=== PATIENT | female | born 1995 | race Caucasian/White ===

== ENCOUNTER 2023-05-15 12:06 | Inpatient (IN) ==
[2023-05-15] MEDS ORDERED: LIDOCAINE 1% LOCAL 20 ML VIAL INFIL PRN (12:52)
[2023-05-15] MEDS ORDERED: OXYTOCIN 30 UNITS/NSS 30 UNITS/500 ML BAG IV PRN ×2 (12:52→20:30)
[2023-05-15 13:26] LABS: Hematocrit (blood only) 40.2 % (37.0-47.0); Hemoglobin 12.9 g/dl (12.0-16.0); Mean Corpuscular Hemoglobin 27.1 pg (25.0-34.0); Mean Corpuscular Hgb Conc 32.1 g/dL (32.0-36.0); Mean Corpuscular Volume 84.5 fL (80.0-100.0); Mean Platelet Volume 11.2 fL (9.4-12.4); Platelet Count 213 K/uL (130-400); RDW Coefficient of Variation 14.6 % (11.5-14.5); RDW Standard Deviation 45.1 fL (36.4-46.3); Red Blood Count 4.76 M/uL (4.20-5.40); White Blood Count 9.55 K/ul (4.8-10.8)
[2023-05-15 13:38] LABS: Alanine Aminotransferase 17 U/L (7-52); Albumin Globulin Ratio 1.3 (0.9-2); Albumin Level 3.7 gm/dl (3.4-5.0); Alkaline Phosphatase 237 U/L (34-104); Anion Gap 7 (3-11); Aspartate Aminotransferase 24 U/L (13-39); BUN Creatinine Ratio 15.8 (10-20); Bilirubin,Total 0.4 mg/dl (0.2-1.0); Blood Urea Nitrogen 9 mg/dl (6-23); Calcium 9.5 mg/dl (8.6-10.3); Carbon Dioxide 26 mmol/L (21-32); Chloride 105 mmol/L (98-107); Est GFR (African American) 147.2 ml/min; Globulin 2.8 gm/dl (2.5-4.0); Glucose 95 mg/dl (70-99(Fasting)); Potassium 4.4 mmol/L (3.5-5.1); Sodium 138 mmol/L (136-145); Total Protein 6.5 gm/dl (6.0-8.3)
[2023-05-15 13:56] LABS: Creatinine Urine Random 64.9 mg/dl; Protein Creatinine Ratio Urine 0.2 (0-0.2); Total Protein Urine Random 11.9 mg/dl (0-11.9)
--- NOTE | 2023-05-15 14:18 | History & Physical Report ---
Date of Service May 15, 2023 Assessment & Plan (1) Post-dates : Plan: Cytotec for ripening followed by Oxytocin Admission and Anticipated Discharge Date Admission Date: May 15, 2023 History of Present Illness Chief Complaint: ruptured membranes at term Primary Care Provider: IFRAH PCP 27 F P0000 at 40.2 with complaint of leakage of clear fluid since yesterday at 0830. Seen in office and was Nitrazine positive with ROM positive. GBS is negative. 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 History neg Review of Systems All systems reviewed & are unremarkable except as noted in HPI & below Physical Exam Constitutional: WD/WN, vitals as above Eyes: PERRL, conjunctivae normal, anicteric sclerae Respiratory: normal respiratory effort, lungs clear to auscultation Cardiovascular: RRR, no murmur, no edema Gastrointestinal (Abdomen): Inspection/Auscultation: abdomen normal to inspection Musculoskeletal: Extremities: extremities normal to inspection Skin: no rashes, warm and dry Neurologic: patellar DTR's 2+ bilat, sensation intact Psychiatric: A+Ox3, euthymic affect Genitourinary: no vaginal lesions, no adnexal mass Manual OB Exam: + cervical dilation 1 cm, + cervical effacement 60% and + station high OB Exam Monitor Tracing: + external FHT monitor used, + external uterine monitor used, + category I and + normal FHT variability EFW 8-9 lbs. Results & Data Vital Signs (Past 12 Hours) Vital Signs Pulse Resp BP 05/15/23 13:40 106 H 05/15/23 13:40 144/97 H 05/15/23 13:11 18 05/15/23 12:43 106 H 150/84 H 05/15/23 12:27 104 H 158/92 H Laboratory Results Laboratory Results - last 24 hr 05/15/23 05/15/23 13:00 13:07 WBC 9.55 RBC 4.76 Hgb 12.9 Hct 40.2 MCV 84.5 MCH 27.1 MCHC 32.1 RDW Std Deviation 45.1 RDW Coeff of Linda 14.6 H Plt Count 213 MPV 11.2 Sodium 138 Potassium 4.4 Chloride 105 Carbon Dioxide 26 Anion Gap 7 BUN 9 Creatinine 0.57 L Est Cr Clr Drug Dosing Not Reportable Est GFR ( Amer) 147.2 Est GFR (Non-Af Amer) 127.0 BUN/Creatinine Ratio 15.8 Glucose 95 Calcium 9.5 Total Bilirubin 0.4 AST 24 ALT 17 Alkaline Phosphatase 237 H Total Protein 6.5 Albumin 3.7 Globulin 2.8 Albumin/Globulin Ratio 1.3 Ur Random Creatinine 64.9 U Random Total Protein 11.9 Protein/Creatinin Ratio 0.2 Monitoring External Monitor Cat 1 no contractions noted (1) Post-dates Post-term type: 40-42 weeks gestation Qualified Code(s): O48.0 - Post-term
[2023-05-15] MEDS: miSOPROStoL 50 MCG TAB PO SCH (14:35)
[2023-05-15] MEDS: LACTATED RINGER'S 1,000 ML IV PRN (20:58)
--- OUTSIDE RECORDS SUMMARY | 2023-05-15 21:11 | External Medical Summary | Summary of Care ---
Author Name Unknown Organization [facility] Address [address] [place] [facility] [place] [address] Phone [phone] Care Team Providers Care Tight Barrel Inspector Name Role Phone Unavailable Primary Care Provider Unavailabl e Reason for Visit * Reason Comments Return Visit Encounter Details Date Type Department Care Team (Late st Contact Info) Description 05/01/2023 3:30 PM EST Office Visit Gynecology/Obstetric s [facility] [address] [place] [address] Trisha Garcia PA-C [address] [place] [address] Encounter for supervision of normal first in third trimester*; Maternal varicella, non-immune; Antepartum anemia complicating Allergies No known active allergiesdocumented as of this encounter (statuses as of 05/01/2023) Medications Medication Sig Dispensed Refills Start Date End Date Status 19 29-1 MG Oral Tablet Chewable Take by mouth. 0 Active Iron-Vitamin C 65-125 MG Oral Tablet (Vitron C)Indications:Antepar karly anemia complicating Take 1 Tablet by mouth 2 times a day. 60 Tablet 3 02/27/2023 Active Breast Pump Dispense double electric breast pump. Dx Z39.1 1 Each 0 04/12/2023 Active documented as of this encounter (statuses as of 05/01/2023) Active Problems Problem Noted Date Diagnosed Date Antepartum anemia complicating 023 Overview: Declines iron infusions. Agreeable to oral iron Maternal varicella, non-immune 10/12/2022 Supervision of normal first 10/11/2022 Estimated Date of Delivery Comme nts Yes 05/13/2023 Based on last me nstrual period of 08/06/2022 (Exact Date) documented as of this encounter (statuses as of 05/01/2023) Immunizations Name Administration Dates Next Due SEASONAL INFLUENZA, PF, 6 M & Above, IM , (FLULAVAL or FLUZONE) 04/04/2023 TDAP (age 10 and older)(Boostrix) 03/07/2023 documented as of this encounter Social History Tobacco Use Types Packs/Day Years Used Date Smoking Tobacco: Never Smokeless Tobacco: Never Alcohol Use Standard Drinks/Week Comments Not Currently 0 (1 standard drink = 0.6 oz pur e alcohol) PHQ-2 Answer Date Recorded PHQ Adult Total Score 0 05/01/2023 Hunger Vital Sign Answer Date Recorded Within the past 12 months, y ou worried that your food would run out before you got the money to buy more. Never true 01/05/20 23 Within the past 12 months, t he food you bought just didn't last and you didn't have money to get more. Never true 01/04/2023 [place] Depression Scale Answer Date Recorded [place] Depression Scale Total 6 04/04/2023 The thought of harming myself has occurred to me . Never 04/04/2023 Estimated Date of Delivery Comme nts Yes 05/13/2023 Based on last me nstrual period of 08/06/2022 (Exact Date) Sex and Gender Information Value Date Recorded Sex Assigned at Female 09/20/2022 8:44 PM EDT Gender Identity Female 09/20/2022 8:44 PM EDT Sexual Orientation Straight 09/20/2022 8: 44 PM EDT Job Start Date Occupation Industry Not on file Not on file Not on file documented as of this encounter Last Filed Vital Signs Vital Sign Reading Time Taken Comments Blood Pressure 108/68 05/01/2023 2:56 PM EST Pulse - - Temperature - - Respiratory Rate - - Oxygen Saturation - - Inhaled Oxygen Concentration - - Weight 91.2 kg (201 lb) 05/01/2023 2:56 PM EST Height 172.7 cm (5' 8") 05/01/2023 2:56 PM EST Body Mass Index 30.56 05/01/2023 2:56 PM EST documented in this encounter Progress Notes * Trisha Garcia PA-C - 05/01/2023 3:13 PM EST 38w2d First time seeing patient. Vertex by ultrasound today. + FHT 152 bpm. Denies bleeding, leaking, contractions. Baby is moving well. Does not wish to discuss IOL today. Labor precautions. RTC in 1 week Trisha Garcia PA-C * Zena Galindo LPN - 05/01/2023 2:58 PM EST 38w2d Pt denies any concerns. documented in this encounter Plan of Treatment Upcoming Encounters Date Type Department Care Team (Late st Contact Info) Description 05/10/2023 11:30 AM EST [facility] [address] [place] [address] BackerPayton CRNP [address] [place] [address] Health Maintenance Due Date Last Done Comments Hepatitis B (1 of 3 - 3-dose series) 1995 COVID-19 Vaccine (#1) 06/15/1996 Depression Screening 2007 Pap Smear 05/07/2024 05/07/2021 DTaP,Tdap,and Td Vaccines (2 - Td or Tdap) 03/07/2033 03/07/2023 Influenza Vaccine (FLU shot) Completed 04/04/2023 GARDASIL-HPV IMMUNIZATION SERIES Aged Out No longer eligible based on patient's age to complete this topic MENINGOCOCCAL (MENACTRA/MENVEO) Aged Out No longer eligible based on patient's age to complete this topic Pneumococcal Vaccine: Pediat rics (0 to 5 Years) and At-Risk Patients (6 to 64 Years) Aged Out No longer eligi ble based on patient's age to complete this topic documented as of this encounter Medical Devices Not on filedocumented as of this encounter Visit Diagnoses Diagnosis Encounter for supervision of normal first in third trimester- Primary Supervision of normal first Maternal varicella, non-immune Supervision of other high-risk Antepartum anemia complicating Anemia, antepartum documented in this encounter
--- OUTSIDE RECORDS SUMMARY | 2023-05-15 21:11 | External Medical Summary | Summary of Care ---
Author Name Unknown Organization [facility] Address [address] [place] [address] Phone [phone] Care Team Providers Care Professor Of Architecture Name Role Phone Unavailable Primary Care Provider Unavailabl e Reason for Visit * Reason Comments Return Visit Encounter Details Date Type Department Care Team (Late st Contact Info) Description 04/20/2023 2:15 PM EST Office Visit Gynecology/Obstetric s [facility] [address] [place] [address] Pham Mixon CRNP [address] [place] [address] Encounter for supervision of normal first in third trimester*; Maternal varicella, non-immune; Antepartum anemia complicating Allergies No known active allergiesdocumented as of this encounter (statuses as of 04/20/2023) Medications Medication Sig Dispensed Refills Start Date [...] as of this encounter (statuses as of 04/20/2023) Active Problems Problem Noted Date Diagnosed Date Antepartum anemia complicating 023 Overview: Declines iron infusions. Agreeable to oral iron Maternal varicella, non-immune 10/12/2022 Supervision of normal first 10/11/2022 Estimated Date of Delivery Comme nts Yes 05/13/2023 Based on last me nstrual period of 08/06/2022 (Exact Date) documented as of this encounter (statuses as of 04/20/2023) Immunizations Name Administration Dates Next Due SEASONAL INFLUENZA, PF, 6 M & Above, IM , (FLULAVAL or FLUZONE) 04/04/2023 TDAP (age 10 and older)(Boostrix) 03/07/2023 documented as of this encounter Social History Tobacco Use Types Packs/Day Years Used Date Smoking Tobacco: Never Smokeless Tobacco: Never Alcohol Use Standard Drinks/Week Comments Not Currently 0 (1 standard drink = 0.6 oz pur e alcohol) Hunger Vital Sign Answer Date Recorded Within the past 12 months, y ou worried that your food would run out before you got the money to buy more. Never true 01/05/20 Within the past 12 months, t he food you bought just didn't last and you didn't have money to get more. Never true 01/04/2023 [place] Depression Scale Answer Date Recorded [place] Depression Scale Total 6 04/04/2023 The thought [...] Sign Reading Time Taken Comments Blood Pressure 102/62 04/20/2023 2:06 PM EST Pulse - - Temperature - - Respiratory Rate - - Oxygen Saturation - - Inhaled Oxygen Concentration - - Weight 89.5 kg (197 lb 6.4 oz) 04/20/2023 2:06 P M EST Height 172.7 cm (5' 8") 04/20/2023 2:06 PM EST Body Mass Index 30.01 04/20/2023 2:06 PM EST documented in this encounter Progress Notes * Pham Mixon CRNP - 04/20/2023 2:31 PM EST 36w5d Complaints: none Feeling well overall. Good FM. No contractions, bleeding, or LOF. Uncertain of position, u/s with next visit. GBS today. Pile Header Documentation Provider requested credit coordinator. Name of credit coordinator: NANCY Steward * Zena Galindo LPN - 04/20/2023 2:15 PM EST 36w5d Pt denies any concerns, GBS today documented in this encounter Plan of Treatment Upcoming Encounters Date Type Department Care Team (Late st Contact Info) Description 05/01/2023 2:15 PM EST Imaging Radiology [facility] [address] [place] [address] 05/01/2023 3:30 PM EST Office Visit Gynecology/Obstetrics [facility] [address] [place] [address] Trisha Garcia PA-C [address] [place] [address] Pending Results Name Type Priority Associated Diagnoses Date /Time GROUP B STREP CULTURE/PCR Lab Routine Encounter for supervision of normal first in third trimester 04/20/2023 2:35 PM EST Scheduled Orders Name Type Priority Associated Diagnoses Orde r Schedule US PREG LIMITED 1 OR MORE FETUSES Medical Imaging Routine Encounter for supervision of normal first in third trimester Expected: 04/27/2023 (Approximate), Expires: 05/20/2024 Health Maintenance Due Date Last Done Comments [...]
--- OUTSIDE RECORDS SUMMARY | 2023-05-15 21:11 | External Medical Summary ---
Author Name Unknown Address Unknown Organization [facility] [address] [place] [address] Laboratory Report Ordering Provider Test Date Status MUSA HANSEN 05/15/2023 11:24:01 Final Observation Date Value Abnormality Reference (Units ) Status Premature Rupture Membrane risk 05/15/2023 11:24:01 Positive Abnormal Negative Final Performing [facility] [place] [address]
--- OUTSIDE RECORDS SUMMARY | 2023-05-15 21:11 | External Medical Summary | Summary of Care ---
Author Name Unknown Organization [facility] Address [address] [facility] [address] Phone [phone] Care Team Providers Care Public Transit Trolley Driver Name Role Phone Unavailable Primary Care Provider Unavailabl e Encounter Details Date Type Department Care Team (Late st Contact Info) Description 04/20/2023 Telephone Gynecology/Obstetrics [facility] [address] [place] [address] Pham Mixon CRNP [address] [place] [address] Allergies No known active allergiesdocumented as of [...] money to get more. Never true 01/04/2023 [place] Depression Scale Answer Date Recorded [place] Depression Scale Total 6 04/04/2023 The thought [...] on file documented as of this encounter Miscellaneous Notes * Telephone Encounter - Zena Galindo LPN - 04/20/2023 3:33 PM EST [facility] pre-admit forms and plan faxed, placed in scan bin. documented in this encounter Plan of Treatment Upcoming Encounters Date Type Department Care Team (Late st Contact Info) Description 05/01/2023 2:15 PM EST Imaging Radiology [facility] [address] [facility] [place] [address] 05/01/2023 3:30 PM EST Office Visit Gynecology/Obstetrics [facility] [address] [place] [address] Trisha Garcia PA-C [address] [place] [address] Health Maintenance Due Date Last Done Comments [...]
--- OUTSIDE RECORDS SUMMARY | 2023-05-15 21:11 | External Medical Summary | Summary of Care ---
Author Name Unknown Organization [facility] Address [address] [facility] [place] [address] Phone [phone] Care Team Providers Care Photolith Operator Name Role Phone Unavailable Primary Care Provider Unavailabl e Reason for Visit * Reason Comments Return Visit Encounter Details Date Type Department Care Team (Late st Contact Info) Description 05/10/2023 11:30 AM EST Office Visit Gynecology/Obstetric s [facility] [address] [place] [address] BackPayton cage CRNP [address] [place] [address] Encounter for supervision of normal first in third trimester*; Maternal varicella, non-immune; Antepartum anemia complicating Allergies No known active allergiesdocumented as of this encounter (statuses as of 05/10/2023) Medications Medication Sig Dispensed Refills Start Date [...] as of this encounter (statuses as of 05/10/2023) Active Problems Problem Noted Date Diagnosed Date Antepartum anemia complicating 023 Overview: Declines iron infusions. Agreeable to oral iron Maternal varicella, non-immune 10/12/2022 Supervision of normal first 10/11/2022 Estimated Date of Delivery Comme nts Yes 05/13/2023 Based on last me nstrual period of 08/06/2022 (Exact Date) documented as of this encounter (statuses as of 05/10/2023) Immunizations Name Administration Dates Next Due SEASONAL [...] money to get more. Never true 01/04/2023 [place] Depression Scale Answer Date Recorded [place] Depression Scale Total 6 04/04/2023 The thought [...] Sign Reading Time Taken Comments Blood Pressure 110/66 05/10/2023 11:23 AM EST Pulse - - Temperature - - Respiratory Rate - - Oxygen Saturation - - Inhaled Oxygen Concentration - - Weight 91.6 kg (202 lb) 05/10/2023 11:23 AM EST Height - - Body Mass Index 30.71 05/01/2023 2:56 PM EST documented in this encounter Progress Notes * Payton Enriquez CRNP - 05/10/2023 11:27 AM EST 39w4d Good movement. No signs of labor. Wants to wait until next visit to plan post dates IOL. Discussed peds. Plans to use NFP , aware of limitations with . 1 week return NANCY Segovia * Radha Moise LPN - 05/10/2023 11:23 AM EST 39w4d Denies vaginal bleeding/rom + movement No new concerns documented in this encounter Plan of Treatment Upcoming Encounters Date Type Department Care Team (Late st Contact Info) Description 05/17/2023 11:45 AM EST Office Visit Gynecology/Obstetrics [facility] [address] [place] [address] Trisha Garcia PA-C [address] [place] [address] Health Maintenance Due Date Last Done Comments Hepatitis B (1 of 3 - 3-dose series) 1995 COVID-19 Vaccine (#1) 06/15/1996 Depression Screening 05/01/2024 05/01/2023 Pap Smear 05/07/2024 05/07/2021 DTaP,Tdap,and Td Vaccines [...]
--- OUTSIDE RECORDS SUMMARY | 2023-05-15 21:12 | External Medical Summary | Summary of Care ---
Author Name Unknown Organization [facility] Address [address] [facility] [place] [address] Phone [phone] Care Team Providers Care Medical Chief Technician Name Role Phone Unavailable Primary Care Provider Unavailabl e Encounter Details Date Type Department Care Team Description 02/23/2023 Telephone [facility] [address] [place] [address] Pham Mixon CRNP [address] [place] [address] Allergies No known active allergiesdocumented as of this encounter (statuses as of 02/27/2023) Medications Medication Sig Dispensed Refills Start Date End Date Status 19 29-1 MG Oral Tablet Chewable Take by mouth. 0 Activ e documented as of this encounter (statuses as of 02/27/2023) Active Problems Problem Noted Date Antepartum anemia complicating 02/23/2023 Overview: Blood management Maternal varicella, non-immune 3 Supervision of normal first Estimated Date of Delivery Comme nts Yes 05/13/2023 Based on last me nstrual period of 08/06/2022 (Exact Date) documented as of this encounter (statuses as of 02/27/2023) Social History Tobacco Use Types Packs/Day Years Used Date Smoking Tobacco: Never Smokeless Tobacco: Never Alcohol Use Standard Drinks/Week Comments Not Currently 0 (1 standard drink = 0.6 oz pur e alcohol) Food Insecurity Answer Date Recorded Within the past 12 months, y ou worried that your food would run out before you got money to buy more. Never true 01/05/2023 Within the past 12 months, t he food you bought just didn't last and you didn't have money to get more. Never true 01/05/2023 Estimated Date of Delivery Comme nts Yes 05/13/2023 Based on last me nstrual period of 08/06/2022 (Exact Date) Sex Assigned at Date Recorded Female 09/20/2022 8:44 PM E DT Job Start Date Occupation Industry Not on file Not on file Not on file documented as of this encounter Miscellaneous Notes * Telephone Encounter - Alexia Lynhc RN - 02/27/2023 11:41 AM EDT Attempted to call patient. No answer, LVM to return call. * Telephone Encounter - NANCY Robles - 02/27/2023 10:06 AM EDT Please try again to call pt to notify of original message. * Telephone Encounter - Kavita King LPN - 02/23/2023 1:21 PM EDT left message for patient to call office * Telephone Encounter - NANCY Robles - 02/23/2023 12:49 PM EDT Please make pt aware she passed her glucola but she is anemic. Recommend referral to blood management for iron infusions. If agreeable route back and I'll place order. In addition her TSH is mildly elevated. Would recommend she reach out to PCP to see if/when additional testing would be indicated. It was done reflexively because of the anemia. documented in this encounter Plan of Treatment Upcoming Encounters Date Type Specialty Care Team Description 03/07/2023 Office Visit Gynecology Obstetrics Pham Mixon CRNP [address] [place] [address] Health Maintenance Due Date Last Done Comments Hepatitis B (1 of 3 - 3-dose series) 1995 COVID-19 Vaccine (#1) 06/15/1996 Depression Screening 2007 DTaP,Tdap,and Td Vaccines (1 - Tdap) 12/13/2014 Influenza Vaccine (FLU shot) (#1) 2023 Pap Smear 05/07/2024 05/07/2021 Hepatitis C Screening Completed 10/11/2022 , 10/11/2022, 10/11/2022 GARDASIL-HPV IMMUNIZATION SERIES Aged Out No longer eligible b ased on patient's age to complete this topic MENINGOCOCCAL (MENACTRA/MENVEO) Aged Out No longer eligible b ased on patient's age to complete this topic Pneumococcal Vaccine: Pediatrics (0 to 5 Years) and At-Risk Patients (6 to 64 Years) Aged Out No longer eligible b ased on patient's age to complete this topic documented as of this encounter Medical Devices Not on filedocumented as of this encounter
--- OUTSIDE RECORDS SUMMARY | 2023-05-15 21:12 | External Medical Summary | Summary of Care ---
Author Name Unknown Organization [facility] Address [address] [facility] [place] [address] Phone [phone] Care Team Providers Care Red Hat Linux Administrator Name Role Phone Unavailable Primary Care Provider Unavailabl e Reason for Visit * Reason Comments Return Visit Encounter Details Date Type Department Care Team Description 03/21/2023 Office Visit Gynecology/Obstetrics [facility] [address] [place] [address] Pham Mixon CRNP [address] [place] [address] Encounter for supervision of normal first in third trimester*; Maternal varicella, non-immune; Antepartum anemia complicating Allergies No known active allergiesdocumented as of this encounter (statuses as of 03/21/2023) Medications Medication Sig Dispensed Refills Start Date End Date Status 19 29-1 MG Oral Tablet Chewable Take by mouth. 0 Active Iron-Vitamin C 65-125 MG Oral Tablet (Vitron C)Indications:Antepart um anemia complicating Take 1 Tablet by mouth 2 times a day. 60 Tablet 3 02/27/2023 Active documented as of this encounter (statuses as of 03/21/2023) Active Problems Problem Noted Date Antepartum anemia complicating 02/23/2023 Overview: Declines iron infusions. Agreeable to oral iron Maternal varicella, non-immune Supervision of normal first Estimated Date of Delivery Comme nts Yes 05/13/2023 Based on last me nstrual period of 08/06/2022 (Exact Date) documented as of this encounter (statuses as of 03/21/2023) Immunizations Name Administration Dates Next Due TDAP (age 10 and older)(Boostrix) 03/07/2023 documented [...] Sign Reading Time Taken Comments Blood Pressure 118/76 03/21/2023 8:16 AM EDT Pulse - - Temperature - - Respiratory Rate - - Oxygen Saturation - - Inhaled Oxygen Concentration - - Weight 85.7 kg (189 lb) 03/21/2023 8:16 AM EDT Height 172.7 cm (5' 8") 03/21/2023 8:16 AM EDT Body Mass Index 28.74 03/21/2023 8:16 AM EDT documented in this encounter Progress Notes * NANCY Robles - 03/21/2023 8:33 AM EDT 32w3d No concerns. Baby moving well. No contractions, bleeding, or LOF. Taking iron as directed. Repeat CBC today. NANCY Robles documented in this encounter Nursing Notes * Edith Culp LPN - 03/21/2023 8:16 AM EDT 32w3d Will stop at lab for CBC after todays appt Denies concerns. Leaking breast milk at night. documented in this encounter Plan of Treatment Upcoming Encounters Date Type Specialty Care Team Description 04/04/2023 Office Visit Gynecology Obstetrics Pham Mixon CRNP [address] [place] [address] Health Maintenance Due Date Last Done Comments Hepatitis B (1 of 3 - 3-dose series) 1995 COVID-19 Vaccine (#1) 06/15/1996 Depression Screening 2007 Influenza Vaccine (FLU shot) (#1) 2023 Pap Smear 05/07/2024 05/07/2021 DTaP,Tdap,and Td Vaccines (2 - Td or Tdap) 03/07/2033 03/07/2023 GARDASIL-HPV IMMUNIZATION SERIES Aged Out No longer [...]
--- OUTSIDE RECORDS SUMMARY | 2023-05-15 21:12 | External Medical Summary | Summary of Care ---
Author Name Unknown Organization [facility] Address [address] [facility] [place] [address] Phone [phone] Care Team Providers Care Culinary Arts Teacher Name Role Phone Unavailable Primary Care Provider Unavailabl e Reason for Visit * Reason Comments Return Visit Encounter Details Date Type Department Care Team Description 02/07/2023 Office Visit Gynecology/Obstetrics [facility] [address] [place] [address] Pham Mixon CRNP [address] [place] [address] Encounter for supervision of normal first in second trimester*; Maternal varicella, non-immune Allergies No known active allergiesdocumented as of this encounter (statuses as of 02/07/2023) Medications Medication Sig Dispensed Refills Start Date End Date Status 19 29-1 MG Oral Tablet Chewable Take by mouth. 0 Activ e documented as of this encounter (statuses as of 02/07/2023) Active Problems Problem Noted Date Maternal varicella, non-immune 3 Supervision of normal first Estimated Date of Delivery Comme nts Yes 05/13/2023 Based on last me nstrual period of 08/06/2022 (Exact Date) documented as of this encounter (statuses as of 02/07/2023) Social History Tobacco Use Types Packs/Day Years [...] Sign Reading Time Taken Comments Blood Pressure 112/62 02/07/2023 8:05 AM EDT Pulse - - Temperature - - Respiratory Rate - - Oxygen Saturation - - Inhaled Oxygen Concentration - - Weight 78 kg (172 lb) 02/07/2023 8:05 AM EDT Height 172.7 cm (5' 8") 02/07/2023 8:05 AM EDT Body Mass Index 26.15 02/07/2023 8:05 AM EDT documented in this encounter Progress Notes * NANCY Robles - 02/07/2023 8:19 AM EDT 26w3d Complaints: none Feeling well overall. Good FM. No contractions, bleeding, or LOF. Glucola with next visit. NANCY Robles documented in this encounter Nursing Notes * Dionne Landon LPN - 02/07/2023 8:06 AM EDT 26w3d Denies any issues documented in this encounter Plan of Treatment Upcoming Encounters Date Type Specialty Care Team Description 02/22/2023 Laboratory Laboratory Kwesi Valle [address] [facility] [place] [address] Scheduled Orders Name Type Priority Associated Diagnoses Orde r Schedule 50-G GESTATIONAL GLUCOSE, 1 HOUR Lab Routine Encounter for supervision of normal first in second trimester Expected: 02/14/2023 (Approximate), Expires: 02/08/2024 CBC WITH WBC DIFFERENTIAL AND ANEMIA REFLEX WORKUP Lab Routine Encounter for supervision of normal first in second trimester Expected: 02/14/2023 (Approximate), Expires: 02/08/2024 SYPHILIS ANTIBODY SCREEN WITH REFLEX TO RPR Lab Routine Encounter for supervision of normal first in second trimester Expected: 02/14/2023 (Approximate), Expires: 02/08/2024 Health Maintenance Due Date Last Done Comments Hepatitis B (1 of 3 - 3-dose series) 1995 COVID-19 Vaccine (#1) 06/15/1996 Depression Screening, Annual for Pts 12 and Over 2007 DTaP,Tdap,and Td Vaccines (1 - Tdap) [...] Encounter for supervision of normal first in second trimester- Primary Supervision of normal first Maternal varicella, non-immune Supervision of other high-risk documented in this encounter
--- OUTSIDE RECORDS SUMMARY | 2023-05-15 21:12 | External Medical Summary | Summary of Care ---
Author Name Unknown Organization [facility] Address [address] [place] [address] Phone [phone] Care Team Providers Care Enrollment Counselor Name Role Phone Unavailable Primary Care Provider Unavailabl e Reason for Visit * Reason Comments Outpatient Testing Encounter Details Date Type Department Care Team Description 02/22/2023 Laboratory [facility] [address] [facility] 132 [place] [address] Encounter for supervision of normal first in second trimester Allergies No known active allergiesdocumented as of this encounter (statuses as of 02/22/2023) Medications Medication Sig Dispensed Refills Start Date End Date Status 19 29-1 MG Oral Tablet Chewable Take by mouth. 0 Activ e documented as of this encounter (statuses as of 02/22/2023) Active Problems Problem Noted Date Maternal varicella, non-immune 3 Supervision of normal first Estimated Date of Delivery Comme nts Yes 05/13/2023 Based on last me nstrual period of 08/06/2022 (Exact Date) documented as of this encounter (statuses as of 02/22/2023) Social History Tobacco Use Types Packs/Day Years [...] on file documented as of this encounter Plan of Treatment Upcoming Encounters Date Type Specialty Care Team Description 03/07/2023 Office Visit Gynecology Obstetrics Ap[place], NANCY Villafuerte [address] [place] [address] Pending Results Name Type Priority Associated Diagnoses Date /Time 50-G GESTATIONAL GLUCOSE, 1 HOUR Lab Routine Encounter for supervision of normal first in second trimester 02/22/2023 10:22 AM EDT CBC WITH WBC DIFFERENTIAL AND ANEMIA REFLEX WORKUP Lab Routine Encounter for supervision of normal first in second trimester 02/22/2023 10:22 AM EDT SYPHILIS ANTIBODY SCREEN WITH REFLEX TO RPR Lab Routine Encounter for supervision of normal first in second trimester 02/22/2023 10:22 AM EDT ANEMIA CBC Lab Routine Encounter for supervision of normal first in second trimester 02/22/2023 10:22 AM EDT DIFFERENTIAL, AUTOMATED Lab Routine Encounter for supervision of normal first in second trimester 02/22/2023 10:22 AM EDT ANEMIA REFLEX CHEMISTRY HOLD Lab Routine Encounter for supervision of normal first in second trimester 02/22/2023 10:22 AM EDT SYPHILIS ANTIBODY SCREEN Lab Routine Encounter for supervision of normal first in second trimester 02/22/2023 10:22 AM EDT Health Maintenance Due Date Last Done Comments [...] supervision of normal first in second trimester Supervision of normal first documented in this encounter
--- OUTSIDE RECORDS SUMMARY | 2023-05-15 21:12 | External Medical Summary | Summary of Care ---
Author Name Unknown Organization [facility] Address [address] [facility] [address] Phone [phone] Care Team Providers Care Supervisor Fruit Grading Name Role Phone Unavailable Primary Care Provider Unavailabl e Reason for Visit * Reason Comments Return Visit Encounter Details Date Type Department Care Team (Late st Contact Info) Description 04/20/2023 2:15 PM EST Office Visit Gynecology/Obstetric s Francesca Valle [address] [place] [address] Pham Mixon CRNP [address] [place] [address] Encounter for supervision of normal first in [...] money to get more. Never true 01/04/2023 [place] Depression Scale Answer Date Recorded [place] Depression Scale Total 6 04/04/2023 The thought [...] position, u/s with next visit. GBS today. Faucets Assembler Documentation Provider requested principal automation engineer. Name of principal automation engineer: NANCY Steward * Zena Galindo LPN - 04/20/2023 2:15 PM EST 36w5d Pt denies any concerns, GBS today documented in this encounter Plan of Treatment Upcoming Encounters Date Type Department Care Team (Late st Contact Info) Description 05/01/2023 2:15 PM EST [facility] [place] [address] 05/01/2023 3:30 PM EST Office Visit Gynecology/Obstetrics [facility] [address] [place] [address] Trisha Garcia PA-C [address] [place] [address] Pending Results Name Type Priority Associated Diagnoses [...]
--- OUTSIDE RECORDS SUMMARY | 2023-05-15 21:12 | External Medical Summary | Summary of Care ---
Author Name Unknown Organization [facility] [address] [facility] [address] Phone [phone] Care Team Providers Care Diving Fisher Name Role Phone Unavailable Primary Care Provider Unavailabl e Encounter Details Date Type Department Care Team (Late st Contact Info) Description 04/04/2023 10:40 AM EDT Immunization Ancillary [facility] [address] [facility] [place] [address] [facility] Shot Clinic [facility] [address] Arrived Allergies No known active allergiesdocumented as of this encounter (statuses as of 04/04/2023) Medications Medication Sig Dispensed Refills Start Date End Date Status 19 29-1 MG Oral Tablet Chewable Take by mouth. 0 Active Iron-Vitamin C 65-125 MG Oral Tablet (Vitron C)Indications:Antepart um anemia complicating Take 1 Tablet by mouth 2 times a day. 60 Tablet 3 02/27/2023 Active documented as of this encounter (statuses as of 04/04/2023) Active Problems Problem Noted Date Diagnosed Date Antepartum anemia complicating 023 Overview: Declines iron infusions. Agreeable to oral iron Maternal varicella, non-immune 10/12/2022 Supervision of normal first 10/11/2022 Estimated Date of Delivery Comme nts Yes 05/13/2023 Based on last me nstrual period of 08/06/2022 (Exact Date) documented as of this encounter (statuses as of 04/04/2023) Immunizations Name Administration Dates Next Due SEASONAL [...] money to get more. Never true 01/04/2023 [place] Depression Scale Answer Date Recorded [place] Depression Scale Total 6 04/04/2023 The thought [...] Care Team (Late st Contact Info) Description 04/18/2023 8:45 AM EST Office Visit Gynecology/Obstetrics [facility] [address] [place] [address] Payton Enriquez CRNP [address] [place] [address] Health Maintenance Due Date Last Done Comments [...]
--- OUTSIDE RECORDS SUMMARY | 2023-05-15 21:12 | External Medical Summary | Summary of Care ---
Author Name Unknown Organization [facility] Address [address] [facility] [place] [address] Phone [phone] Care Team Providers Care Sales Supervisor Name Role Phone Unavailable Primary Care Provider Unavailabl e Encounter Details Date Type Department Care Team Description 02/23/2023 Tele[facility] [address] [place] [address] David Mixon CRNP [address] [place] [address] [...] Agreeable to oral iron Maternal varicella, non-immune 3 Supervision of normal [...] as of this encounter Miscellaneous Notes * Addendum Note - NANCY Robles - 02/27/2023 1:10 PM EDTAddended by: DAVID MIXON on: 02/27/2023 01:10 PM Modules accepted: Orders * Telephone Encounter - NANCY Robles - 02/27/2023 1:09 PM EDT Sent to pharmacy. * Telephone Encounter - Alexia Lynch RN - 02/27/2023 12:40 PM EDT Patient called back. Made aware. Patient states she is not comfortable with iron infusions at this time. Would prefer to do an oral supplement. Patient reports that her does not have iron init and she is not currently taking a supplement. Patient uses [facility] pharmacy [facility]. * Telephone Encounter - Alexia Lynch RN - 02/27/2023 11:41 AM EDT Attempted [...] Team Description 03/07/2023 Office Visit Gynecology Obstetrics David Mixon CRNP [address] [facility] [place] [address] Health Maintenance Due Date Last Done Comments [...] as of this encounter Visit Diagnoses Diagnosis Antepartum anemia complicating - Primary Anemia, antepartum documented in this encounter
--- OUTSIDE RECORDS SUMMARY | 2023-05-15 21:12 | External Medical Summary ---
Author Name Unknown Address Unknown Organization [id number]:[facility] [address] [place] [address] Laboratory Report Ordering Provider Test Date Status ARLIN HERNANDEZ 02/22/2023 10:22:53 Final Observation Date Value Abnormality Reference (Units ) Status Creatinine 02/22/2023 10:22:53 0.5 0.5-1.0 (mg/dL) Final Glomerular filtration rate/1.73 sq M.predicted [Volume Rate/Area] in Serum, Plasma or Blood by Creatinine-based formula (CKD-EPI) 02/22/2023 10:22:53 >90 >=60 (mL/min) Final eGFR is calculated based on the CKD-EPI 2020 equation Performing Location [facility] [address] [place] [address]
--- OUTSIDE RECORDS SUMMARY | 2023-05-15 21:12 | External Medical Summary | Summary of Care ---
Author Name Unknown Organization [facility] Address [address] [facility] [place] [address] Phone [phone] Care Team Providers Care Yarn Skeins Examiner Name Role Phone Unavailable Primary Care Provider Unavailabl e Reason for Visit * Reason Comments Return Visit Encounter Details Date Type Department Care Team (Late st Contact Info) Description 04/04/2023 10:15 AM EDT Office Visit Gynecology/Obstetric s ChaneyTundemonie Valle [address] [place] [address] Pham Mixon CRNP [address] [place] [address] Encounter for supervision of normal first in [...] money to get more. Never true 01/04/2023 [place] Depression Scale Answer Date Recorded [place] Depression Scale Total 6 04/04/2023 The thought [...] Sign Reading Time Taken Comments Blood Pressure 118/74 04/04/2023 10:16 AM EDT Pulse - - Temperature - - Respiratory Rate - - Oxygen Saturation - - Inhaled Oxygen Concentration - - Weight 87.9 kg (193 lb 12.8 oz) 023 10:16 AM EDT Height 172.7 cm (5' 8") 04/04/2023 10:1 6 AM EDT Body Mass Index 29.47 04/04/2023 10:16 AM EDT documented in this encounter Progress Notes * Pham Mixon CRNP - 04/04/2023 10:27 AM EDT 34w3d Complaints: none Feeling well overall. Good FM. No contractions, bleeding, or LOF. NANCY Robles documented in this encounter Nursing Notes * Edith Munguia LPN - 04/04/2023 10:20 AM EDT 34w3d Denies concerns. Given labor instructions. documented in this encounter Plan of Treatment Upcoming Encounters Date Type Department Care Team (Late st Contact Info) Description 04/18/2023 8:45 AM EST Office Visit Gynecology/Obstetrics Chaneycelina Valle [address] [place] [address] Payton Enriquez CRNP [address] [place] [address] Health Maintenance Due Date Last Done Comments Hepatitis B (1 of 3 - 3-dose series) 1995 COVID-19 Vaccine (#1) 06/15/1996 Depression Screening 2007 Influenza Vaccine (FLU shot) (#1) 2023 023 Pap Smear 05/07/2024 05/07/2021 DTaP,Tdap,and Td Vaccines [...]
--- OUTSIDE RECORDS SUMMARY | 2023-05-15 21:12 | External Medical Summary ---
Author Name Unknown Address Unknown Organization [id number]:[facility] - [address] [place] [address] Laboratory Report Ordering Provider Test Date Status ARLIN HERNANDEZ 02/22/2023 10:22:53 Final Observation Date Value Abnormality Reference (Units ) Status Ferritin 02/22/2023 10:22:53 8 Below low normal 13- 150 (ng/mL) Final Performing Location [facility] - [address] [place] [address]
--- OUTSIDE RECORDS SUMMARY | 2023-05-15 21:12 | External Medical Summary ---
Author Name Unknown Address Unknown Organization [id number]:[facility] [place] - [address] [facility] [place] [address] Laboratory Report Ordering Provider Test Date Status ARLIN HERNANDEZ 02/22/2023 10:22:53 Final Observation Date Value Abnormality Reference (Units ) Status Treponema pallidum Ab [Presence] in Serum by Immunoassay 02/22/2023 10:22:53 Nonreactive Nonreactive Final No serologic evidence of syp hilis. No additional testing clinicially indicated at this time. Consider repeat testing in 2-4 weeks if acute or primary syphilis is suspected. Performing Location [facility] [place] - [address] [place] [address]
--- OUTSIDE RECORDS SUMMARY | 2023-05-15 21:12 | External Medical Summary | Summary of Care ---
Author Name Unknown Organization [facility] Address [address] [facility] [address] Phone [phone] Care Team Providers Care Highway Painter Helper Name Role Phone Unavailable Primary Care Provider Unavailabl e Reason for Visit * Reason Comments Return Visit Encounter Details Date Type Department Care Team Description 03/07/2023 [facility] [address] [place] [address] Pham Mixon CRNP [address] [place] [address] Encounter for supervision of normal first in third trimester*; Maternal varicella, non-immune; Antepartum anemia complicating ; Need for prophylactic vaccination with combined yzjzemjkkb-wbsxtlk-lvp tussis (DTP) vaccine Allergies No known active allergiesdocumented as of this encounter (statuses as of 03/07/2023) Medications Medication Sig Dispensed Refills Start Date End Date Status 19 29-1 MG Oral Tablet Chewable Take by mouth. 0 Active Iron-Vitamin C 65-125 MG Oral Tablet (Vitron C)Indications:Antepart um anemia complicating Take 1 Tablet by mouth 2 times a day. 60 Tablet 3 02/27/2023 Active documented as of this encounter (statuses as of 03/07/2023) Active Problems Problem Noted Date Antepartum anemia complicating 02/23/2023 Overview: Declines iron infusions. Agreeable to oral iron Maternal varicella, non-immune Supervision of normal first 05 /02/2023 Estimated Date of Delivery Comme nts Yes 05/13/2023 Based on last me nstrual period of 08/06/2022 (Exact Date) documented as of this encounter (statuses as of 03/07/2023) Immunizations Name Administration Dates Next Due TDAP [...] Sign Reading Time Taken Comments Blood Pressure 118/66 03/07/2023 10:12 AM EDT Pulse - - Temperature - - Respiratory Rate - - Oxygen Saturation - - Inhaled Oxygen Concentration - - Weight 82.1 kg (181 lb) 03/07/2023 10:12 AM EDT Height 172.7 cm (5' 8") 03/07/2023 10:12 AM EDT Body Mass Index 27.52 03/07/2023 10:12 AM EDT documented in this encounter Progress Notes * NANCY Robles - 03/07/2023 10:25 AM EDT 30w3d Complaints: none Feeling well. Good FM. No contractions, bleeding, or LOF. TDAP today. NANCY Robles documented in this encounter Nursing Notes * Edith Culp LPN - 03/07/2023 10:24 AM EDT Patient here for tdap injection. Patient doing well no complaints. Injection given IM as ordered. Patient tolerated well. Patient to follow up as directed. Patient instructed to call if any complications. Patient verbalized understanding of instructions given and her follow up appt for STEPHANIE. Injection site: Left Deltoid Medication Source: Dispensed stock medication * Edith Culp LPN - 03/07/2023 10:14 AM EDT 30w3d Denies concerns Recheck CBC at next visit. documented in this encounter Plan of Treatment Upcoming Encounters Date Type Specialty Care Team Description 03/21/2023 Office Visit Gynecology Obstetrics Pham Mixon CRNP [address] [place] [address] Scheduled Orders Name Type Priority Associated Diagnoses Orde r Schedule CBC WITH WBC DIFFERENTIAL AND ANEMIA REFLEX WORKUP Lab Routine Encounter for supervision of normal first in third trimester Expected: 03/21/2023 (Approximate), Expires: 03/07/2024 Health Maintenance Due Date Last Done Comments [...] other high-risk Antepartum anemia complicating Anemia, antepartum Need for prophylactic vaccination with combined vmuxdixgnu-yhlanau-jesbmcolz (DTP) vaccine documented in this encounter
--- OUTSIDE RECORDS SUMMARY | 2023-05-15 21:12 | External Medical Summary | Summary of Care ---
Author Name Unknown Organization [facility] Address [address] [facility] [address] Phone [phone] Care Team Providers Care Engineering Clerk Name Role Phone Unavailable Primary Care Provider Unavailabl e Reason for Visit * Reason Onset Date Comments Fax 04/19/2023 Encounter Details Date Type Department Care Team (Late st Contact Info) Description 04/19/2023 Telephone [facility] [address] [place] [address] Pham Mixon CRNP [address] [place] [address] Fax Allergies No known active allergiesdocumented as of this encounter (statuses as of 04/19/2023) Medications Medication Sig Dispensed Refills Start Date [...] as of this encounter (statuses as of 04/19/2023) Active Problems Problem Noted Date Diagnosed Date Antepartum anemia complicating 023 Overview: Declines iron infusions. Agreeable to oral iron Maternal varicella, non-immune 10/12/2022 Supervision of normal first 10/11/2022 Estimated Date of Delivery Comme nts Yes 05/13/2023 Based on last me nstrual period of 08/06/2022 (Exact Date) documented as of this encounter (statuses as of 04/19/2023) Immunizations Name Administration Dates Next Due SEASONAL [...] money to get more. Never true 01/04/2023 [place] Depression Scale Answer Date Recorded [place] Depression Scale Total 6 04/04/2023 The thought [...] Telephone Encounter - Zena Galindo LPN - 04/19/2023 3:41 PM EST Breast pump order signed by provider, faxed, placed in scan bin. documented in this encounter Plan of Treatment Upcoming Encounters Date Type Department Care Team (Late st Contact Info) Description 04/20/2023 2:15 PM EST Office Visit Gynecology/Obstetrics [address] [place] [address] Pham Mixon CRNP [address] [place] [address] Health Maintenance Due Date Last Done Comments [...]
--- OUTSIDE RECORDS SUMMARY | 2023-05-15 21:12 | External Medical Summary ---
Author Name Unknown Address Unknown Organization K01[facility] [place] [address] [facility] [address] Laboratory Report Ordering Provider Test Date Status ARLIN HERNANDEZ 03/21/2023 08:39:44 Final Observation Date Value Abnormality Reference (Units ) Status SYNC LEUKOCYTES IN BLOOD BY AUTOMATED COUNT 03/21/2023 08:39:44 12.37 Above high normal 4.00-10.80 (K/uL) Final Segs 03/21/2023 08:39:44 69.9 40.0-75.0 (%) Final Lymphs % 03/21/2023 08:39:44 16.4 Below low normal 18.0-42.0 (%) Final Monos 03/21/2023 08:39:44 7.8 1.0-11.0 (%) Final Eosinophils 03/21/2023 08:39:44 1.0 0.0-6.0 (%) Final Basos 03/21/2023 08:39:44 0.4 0.0-2.0 (%) Final Immature Granulocyte, Percent 03/21/2023 08:39:44 4.5 Above high normal 0.0-2.0 (%) Final Absolute Segs 03/21/2023 08:39:44 8.65 Above high normal 1.80-7.70 (K/uL) Final Lymphs, absolute 03/21/2023 08:39:44 2.03 1.00-4.80 (K/ul) Final Monos, Abs 03/21/2023 08:39:44 0.96 0.00-1.10 (K/uL) Final Eos, Abs 03/21/2023 08:39:44 0.12 0.00-0.70 (K/uL) Final Basos, Abs 03/21/2023 08:39:44 0.05 0.00-0.20 (K/uL) Final Immature Granulocytes, Number 03/21/2023 08:39:44 0.56 Above high normal 0.00-0.20 (K/uL) Final Performing Location [facility] [place] [address] [place] [address]
--- OUTSIDE RECORDS SUMMARY | 2023-05-15 21:12 | External Medical Summary | Summary of Care ---
Author Name Unknown Organization [facility] Address [address] [facility] [place] [address] Phone [phone] Care Team Providers Care Odd Ticket Clerk Name Role Phone Unavailable Primary Care Provider Unavailabl e Reason for Visit * Reason Comments Return Visit Encounter Details Date Type Department Care Team Description 02/22/2023 Office Visit Gynecology/Obstetrics [facility] [address] [place] [address] Pham Mixon CRNP [address] [place] [address] Encounter for supervision of normal first in third trimester*; Maternal varicella, non-immune Allergies No known [...] Sign Reading Time Taken Comments Blood Pressure 100/60 02/22/2023 9:13 AM EDT Pulse - - Temperature - - Respiratory Rate - - Oxygen Saturation - - Inhaled Oxygen Concentration - - Weight 81 kg (178 lb 9.6 oz) 02/22/2023 9:13 AM EDT Height 172.7 cm (5' 8") 02/22/2023 9:13 AM EDT Body Mass Index 27.16 02/22/2023 9:13 AM EDT documented in this encounter Progress Notes * NANCY Robles - 02/22/2023 9:41 AM EDT 28w4d Complaints: none Feeling fine. Good FM. No contractions, bleeding, or LOF. Glucola today. May want TDAP next visit. NANCY Robles * Zena Galindo LPN - 02/22/2023 9:29 AM EDT 28w4d Pt completing 28wk labs, going to consider getting tdap at next visit. documented in this encounter Plan of Treatment Upcoming Encounters Date Type Specialty Care Team Description 03/07/2023 Office Visit Gynecology Obstetrics Pham Mixon CRNP [address] [place] [address] Health Maintenance Due Date Last Done Comments [...]
--- OUTSIDE RECORDS SUMMARY | 2023-05-15 21:12 | External Medical Summary ---
Author Name Unknown Address Unknown Organization K01:LABORATORY [facility] [place] - [address] [facility] [address] Laboratory Report Ordering Provider Test Date Status ARLIN HERNANDEZ 02/22/2023 10:22:53 Final Observation Date Value Abnormality Reference (Units ) Status SYNC LEUKOCYTES IN BLOOD BY AUTOMATED COUNT 02/22/2023 10:22:53 12.71 Above high normal 4.00-10.80 (K/uL) Final Segs 02/22/2023 10:22:53 78.0 Above high normal 40.0-75.0 (%) Final Lymphs % 02/22/2023 10:22:53 12.6 Below low normal 18.0-42.0 (%) Final Monos 02/22/2023 10:22:53 6.8 1.0-11.0 (%) Final Eosinophils 02/22/2023 10:22:53 0.6 0.0-6.0 (%) Final Basos 02/22/2023 10:22:53 0.3 0.0-2.0 (%) Final Immature Granulocyte, Percent 02/22/2023 10:22:53 1.7 0.0-2.0 (%) Final Absolute Segs 02/22/2023 10:22:53 9.91 Above high normal 1.80-7.70 (K/uL) Final Lymphs, absolute 02/22/2023 10:22:53 1.60 1.00-4.80 (K/ul) Final Monos, Abs 02/22/2023 10:22:53 0.86 0.00-1.10 (K/uL) Final Eos, Abs 02/22/2023 10:22:53 0.08 0.00-0.70 (K/uL) Final Basos, Abs 02/22/2023 10:22:53 0.04 0.00-0.20 (K/uL) Final Immature Granulocytes, Number 02/22/2023 10:22:53 0.22 Above high normal 0.00-0.20 (K/uL) Final Performing Location LABORATORY [facility] - [facility] [place] [address]
--- OUTSIDE RECORDS SUMMARY | 2023-05-15 21:12 | External Medical Summary | Summary of Care ---
Author Name Unknown Organization [facility] Address [address] [facility] [place] [address] Phone [phone] Care Team Providers Care Field Tech Name Role Phone Unavailable Primary Care Provider Unavailabl e Encounter Details Date Type Department Care Team Description 02/23/2023 Telephone [facility] [address] [place] [address] Pham Mixon CRNP [address] [place] [...] Miscellaneous Notes * Telephone Encounter - Alexia Lynch RN [...] Mixon CRNP [address] [place] [address] Health Maintenance Due Date Last Done Comments [...]
--- OUTSIDE RECORDS SUMMARY | 2023-05-15 21:12 | External Medical Summary | Summary of Care ---
Author Name Unknown Organization [facility] Address [address] [facility] [address] Phone [phone] Care Team Providers Care Resident Physician Name Role Phone Unavailable Primary Care Provider Unavailabl e Reason for Visit * Reason Comments Return Visit Encounter Details Date Type Department Care Team (Late st Contact Info) Description 04/20/2023 2:15 PM EST Office Visit Gynecology/Obstetric s Frances[facility] Valle [address] [place] [address] Pham Mixon CRNP [address] [place] [address] Encounter for supervision of normal first in [...] money to get more. Never true 01/04/2023 [place] Depression Scale Answer Date Recorded [place] Depression Scale Total 6 04/04/2023 The thought [...] position, u/s with next visit. GBS today. Bottle Washer Documentation Provider requested diesel dragline operator. Name of diesel dragline operator: NANCY Steward * Zena Galindo LPN - 04/20/2023 2:15 PM EST 36w5d Pt denies any concerns, GBS today documented in this encounter Plan of Treatment Upcoming Encounters Date Type Department Care Team (Late st Contact Info) Description 05/01/2023 2:15 PM EST Imaging Radiology [facility] [place] [address] 05/01/2023 3:30 PM EST Office Visit Gynecology/Obstetrics [facility] [address] [place] [address] Trisha Garcia PA-C [address] [place] [address] Pending Results Name Type Priority Associated Diagnoses [...]
--- OUTSIDE RECORDS SUMMARY | 2023-05-15 21:12 | External Medical Summary | Summary of Care ---
Author Name Unknown Organization [facility] Address [address] [facility] [place] [address] Phone [phone] Care Team Providers Care Assistant Professor Sculpture Name Role Phone Unavailable Primary Care Provider Unavailabl e Encounter Details Date Type Department Care Team Description 02/23/2023 Telephone [facility] [address] [place] [address] Pham Mixon CRNP [address] [place] [...] not currently taking a supplement. Patient uses [facility]. * Telephone Encounter - Alexia Lynch [...] Mixon CRNP [address] [place] [address] Health Maintenance Due Date Last Done Comments [...]
--- OUTSIDE RECORDS SUMMARY | 2023-05-15 21:12 | External Medical Summary | Summary of Care ---
Author Name Unknown Organization [facility] Address [address] [facility] [place] [address] Phone [phone] Care Team Providers Care Digital Data Analyst Name Role Phone Unavailable Primary Care Provider Unavailabl e Encounter Details Date Type Department Care Team Description 02/23/2023 Telephone [facility] [address] [place] [address] David Mixon CRNP [address] [place] [address] Allergies No known active [...] not currently taking a supplement. Patient uses [facility] pharmacy [facility]. * Telephone Encounter - Alexia Lynch RN [...] Visit Gynecology Obstetrics David Mixon CRNP 132 [facility] [place] [address] Health Maintenance Due Date Last Done Comments [...]
--- OUTSIDE RECORDS SUMMARY | 2023-05-15 21:12 | External Medical Summary | Summary of Care ---
Author Name Unknown Organization [facility] Address [address] [place] [place] [address] Phone [phone] Care Team Providers Care Crook Operator Name Role Phone Unavailable Primary Care Provider Unavailabl e Reason for Visit * Reason Comments Outpatient Testing Encounter Details Date Type Department Care Team Description 03/21/2023 Laboratory Laboratory, [facility] 132 [facility] [place] [address] [facility] [address] Encounter for supervision of normal first in third trimester Allergies No known active allergiesdocumented as [...] Pham Mixon CRNP [address] [place] [address] Pending Results Name Type Priority Associated Diagnoses Date /Time CBC WITH WBC DIFFERENTIAL AND ANEMIA REFLEX WORKUP Lab Routine Encounter for supervision of normal first in third trimester 03/21/2023 8:39 AM EDT ANEMIA CBC Lab Routine Encounter for supervision of normal first in third trimester 03/21/2023 8:39 AM EDT DIFFERENTIAL, AUTOMATED Lab Routine Encounter for supervision of normal first in third trimester 03/21/2023 8:39 AM EDT ANEMIA REFLEX CHEMISTRY HOLD Lab Routine Encounter for supervision of normal first in third trimester 03/21/2023 8:39 AM EDT Health Maintenance Due Date Last [...] supervision of normal first in third trimester Supervision of normal first documented in this encounter
--- OUTSIDE RECORDS SUMMARY | 2023-05-15 21:12 | External Medical Summary ---
Author Name Unknown Address Unknown Organization K01:[place] [place] [address] [place] [address] [place] [place] [address] Laboratory Report Ordering Provider Test Date Status ARLIN HERNANDEZ 02/22/2023 10:22:53 Final Observation Date Value Abnormality Reference (Units ) Status TSH 02/22/2023 10:22:53 4.67 Above high normal 0. 27-4.20 (uIU/mL) Final Performing Location LABORATORY [facility] - [address] [place] [address]
--- OUTSIDE RECORDS SUMMARY | 2023-05-15 21:12 | External Medical Summary | Summary of Care ---
Author Name Unknown Organization [facility] Address [address] [facility] [address] Phone [phone] Care Team Providers Care Glass Technician/Installer Name Role Phone Unavailable Primary Care Provider Unavailabl e Reason for Visit * Reason Comments Return Visit Encounter Details Date Type Department Care Team Description 12/13/2022 Office Visit Gynecology/Obstetrics [facility] [address] [place] [address] Pham Mixon CRNP [address] [place] [address] Encounter for supervision of normal first in second trimester*; Maternal varicella, non-immune; related conditions, unspecified, second trimester Allergies No known active allergiesdocumented as of this encounter (statuses as of 12/13/2022) Medications Medication Sig Dispensed Refills Start Date End Date Status 19 29-1 MG Oral Tablet Chewable Take by mouth. 0 Activ e documented as of this encounter (statuses as of 12/13/2022) Active Problems Problem Noted Date Maternal varicella, non-immune 3 Supervision of normal first Estimated Date of Delivery Comme nts Yes 05/13/2023 Based on last me nstrual period of 08/06/2022 (Exact Date) documented as of this encounter (statuses as of 12/13/2022) Social History Tobacco Use Types Packs/Day Years Used Date Smoking Tobacco: Never Smokeless Tobacco: Never Tobacco Cessation:Counseling Given: Not Answered Alcohol Use Standard Drinks/Week Comments Not Currently 0 (1 standard drink = 0.6 oz pur e alcohol) Food Insecurity Answer Date Recorded Within the past 12 months, y ou worried that your food would run out before you got money to buy more. Never true 09/21/2022 Within the past 12 months, t he food you bought just didn't last and you didn't have money to get more. Never true 09/21/2022 Estimated Date of Delivery Comme nts Yes 05/13/2023 Based on last me nstrual period of 08/06/2022 (Exact Date) Sex Assigned at Date Recorded Female 09/20/2022 8:44 PM E DT Job Start Date Occupation Industry Not on file Not on file Not on file documented as of this encounter Last Filed Vital Signs Vital Sign Reading Time Taken Comments Blood Pressure 122/64 12/13/2022 8:10 AM EDT Pulse - - Temperature - - Respiratory Rate - - Oxygen Saturation - - Inhaled Oxygen Concentration - - Weight 72.7 kg (160 lb 3.2 oz) 12/13/2022 8:10 A M EDT Height 172.7 cm (5' 8") 12/13/2022 8:10 AM EDT Body Mass Index 24.36 12/13/2022 8:10 AM EDT documented in this encounter Progress Notes * NANCY Robles - 12/13/2022 8:24 AM EDT 18w3d Questioning if she can fly to [place] around 34 weeks of . Advised she check with airline regarding how late she can travel internationally, but 34w may not be recommended. No other concerns. Hasn't felt baby move yet. No bleeding, no n/v. Anatomy u/s in 2-4 weeks. NANCY Robles documented in this encounter Nursing Notes * Alexia Lynch RN - 12/13/2022 8:12 AM EDT Patient here for STEPHANIE visit 18w3d No concerns No bleeding/leaking Pended anatomy US documented in this encounter Plan of Treatment Upcoming Encounters Date Type Specialty Care Team Description 01/11/2023 Imaging Radiology 01/11/2023 Office Visit Gynecology Obstetrics Pham Mixon CRNP [address] [place] [address] Scheduled Orders Name Type Priority Associated Diagnoses Orde r Schedule US PREG SINGLE/1ST GEST, 14 WEEKS OR LATER Medical Imaging Routine Encounter for supervision of normal first in second trimester related conditions, unspecified, second trimester Expected: 12/27/2022, Expires: 01/14/2024 Health Maintenance Due Date Last Done Comments [...] Maternal varicella, non-immune Supervision of other high-risk related conditions, unspecified, second trimester documented in this encounter
--- OUTSIDE RECORDS SUMMARY | 2023-05-15 21:12 | External Medical Summary ---
Author Name Unknown Address Unknown Organization K01:[facility]ORY [facility] [place] - [facility] [address] [facility] [address] Laboratory Report Ordering Provider Test Date Status DAVIDARLIN 02/22/2023 10:22:53 Final Observation Date Value Abnormality Reference (Units ) Status Retic, % (auto) 02/22/2023 10:22:53 1.98 Above high normal 0.80-1.90 (%) Final Reticulocytes, Absolute 02/22/2023 10:22:53 72.9 31.3-100.1 (K/uL) Final Reticulocyte fraction, immature 02/22/2023 10:22:53 24.6 Above high normal 2.5-20.6 (%) Final Reticulocyte HGB 02/22/2023 10:22:53 29.7 29.7-37.4 (pg) Final Performing Location LABORATORY [facility] - [facility] [place] [address]
--- OUTSIDE RECORDS SUMMARY | 2023-05-15 21:12 | External Medical Summary ---
Author Name Unknown Address Unknown Organization K01:[place] [facility] [place] [address] [place] [address] Laboratory Report Ordering Provider Test Date Status ARLIN HERNANDEZ 02/22/2023 10:22:53 Final Observation Date Value Abnormality Reference (Units ) Status WBC, Total 02/22/2023 10:22:53 12.71 Above high normal 4 .00-10.80 (K/uL) Final RBC 02/22/2023 10:22:53 3.70 3.85-5.15 (M/uL) Final Hemoglobin 02/22/2023 10:22:53 10.4 Below low normal 12 .0-15.3 (g/dL) Final Anemia reflex testing trigge rs on a HGB < 12.0 for Females and HGB < 13.0 for Males in accordance with the WHO Anemia Guidelines
Anemia reflex testing triggers on a HGB < 12.0 for Females and HGB < 13.0 for Males in accordance with the WHO Anemia Guidelines HCT 02/22/2023 10:22:53 33.8 Below low normal 36. 0-45.2 (%) Final MCV 02/22/2023 10:22:53 91.4 81.5-97.5 (fL) Final MCH 02/22/2023 10:22:53 28.1 27.0-34.0 (pg) Final MCHC 02/22/2023 10:22:53 30.8 32.0-36.0 (g/dL) Final RDW 02/22/2023 10:22:53 13.5 11.5-15.5 (%) Final Platelets 02/22/2023 10:22:53 253 140-400 (K /uL) Final MPV 02/22/2023 10:22:53 11.0 6.6-11.1 ( fL) Final Nucleated erythrocytes/100 leukocytes [Ratio] in Blood by Automated count 02/22/2023 10:22:53 0 <=0 (/100 WBCs) Final Performing Location [place] [place] [address] [facility] [address]
--- OUTSIDE RECORDS SUMMARY | 2023-05-15 21:12 | External Medical Summary ---
Author Name Unknown Address Unknown Organization K01:LABORATORY [facility] [place] - [address] [place] [address] Laboratory Report Ordering Provider Test Date Status ARLIN HERNANDEZ 02/22/2023 10:22:53 Final Observation Date Value Abnormality Reference (Units ) Status Vitamin B12 02/22/2023 10:22:53 760 485-4345 (pg/mL) Final Performing Location LABORATORY [facility] - [address] [place] [address]
--- OUTSIDE RECORDS SUMMARY | 2023-05-15 21:12 | External Medical Summary ---
Author Name Unknown Address Unknown Organization K01:LABORATORY [facility] [place] - [address] [place] [address] Laboratory Report Ordering Provider Test Date Status CELINA HERNANDEZSOSA 02/22/2023 10:22:53 Final Observation Date Value Abnormality Reference (Units ) Status Iron 02/22/2023 10:22:53 62 33-151 (ug/dL) Final Iron-binding capacity 02/22/2023 10:22:53 508 Above high normal 250-425 (ug/dL) Final Transferrin Sat % 02/22/2023 10:22:53 12 Below low normal 15-55 (%) Final Performing Location LABORATORY [facility] - [address] [place] [address]
--- OUTSIDE RECORDS SUMMARY | 2023-05-15 21:12 | External Medical Summary ---
Author Name Unknown Address Unknown Organization K01:LABORATORY [facility] [place] - [address] [place] [id number] Laboratory Report Ordering Provider Test Date Status ARLIN HERNANDEZ 03/21/2023 08:39:44 Final Observation Date Value Abnormality Reference (Units ) Status WBC, Total 03/21/2023 08:39:44 12.37 Above high normal 4 .00-10.80 (K/uL) Final RBC 03/21/2023 08:39:44 3.97 3.85-5.15 (M/uL) Final Hemoglobin 03/21/2023 08:39:44 11.4 Below low normal 12 .0-15.3 (g/dL) Final Anemia reflex testing trigge rs on a HGB < 12.0 for Females and HGB < 13.0 for Males in accordance with the WHO Anemia Guidelines
Anemia reflex testing triggers on a HGB < 12.0 for Females and HGB < 13.0 for Males in accordance with the WHO Anemia Guidelines HCT 03/21/2023 08:39:44 35.7 Below low normal 36. 0-45.2 (%) Final MCV 03/21/2023 08:39:44 89.9 81.5-97.5 (fL) Final MCH 03/21/2023 08:39:44 28.7 27.0-34.0 (pg) Final MCHC 03/21/2023 08:39:44 31.9 32.0-36.0 (g/dL) Final RDW 03/21/2023 08:39:44 14.9 11.5-15.5 (%) Final Platelets 03/21/2023 08:39:44 259 140-400 (K /uL) Final MPV 03/21/2023 08:39:44 11.1 6.6-11.1 ( fL) Final Nucleated erythrocytes/100 leukocytes [Ratio] in Blood by Automated count 03/21/2023 08:39:44 0 <=0 (/100 WBCs) Final Performing Location LABORATORY [facility] [place] - [address] [facility] [address]
--- OUTSIDE RECORDS SUMMARY | 2023-05-15 21:12 | External Medical Summary ---
Author Name Unknown Address Unknown Organization K01:LABORATORY [facility] [place] - [address] [facility] [address] [facility] [address] Laboratory Report Ordering Provider Test Date Status ARLIN HERNANDEZ 04/20/2023 14:35:11 Final Observation Date Value Abnormality Reference (Units ) Status Streptococcus agalactiae DNA [Presence] in Specimen by WILL with probe detection 04/20/2023 14:35:11 Negative Negative Final No Group B Streptococcus det ected by culture-enhanced PCR (amplified probe).
The collection of vaginal/rectal swab specimen combinations (FDA approved specimen type) is optimal for the detection of Group B Streptococcus. Single source collection (vaginal only or rectal only) or alternate specimen sources may lead to false negative results. Performing Location LABORATORY [facility] [place] - [address] [facility] [place] [address]
--- OUTSIDE RECORDS SUMMARY | 2023-05-15 21:12 | External Medical Summary | Summary of Care ---
Author Name Unknown Organization [facility] Address [address] [facility] [address] Phone [phone] Care Team Providers Care Associate Merchandiser Name Role Phone Unavailable Primary Care Provider Unavailabl e Reason for Visit * Reason Onset Date Comments Forms Request 03/07/2023 Encounter Details Date Type Department Care Team Description 03/07/2023 Telephone Gynecology/Obstetrics [facility] [address] [place] [address] Pham Mixon CRNP [address] [place] [phone] Forms Request Allergies No known active allergiesdocumented as of this encounter (statuses as of 03/08/2023) Medications Medication Sig Dispensed Refills Start Date End Date Status 19 29-1 MG Oral Tablet Chewable Take by mouth. 0 Active Iron-Vitamin C 65-125 MG Oral Tablet (Vitron C)Indications:Antepart um anemia complicating Take 1 Tablet by mouth 2 times a day. 60 Tablet 3 02/27/2023 Active documented as of this encounter (statuses as of 03/08/2023) Active Problems Problem Noted Date Antepartum anemia complicating 02/23/2023 Overview: Declines iron infusions. Agreeable to oral iron Maternal varicella, non-immune Supervision of normal first Estimated Date of Delivery Comme nts Yes 05/13/2023 Based on last me nstrual period of 08/06/2022 (Exact Date) documented as of this encounter (statuses as of 03/08/2023) Immunizations Name Administration Dates Next Due TDAP [...] encounter Miscellaneous Notes * Telephone Encounter - SOY Gann - 03/08/2023 9:09 AM EDT Forms signed, faxed and scanned to pt's chart. In triage for picker tender. * Telephone Encounter - SOY Gann - 03/07/2023 12:52 PM EDT FMLA forms given to nurse at office. Forms completed and placed on Pham's desk for signature. documented in this encounter Plan of Treatment Upcoming Encounters Date Type Specialty Care Team Description 03/21/2023 Office Visit Gynecology Obstetrics Pham Mixon CRNP [address] [place] [address] Health Maintenance Due Date Last Done Comments [...]
--- OUTSIDE RECORDS SUMMARY | 2023-05-15 21:12 | External Medical Summary | Summary of Care ---
Author Name Unknown Organization [facility] Address [address] [facility] [place] [address] Phone [phone] Care Team Providers Care Security Software Engineer Name Role Phone Unavailable Primary Care Provider Unavailabl e Reason for Visit * Reason Comments Return Visit Encounter Details Date Type Department Care Team Description 01/11/2023 Office Visit Gynecology/Obstetrics [facility] [address] [place] [address] Pham Mixon CRNP [address] [place] [address] Encounter for supervision of normal first in second trimester*; Maternal varicella, non-immune Allergies No known active allergiesdocumented as of this encounter (statuses as of 01/11/2023) Medications Medication Sig Dispensed Refills Start Date End Date Status 19 29-1 MG Oral Tablet Chewable Take by mouth. 0 Activ e documented as of this encounter (statuses as of 01/11/2023) Active Problems Problem Noted Date Maternal varicella, non-immune 3 Supervision of normal first Estimated Date of Delivery Comme nts Yes 05/13/2023 Based on last me nstrual period of 08/06/2022 (Exact Date) documented as of this encounter (statuses as of 01/11/2023) Social History Tobacco Use Types Packs/Day Years [...] Sign Reading Time Taken Comments Blood Pressure 108/62 01/11/2023 10:17 AM EDT Pulse - - Temperature - - Respiratory Rate - - Oxygen Saturation - - Inhaled Oxygen Concentration - - Weight 75.5 kg (166 lb 6.4 oz) 01/11/2023 10:17 AM EDT Height 172.7 cm (5' 8") 01/11/2023 10:17 AM EDT Body Mass Index 25.3 01/11/2023 10:17 AM EDT documented in this encounter Progress Notes * NANCY Robles - 01/11/2023 10:36 AM EDT 22w4d No concerns. Feeling some FM. No bleeding or contractions. Anatomy u/s today, all WNL. Has anterior placenta. Asked for info on consultants, [employer] brochure given. NANCY Robles documented in this encounter Nursing Notes * CHARITY Brown - 01/11/2023 10:22 AM EDT 22w4d Pt denies any concerns. documented in this encounter Plan of Treatment Upcoming Encounters Date Type Specialty Care Team Description 02/07/2023 Office Visit Gynecology Obstetrics Pham Mixon CRNP [address] [facility] [place] [address] Health Maintenance Due Date Last Done Comments [...]
[2023-05-16] MEDS: LACTATED RINGER'S 1,000 ML IV PRN ×4 (04:59→20:56)
--- NOTE | 2023-05-16 07:32 | Labor Progress Brief Note ---
Date of Service May 16, 2023 Assessment & Plan Admission and Anticipated Discharge Date Admission Date: May 15, 2023 Physical Exam Genitourinary: Manual OB Exam: + cervical dilation 3 cm and 4 cm, + cervical effacement 80%, + station -2 and + amniotic fluid clear OB Exam Monitor Tracing: + external FHT monitor used, + external uterine monitor used and + category I ruptured forebag with Amni-hook Results & Data Vital Signs (Past 12 Hours) Vital Signs Temp Pulse Resp BP 05/16/23 07:01 78 128/74 05/16/23 06:02 83 156/78 H 05/16/23 05:30 36.6 C 05/16/23 05:00 89 124/80 05/16/23 04:01 85 128/79 05/16/23 03:01 82 124/73 05/16/23 03:00 18 05/16/23 03:00 36.8 C 18 05/16/23 02:01 71 127/75 05/16/23 01:00 36.8 C 77 145/87 H 05/16/23 00:01 85 139/81 05/15/23 23:01 90 05/15/23 23:01 146/83 H 05/15/23 23:00 16 05/15/23 23:00 37.0 C 16 05/15/23 22:09 103 H 05/15/23 22:09 140/93 05/15/23 21:01 88 05/15/23 21:01 127/78 05/15/23 21:00 37.1 C
[2023-05-16] MEDS ORDERED: fentaNYL citrate PF 100 MCG/2 ML VIAL ONE ×2 (09:08→21:51)
[2023-05-16] MEDS ORDERED: ePHEDrine sulfate 50 MG/ML AMP ONE (09:08)
[2023-05-16] MEDS ORDERED: fentANYL 2 MCG/ML BUPIVacaine 0.125%-NSS 100ML BAG ONE (09:09)
[2023-05-16] MEDS ORDERED: SODIUM CHLORIDE 0.9% PF INJ 10 ML VIAL ONE (09:09)
[2023-05-16] MEDS ORDERED: BUPIVACAINE 0.25% PF 30 ML VIAL ONE (09:09)
[2023-05-16] MEDS ORDERED: LIDOCAINE 2%/EPINEPHRINE 1:200,000 20 ML PF ONE (09:09)
--- NOTE | 2023-05-16 09:20 | Obstetrical Progress Note ---
Date of Service May 16, 2023 Assessment & Plan Admission and Anticipated Discharge Date Admission Date: May 15, 2023 Subjective I have reviewed patient's records and blood plan. Patient is seen, she was sitting on the bed fall and moaning in pain. Oxytocin is at 13 international unit/min, heart rate category 1. Patient desires epidural for pain, declines vaginal exam. Continue to monitor closely. Results & Data Vital Signs (Past 12 Hours) Vital Signs Temp Pulse Resp BP 05/16/23 08:57 83 124/66 05/16/23 08:00 81 126/71 05/16/23 07:16 36.7 C 18 05/16/23 07:01 78 128/74 05/16/23 06:02 83 156/78 H 05/16/23 05:30 36.6 C 05/16/23 05:00 89 124/80 05/16/23 04:01 85 128/79 05/16/23 03:01 82 124/73 05/16/23 03:00 18 05/16/23 03:00 36.8 C 18 05/16/23 02:01 71 127/75 05/16/23 01:00 36.8 C 77 145/87 H 05/16/23 00:01 85 139/81 05/15/23 23:01 90 05/15/23 23:01 146/83 H 05/15/23 23:00 16 05/15/23 23:00 37.0 C 16 05/15/23 22:09 103 H 05/15/23 22:09 140/93
[2023-05-16] MEDS: ceFAZolin 2000MG 2,000 MG/15 ML SYR IV SCH ×2 (09:37→17:14)
[2023-05-16] MEDS ORDERED: fentANYL 2 MCG/ML BUPIVacaine 0.125%-NSS 100ML BAG EPI PRN (10:00)
[2023-05-16] MEDS ORDERED: NALBUPHINE HCL 5 MG in SYRINGE 0 ML IV PRN ×2 (10:00→22:21)
[2023-05-16] MEDS ORDERED: LIDOCAINE 2%/EPINEPHRINE 1:200,000 20 ML PF EPI STA (10:00)
[2023-05-16] MEDS ORDERED: ePHEDrine sulfate 50 MG/ML AMP IV PRN ×2 (10:00→22:21)
[2023-05-16] MEDS ORDERED: LIDOCAINE 2% MPF LOCAL 5 ML VIAL EPI PRN (10:00)
[2023-05-16] MEDS ORDERED: diphenhydrAMINE 50 MG/ML VIAL IV PRN ×2 (10:00→22:21)
[2023-05-16] MEDS ORDERED: NALOXONE HCL 0.4 MG/1 ML VIAL/CARP IV PRN ×2 (10:00→22:21)
[2023-05-16] MEDS ORDERED: SODIUM CHLORIDE 0.9% PF INJ 10 ML VIAL EPI STA (10:00)
[2023-05-16] MEDS ORDERED: SODIUM CHLORIDE 0.9% PF INJ 10 ML VIAL EPI PRN (10:00)
[2023-05-16] MEDS ORDERED: BUPIVACAINE 0.25% PF 30 ML VIAL EPI PRN (10:00)
[2023-05-16] MEDS ORDERED: fentaNYL citrate PF 100 MCG/2 ML VIAL EPI STA (10:00)
[2023-05-16] MEDS ORDERED: fentaNYL citrate PF 100 MCG/2 ML VIAL EPI PRN (10:00)
[2023-05-16] MEDS ORDERED: BUPIVACAINE 0.25% PF 30 ML VIAL EPI STA (10:00)
[2023-05-16] MEDS ORDERED: ROPIVACAINE 0.5% PF 5 MG/ML 20 ML VIAL EPI PRN (10:00)
[2023-05-16] MEDS ORDERED: ONDANSETRON INJ 2 MG/ML 2 ML VIAL IV PRN ×2 (10:00→22:21)
[2023-05-16] MEDS ORDERED: NALOXONE HCL 1 MG in SODIUM CHLORIDE 0.9% 1,000 ML IV PRN ×2 (10:00→22:21)
--- NOTE | 2023-05-16 10:00 | Anesthesiology Consultation ---
Date of Service May 16, 2023 Assessment & Plan Chart Review Chart Review: Patient NOT seen in Pre Admission Testing and Acceptable Risk for Labor Epidural Consults Requested none ASA ASA2 Proposed Anesthesia Anesthesia Type: Labor Epidural Risk / Benefits Reviewed With: PT / POA / Parent / Guardian, Accepts Plan and Informed Consent Obtained History Height/Weight Height: 5 ft 8 in Weight: 90.265 kg Allergies Allergy/AdvReac Type Severity Reaction Status Date / Time No Known Allergies Allergy Verified 05/15/23 15:31 Medications Home Medications Medication Instructions Recorded Confirmed Last Taken iron,carbonyl 65 mg-vitamin C 125 1 tab PO BID 05/15/23 05/15/23 05/14/23 mg tablet,delayed release (Vitron-C) vits no.124-ferrous fum 1 tab PO DAILY 05/15/23 05/15/23 05/14/23 27 mg iron-folic acid 800 mcg tablet ( Vitamin) Active Medications Generic Name Dose Route Start Last Admin Trade Name Freq PRN Reason Stop Dose Admin Lactated Ringer's 1,000 mls @ 125 mls/hr 05/15/23 12:52 05/16/23 09:33 Lr IV 05/17/23 12:51 999 mls/hr .Q8H PRN Administration L&D Protocol Protocol Oxytocin 30 units in 500 mls @ 13 mls/hr 05/15/23 20:30 05/16/23 07:04 Pitocin 30 Units/Nss IV 05/17/23 20:29 0.78 units/hr .Q24H PRN 13 mls/hr Labor Induction/Augmentation Titration Protocol 0.78 UNITS/HR Cefazolin Sodium 2,000 mg in 15 mls @ 3.75 mls/min 05/16/23 09:00 05/16/23 09:37 Ancef 2000mg IV 05/26/23 08:59 3.75 mls/min Q8H AKIRA Administration Misoprostol 50 mcg 05/15/23 14:30 05/15/23 14:35 Misoprostol 50 Mcg Tab PO 06/14/23 14:29 50 mcg Q4H AKIRA Administration Past Medical History Medical History (Updated 05/15/23 @ 15:47 by Tracey Thompson RN) No known health problems Exercise / Class Metabolic Activity II 4-5 Yardwork/Stairs/Walk up hill Past Family History Family History (Updated 05/15/23 @ 15:34 by Tracey Thompson RN) Mother Hypertension Asthma Father Hypertension Uncle Diabetes Past Surgical History Surgical History (Updated 05/15/23 @ 15:47 by Tracey Thompson RN) No history of previous surgery Past Anesthesia History No Hx of Anesthesia Complications and No Family Hx of Anesthesia Complications History of PONV No Hx of PONV and No Hx of Motion Sickness Social History Smoking Status: Never smoker Hx Alcohol Use: No Hx Substance Use: No Physical Exam Vital Signs Last Vital Signs Temp 36.7 C 05/16/23 07:16 Pulse 95 H 05/16/23 09:57 Resp 18 05/16/23 07:16 BP 110/68 05/16/23 09:55 Pulse Ox 99 05/16/23 09:57 ENMT Mouth: no dentition abnormality Thyromental Distance: > or= 3.5 Finger Breadths Mallampati Class: II Neck normal visual inspection Respiratory normal respiratory effort Auscultation: lungs clear to auscultation bilaterally Cardiovascular Rate/Rhythm: regular rate and regular rhythm Psychiatric Orientation: alert Testing Laboratory Results 05/15/23 13:07 05/15/23 13:07
[2023-05-16] MEDS: miSOPROStoL 50 MCG TAB PO SCH (12:28)
--- NOTE | 2023-05-16 14:49 | Obstetrical Progress Note ---
Date of Service May 16, 2023 Assessment & Plan Admission and Anticipated Discharge Date Admission Date: May 15, 2023 Subjective Patient is revaluated. She had epidural and comfortable. She slept and rested Non pain nor pressure VE; 8-9/ 90%/0 to +1 with contraction FHR categ I [place] ctxs q 2-3 min, Oxytocin is at 15 miu/min on IV AB for prolonged ROM Continue to monitor closely Results & Data Vital Signs (Past 12 Hours) Vital Signs Temp Pulse Resp BP Pulse Ox 05/16/23 14:42 108 H 100 05/16/23 14:37 82 100 05/16/23 14:34 88 138/75 05/16/23 14:32 82 100 05/16/23 14:27 83 100 05/16/23 14:22 85 100 05/16/23 14:19 88 127/73 05/16/23 14:17 87 100 05/16/23 14:12 83 100 05/16/23 14:07 82 100 05/16/23 14:05 18 05/16/23 14:05 37.4 C 18 05/16/23 14:04 86 130/76 05/16/23 14:02 94 H 99 05/16/23 13:57 96 H 99 05/16/23 13:52 74 100 05/16/23 13:49 74 125/67 05/16/23 13:47 92 H 100 05/16/23 13:45 16 05/16/23 13:45 16 05/16/23 13:42 69 99 05/16/23 13:37 70 98 05/16/23 13:33 80 133/59 L 05/16/23 13:32 68 96 05/16/23 13:27 67 97 05/16/23 13:22 67 99 05/16/23 13:19 76 141/60 H 05/16/23 13:17 73 95 05/16/23 13:12 70 97 05/16/23 13:07 67 98 05/16/23 13:03 72 130/61 05/16/23 13:02 68 97 05/16/23 12:57 66 99 05/16/23 12:52 64 99 05/16/23 12:50 85 123/58 L 05/16/23 12:47 67 99 05/16/23 12:42 75 100 05/16/23 12:37 71 100 05/16/23 12:34 70 125/69 05/16/23 12:32 87 100 05/16/23 12:31 18 05/16/23 12:31 37.2 C 18 05/16/23 12:30 16 05/16/23 12:30 16 05/16/23 12:27 90 100 05/16/23 12:22 73 100 05/16/23 12:19 72 109/58 L 05/16/23 12:17 71 100 05/16/23 12:12 71 100 05/16/23 12:07 82 100 05/16/23 12:04 74 108/60 05/16/23 12:02 75 100 05/16/23 12:00 16 05/16/23 12:00 16 05/16/23 11:57 75 100 05/16/23 11:52 73 100 05/16/23 11:49 75 110/56 L 05/16/23 11:47 73 100 05/16/23 11:42 72 100 05/16/23 11:37 73 100 05/16/23 11:33 111/67 05/16/23 11:32 79 100 05/16/23 11:27 78 100 05/16/23 11:22 72 100 05/16/23 11:19 74 107/54 L 05/16/23 11:17 73 100 05/16/23 11:12 76 100 05/16/23 11:07 81 100 05/16/23 11:04 73 107/52 L 05/16/23 11:02 82 100 05/16/23 11:00 18 05/16/23 11:00 18 05/16/23 10:57 78 100 05/16/23 10:52 77 100 05/16/23 10:49 72 101/52 L 05/16/23 10:47 75 100 05/16/23 10:42 76 100 05/16/23 10:37 79 100 05/16/23 10:32 75 100 05/16/23 10:27 77 100 05/16/23 10:22 75 100 05/16/23 10:17 77 100 05/16/23 10:12 78 100 05/16/23 10:07 80 100 05/16/23 10:03 89 128/80 05/16/23 10:02 88 100 05/16/23 10:01 84 131/71 05/16/23 10:00 86 130/63 05/16/23 09:57 95 H 99 05/16/23 09:55 98 H 110/68 05/16/23 09:52 90 100 05/16/23 09:46 95 H 100 05/16/23 09:42 88 132/72 05/16/23 09:41 109 H 100 05/16/23 09:36 84 100 05/16/23 09:31 83 100 05/16/23 09:30 18 05/16/23 09:30 18 05/16/23 09:26 86 100 05/16/23 09:21 92 H 100 05/16/23 08:57 83 124/66 05/16/23 08:00 81 126/71 05/16/23 07:16 36.7 C 18 05/16/23 07:01 78 128/74 05/16/23 06:02 83 156/78 H 05/16/23 05:30 36.6 C 05/16/23 05:00 89 124/80 05/16/23 04:01 85 128/79 05/16/23 03:01 82 124/73 05/16/23 03:00 18 05/16/23 03:00 36.8 C 18
--- NOTE | 2023-05-16 16:14 | Obstetrical Progress Note ---
Date of Service May 16, 2023 Assessment & Plan Admission and Anticipated Discharge Date Admission Date: May 15, 2023 Subjective Patient feels pressure VE; rim of ant lip, head is at +2 FHR CATEG I Continue to monitor Results & Data Vital Signs (Past 12 Hours) Vital Signs Temp Pulse Resp BP Pulse Ox 05/16/23 16:07 88 100 05/16/23 16:02 110 H 100 05/16/23 15:57 89 100 05/16/23 15:52 94 H 100 05/16/23 15:49 85 126/59 L 05/16/23 15:47 98 H 100 05/16/23 15:42 89 100 05/16/23 15:37 86 100 05/16/23 15:33 94 H 114/54 L 05/16/23 15:32 108 H 100 05/16/23 15:30 18 05/16/23 15:30 18 05/16/23 15:27 95 H 100 05/16/23 15:22 95 H 100 05/16/23 15:20 93 H 116/50 L 05/16/23 15:17 101 H 100 05/16/23 15:12 99 H 100 05/16/23 15:07 90 100 05/16/23 15:04 90 119/59 L 05/16/23 15:02 96 H 100 05/16/23 15:00 18 05/16/23 15:00 18 05/16/23 14:57 85 100 05/16/23 14:52 93 H 100 05/16/23 14:49 88 128/57 L 05/16/23 14:47 97 H 100 05/16/23 14:42 108 H 100 05/16/23 14:37 82 100 05/16/23 14:34 88 138/75 05/16/23 14:32 82 100 05/16/23 14:30 18 05/16/23 14:30 18 05/16/23 14:27 83 100 05/16/23 14:22 85 100 05/16/23 14:19 88 127/73 05/16/23 14:17 87 100 05/16/23 14:12 83 100 05/16/23 14:07 82 100 05/16/23 14:05 18 05/16/23 14:05 37.4 C 18 05/16/23 14:04 86 130/76 05/16/23 14:02 94 H 99 05/16/23 13:57 96 H 99 05/16/23 13:52 74 100 05/16/23 13:49 74 125/67 05/16/23 13:47 92 H 100 05/16/23 13:45 16 05/16/23 13:45 16 05/16/23 13:42 69 99 05/16/23 13:37 70 98 05/16/23 13:33 80 133/59 L 05/16/23 13:32 68 96 05/16/23 13:27 67 97 05/16/23 13:22 67 99 05/16/23 13:19 76 141/60 H 05/16/23 13:17 73 95 05/16/23 13:12 70 97 05/16/23 13:07 67 98 05/16/23 13:03 72 130/61 05/16/23 13:02 68 97 05/16/23 12:57 66 99 05/16/23 12:52 64 99 05/16/23 12:50 85 123/58 L 05/16/23 12:47 67 99 05/16/23 12:42 75 100 05/16/23 12:37 71 100 05/16/23 12:34 70 125/69 05/16/23 12:32 87 100 05/16/23 12:31 18 05/16/23 12:31 37.2 C 18 05/16/23 12:30 16 05/16/23 12:30 16 05/16/23 12:27 90 100 05/16/23 12:22 73 100 05/16/23 12:19 72 109/58 L 05/16/23 12:17 71 100 05/16/23 12:12 71 100 05/16/23 12:07 82 100 05/16/23 12:04 74 108/60 05/16/23 12:02 75 100 05/16/23 12:00 16 05/16/23 12:00 16 05/16/23 11:57 75 100 05/16/23 11:52 73 100 05/16/23 11:49 75 110/56 L 05/16/23 11:47 73 100 05/16/23 11:42 72 100 05/16/23 11:37 73 100 05/16/23 11:33 111/67 05/16/23 11:32 79 100 05/16/23 11:27 78 100 05/16/23 11:22 72 100 05/16/23 11:19 74 107/54 L 05/16/23 11:17 73 100 05/16/23 11:12 76 100 05/16/23 11:07 81 100 05/16/23 11:04 73 107/52 L 05/16/23 11:02 82 100 05/16/23 11:00 18 05/16/23 11:00 18 05/16/23 10:57 78 100 05/16/23 10:52 77 100 05/16/23 10:49 72 101/52 L 05/16/23 10:47 75 100 05/16/23 10:42 76 100 05/16/23 10:37 79 100 05/16/23 10:32 75 100 05/16/23 10:27 77 100 05/16/23 10:22 75 100 05/16/23 10:17 77 100 05/16/23 10:12 78 100 05/16/23 10:07 80 100 05/16/23 10:03 89 128/80 05/16/23 10:02 88 100 05/16/23 10:01 84 131/71 05/16/23 10:00 86 130/63 05/16/23 09:57 95 H 99 05/16/23 09:55 98 H 110/68 05/16/23 09:52 90 100 05/16/23 09:46 95 H 100 05/16/23 09:42 88 132/72 05/16/23 09:41 109 H 100 05/16/23 09:36 84 100 05/16/23 09:31 83 100 05/16/23 09:30 18 05/16/23 09:30 18 05/16/23 09:26 86 100 05/16/23 09:21 92 H 100 05/16/23 08:57 83 124/66 05/16/23 08:00 81 126/71 05/16/23 07:16 36.7 C 18 05/16/23 07:01 78 128/74 05/16/23 06:02 83 156/78 H 05/16/23 05:30 36.6 C 05/16/23 05:00 89 124/80
--- NOTE | 2023-05-16 17:26 | Obstetrical Progress Note ---
Date of Service May 16, 2023 Assessment & Plan Admission and Anticipated Discharge Date Admission Date: May 15, 2023 Subjective Patient was found to be fully dilated and feeling pressure, she has been pushing for about 15 minutes Head is at +2 FHR categ I Ctxs q2-3 min Continue to monitor closely Results & Data Vital Signs (Past 12 Hours) Vital Signs Temp Pulse Resp BP Pulse Ox 05/16/23 17:22 122 H 100 05/16/23 17:17 104 H 100 05/16/23 17:12 117 H 100 05/16/23 17:07 85 100 05/16/23 17:02 101 H 100 05/16/23 16:57 109 H 100 05/16/23 16:52 85 100 05/16/23 16:49 77 128/65 05/16/23 16:47 80 100 05/16/23 16:42 82 100 05/16/23 16:37 93 H 100 05/16/23 16:32 82 100 05/16/23 16:27 89 100 05/16/23 16:22 83 100 05/16/23 16:17 77 100 05/16/23 16:12 89 100 05/16/23 16:07 88 100 05/16/23 16:04 18 05/16/23 16:04 37.0 C 18 05/16/23 16:02 110 H 100 05/16/23 15:57 89 100 05/16/23 15:52 94 H 100 05/16/23 15:49 85 126/59 L 05/16/23 15:47 98 H 100 05/16/23 15:42 89 100 05/16/23 15:37 86 100 05/16/23 15:33 94 H 114/54 L 05/16/23 15:32 108 H 100 05/16/23 15:30 18 05/16/23 15:30 18 05/16/23 15:27 95 H 100 05/16/23 15:22 95 H 100 05/16/23 15:20 93 H 116/50 L 05/16/23 15:17 101 H 100 05/16/23 15:12 99 H 100 05/16/23 15:07 90 100 05/16/23 15:04 90 119/59 L 05/16/23 15:02 96 H 100 05/16/23 15:00 18 05/16/23 15:00 18 05/16/23 14:57 85 100 05/16/23 14:52 93 H 100 05/16/23 14:49 88 128/57 L 05/16/23 14:47 97 H 100 05/16/23 14:42 108 H 100 05/16/23 14:37 82 100 05/16/23 14:34 88 138/75 05/16/23 14:32 82 100 05/16/23 14:30 18 05/16/23 14:30 18 05/16/23 14:27 83 100 05/16/23 14:22 85 100 05/16/23 14:19 88 127/73 05/16/23 14:17 87 100 05/16/23 14:12 83 100 05/16/23 14:07 82 100 05/16/23 14:05 18 05/16/23 14:05 37.4 C 18 05/16/23 14:04 86 130/76 05/16/23 14:02 94 H 99 05/16/23 13:57 96 H 99 05/16/23 13:52 74 100 05/16/23 13:49 74 125/67 05/16/23 13:47 92 H 100 05/16/23 13:45 16 05/16/23 13:45 16 05/16/23 13:42 69 99 05/16/23 13:37 70 98 05/16/23 13:33 80 133/59 L 05/16/23 13:32 68 96 05/16/23 13:27 67 97 05/16/23 13:22 67 99 05/16/23 13:19 76 141/60 H 05/16/23 13:17 73 95 05/16/23 13:12 70 97 05/16/23 13:07 67 98 05/16/23 13:03 72 130/61 05/16/23 13:02 68 97 05/16/23 12:57 66 99 05/16/23 12:52 64 99 05/16/23 12:50 85 123/58 L 05/16/23 12:47 67 99 05/16/23 12:42 75 100 05/16/23 12:37 71 100 05/16/23 12:34 70 125/69 05/16/23 12:32 87 100 05/16/23 12:31 18 12/12/23 12:31 37.2 C 18 05/16/23 12:30 16 05/16/23 12:30 16 05/16/23 12:27 90 100 05/16/23 12:22 73 100 05/16/23 12:19 72 109/58 L 05/16/23 12:17 71 100 05/16/23 12:12 71 100 05/16/23 12:07 82 100 05/16/23 12:04 74 108/60 05/16/23 12:02 75 100 05/16/23 12:00 16 05/16/23 12:00 16 05/16/23 11:57 75 100 05/16/23 11:52 73 100 05/16/23 11:49 75 110/56 L 05/16/23 11:47 73 100 05/16/23 11:42 72 100 05/16/23 11:37 73 100 05/16/23 11:33 111/67 05/16/23 11:32 79 100 05/16/23 11:27 78 100 05/16/23 11:22 72 100 05/16/23 11:19 74 107/54 L 05/16/23 11:17 73 100 05/16/23 11:12 76 100 05/16/23 11:07 81 100 05/16/23 11:04 73 107/52 L 05/16/23 11:02 82 100 05/16/23 11:00 18 05/16/23 11:00 18 05/16/23 10:57 78 100 05/16/23 10:52 77 100 05/16/23 10:49 72 101/52 L 05/16/23 10:47 75 100 05/16/23 10:42 76 100 05/16/23 10:37 79 100 05/16/23 10:32 75 100 05/16/23 10:27 77 100 05/16/23 10:22 75 100 05/16/23 10:17 77 100 05/16/23 10:12 78 100 05/16/23 10:07 80 100 05/16/23 10:03 89 128/80 05/16/23 10:02 88 100 05/16/23 10:01 84 131/71 05/16/23 10:00 86 130/63 05/16/23 09:57 95 H 99 05/16/23 09:55 98 H 110/68 05/16/23 09:52 90 100 05/16/23 09:46 95 H 100 05/16/23 09:42 88 132/72 05/16/23 09:41 109 H 100 05/16/23 09:36 84 100 05/16/23 09:31 83 100 05/16/23 09:30 18 05/16/23 09:30 18 05/16/23 09:26 86 100 05/16/23 09:21 92 H 100 05/16/23 08:57 83 124/66 05/16/23 08:00 81 126/71 05/16/23 07:16 36.7 C 18 05/16/23 07:01 78 128/74 05/16/23 06:02 83 156/78 H 05/16/23 05:30 36.6 C
--- NOTE | 2023-05-16 18:50 | Obstetrical Progress Note ---
Date of Service May 16, 2023 Assessment & Plan Admission and Anticipated Discharge Date Admission Date: May 15, 2023 Subjective Patient was rested for about 50 minutes and started to push again FHR baseline increased to 170's, still has good variability and no decels Maternal temp 38.1 Had been on Cefazolin and Clindamycin is ordered. Patient is pushing again with episodes of nausea. Continue to monitor closely. Results & Data Vital Signs (Past 12 Hours) Vital Signs Temp Pulse Resp BP Pulse Ox 05/16/23 18:42 93 H 100 05/16/23 18:37 106 H 100 05/16/23 18:35 105 H 175/71 H 05/16/23 18:32 115 H 100 05/16/23 18:27 102 H 100 05/16/23 18:25 18 05/16/23 18:25 38.2 C H 18 05/16/23 18:22 112 H 100 05/16/23 18:19 111 H 149/65 H 92 05/16/23 18:17 106 H 99 05/16/23 18:12 112 H 100 05/16/23 18:07 116 H 100 05/16/23 18:05 122 H 142/77 H 05/16/23 18:02 119 H 98 05/16/23 17:57 130 H 99 05/16/23 17:52 102 H 100 05/16/23 17:49 98 H 163/83 H 05/16/23 17:47 107 H 96 05/16/23 17:42 107 H 100 05/16/23 17:37 91 H 100 05/16/23 17:32 91 H 100 05/16/23 17:27 105 H 100 05/16/23 17:22 122 H 100 05/16/23 17:20 38 C H 20 05/16/23 17:17 104 H 100 05/16/23 17:12 117 H 100 05/16/23 17:07 85 100 05/16/23 17:02 101 H 100 05/16/23 16:57 109 H 100 05/16/23 16:52 85 100 05/16/23 16:49 77 128/65 05/16/23 16:47 80 100 05/16/23 16:42 82 100 05/16/23 16:37 93 H 100 05/16/23 16:32 82 100 05/16/23 16:27 89 100 05/16/23 16:22 83 100 05/16/23 16:17 77 100 05/16/23 16:12 89 100 05/16/23 16:07 88 100 05/16/23 16:04 18 05/16/23 16:04 37.0 C 18 05/16/23 16:02 110 H 100 05/16/23 15:57 89 100 05/16/23 15:52 94 H 100 05/16/23 15:49 85 126/59 L 05/16/23 15:47 98 H 100 05/16/23 15:42 89 100 05/16/23 15:37 86 100 05/16/23 15:33 94 H 114/54 L 05/16/23 15:32 108 H 100 05/16/23 15:30 18 05/16/23 15:30 18 05/16/23 15:27 95 H 100 05/16/23 15:22 95 H 100 05/16/23 15:20 93 H 116/50 L 05/16/23 15:17 101 H 100 05/16/23 15:12 99 H 100 05/16/23 15:07 90 100 05/16/23 15:04 90 119/59 L 05/16/23 15:02 96 H 100 05/16/23 15:00 18 05/16/23 15:00 18 05/16/23 14:57 85 100 05/16/23 14:52 93 H 100 05/16/23 14:49 88 128/57 L 05/16/23 14:47 97 H 100 05/16/23 14:42 108 H 100 05/16/23 14:37 82 100 05/16/23 14:34 88 138/75 05/16/23 14:32 82 100 05/16/23 14:30 18 05/16/23 14:30 18 05/16/23 14:27 83 100 05/16/23 14:22 85 100 05/16/23 14:19 88 127/73 05/16/23 14:17 87 100 05/16/23 14:12 83 100 05/16/23 14:07 82 100 05/16/23 14:05 18 05/16/23 14:05 37.4 C 18 05/16/23 14:04 86 130/76 05/16/23 14:02 94 H 99 05/16/23 13:57 96 H 99 05/16/23 13:52 74 100 05/16/23 13:49 74 125/67 05/16/23 13:47 92 H 100 05/16/23 13:45 16 05/16/23 13:45 16 05/16/23 13:42 69 99 05/16/23 13:37 70 98 05/16/23 13:33 80 133/59 L 05/16/23 13:32 68 96 05/16/23 13:27 67 97 05/16/23 13:22 67 99 05/16/23 13:19 76 141/60 H 05/16/23 13:17 73 95 05/16/23 13:12 70 97 05/16/23 13:07 67 98 05/16/23 13:03 72 130/61 05/16/23 13:02 68 97 05/16/23 12:57 66 99 05/16/23 12:52 64 99 05/16/23 12:50 85 123/58 L 05/16/23 12:47 67 99 05/16/23 12:42 75 100 05/16/23 12:37 71 100 05/16/23 12:34 70 125/69 05/16/23 12:32 87 100 05/16/23 12:31 18 05/16/23 12:31 37.2 C 18 05/16/23 12:30 16 05/16/23 12:30 16 05/16/23 12:27 90 100 05/16/23 12:22 73 100 05/16/23 12:19 72 109/58 L 05/16/23 12:17 71 100 05/16/23 12:12 71 100 05/16/23 12:07 82 100 05/16/23 12:04 74 108/60 05/16/23 12:02 75 100 05/16/23 12:00 16 05/16/23 12:00 16 05/16/23 11:57 75 100 05/16/23 11:52 73 100 05/16/23 11:49 75 110/56 L 05/16/23 11:47 73 100 05/16/23 11:42 72 100 05/16/23 11:37 73 100 05/16/23 11:33 111/67 05/16/23 11:32 79 100 05/16/23 11:27 78 100 05/16/23 11:22 72 100 05/16/23 11:19 74 107/54 L 05/16/23 11:17 73 100 05/16/23 11:12 76 100 05/16/23 11:07 81 100 05/16/23 11:04 73 107/52 L 05/16/23 11:02 82 100 05/16/23 11:00 18 05/16/23 11:00 18 05/16/23 10:57 78 100 05/16/23 10:52 77 100 05/16/23 10:49 72 101/52 L 05/16/23 10:47 75 100 05/16/23 10:42 76 100 05/16/23 10:37 79 100 05/16/23 10:32 75 100 05/16/23 10:27 77 100 05/16/23 10:22 75 100 05/16/23 10:17 77 100 05/16/23 10:12 78 100 05/16/23 10:07 80 100 05/16/23 10:03 89 128/80 05/16/23 10:02 88 100 05/16/23 10:01 84 131/71 05/16/23 10:00 86 130/63 05/16/23 09:57 95 H 99 05/16/23 09:55 98 H 110/68 05/16/23 09:52 90 100 05/16/23 09:46 95 H 100 05/16/23 09:42 88 132/72 05/16/23 09:41 109 H 100 05/16/23 09:36 84 100 05/16/23 09:31 83 100 05/16/23 09:30 18 05/16/23 09:30 18 05/16/23 09:26 86 100 05/16/23 09:21 92 H 100 05/16/23 08:57 83 124/66 05/16/23 08:00 81 126/71 05/16/23 07:16 36.7 C 18 05/16/23 07:01 78 128/74
[2023-05-16] MEDS: CLINDAMYCIN/D5W 900 MG/50 ML BAG IV SCH (18:58)
[2023-05-16] MEDS ORDERED: Nursing to Pharmacy Communication SCH (19:19)
--- NOTE | 2023-05-16 20:20 | Obstetrical Progress Note ---
Date of Service May 16, 2023 Assessment & Plan Admission and Anticipated Discharge Date Admission Date: May 15, 2023 Subjective Now patient is pushing on her knees Caput succedaneum +, unable to tell station due to her position FHR categ I, Baseline came back to 150-160 Continue to monitor closely Results & Data Vital Signs (Past 12 Hours) Vital Signs Temp Pulse Resp BP Pulse Ox 05/16/23 20:12 123 H 97 05/16/23 20:07 128 H 98 05/16/23 20:02 121 H 99 05/16/23 19:57 106 H 98 05/16/23 19:52 100 H 100 05/16/23 19:48 85 125/72 05/16/23 19:47 97 H 99 05/16/23 19:45 18 05/16/23 19:45 18 05/16/23 19:42 97 H 99 05/16/23 19:37 100 H 99 05/16/23 19:34 90 143/77 H 05/16/23 19:32 118 H 100 05/16/23 19:27 91 H 97 05/16/23 19:22 104 H 100 05/16/23 19:19 90 138/66 05/16/23 19:17 86 98 05/16/23 19:12 97 H 98 05/16/23 19:07 100 H 98 05/16/23 19:06 115 H 158/72 H 05/16/23 19:02 97 H 99 05/16/23 19:00 18 05/16/23 19:00 37.3 C 18 05/16/23 18:57 93 H 100 05/16/23 18:52 96 H 98 05/16/23 18:49 108 H 139/63 05/16/23 18:47 128 H 100 05/16/23 18:45 22 05/16/23 18:45 22 05/16/23 18:42 93 H 100 05/16/23 18:37 106 H 100 05/16/23 18:35 105 H 175/71 H 05/16/23 18:32 115 H 100 05/16/23 18:27 102 H 100 05/16/23 18:25 18 05/16/23 18:25 38.2 C H 18 05/16/23 18:22 112 H 100 05/16/23 18:19 111 H 149/65 H 92 12/12/23 18:17 106 H 99 05/16/23 18:12 112 H 100 05/16/23 18:07 116 H 100 05/16/23 18:05 122 H 142/77 H 05/16/23 18:02 119 H 98 05/16/23 17:57 130 H 99 05/16/23 17:52 102 H 100 05/16/23 17:49 98 H 163/83 H 05/16/23 17:47 107 H 96 05/16/23 17:42 107 H 100 05/16/23 17:37 91 H 100 05/16/23 17:32 91 H 100 05/16/23 17:27 105 H 100 05/16/23 17:22 122 H 100 05/16/23 17:20 38 C H 20 05/16/23 17:17 104 H 100 05/16/23 17:12 117 H 100 05/16/23 17:07 85 100 05/16/23 17:02 101 H 100 05/16/23 16:57 109 H 100 05/16/23 16:52 85 100 05/16/23 16:49 77 128/65 05/16/23 16:47 80 100 05/16/23 16:42 82 100 05/16/23 16:37 93 H 100 05/16/23 16:32 82 100 05/16/23 16:27 89 100 05/16/23 16:22 83 100 05/16/23 16:17 77 100 05/16/23 16:12 89 100 05/16/23 16:07 88 100 05/16/23 16:04 18 05/16/23 16:04 37.0 C 18 05/16/23 16:02 110 H 100 05/16/23 15:57 89 100 05/16/23 15:52 94 H 100 05/16/23 15:49 85 126/59 L 05/16/23 15:47 98 H 100 05/16/23 15:42 89 100 05/16/23 15:37 86 100 05/16/23 15:33 94 H 114/54 L 05/16/23 15:32 108 H 100 05/16/23 15:30 18 05/16/23 15:30 18 05/16/23 15:27 95 H 100 05/16/23 15:22 95 H 100 05/16/23 15:20 93 H 116/50 L 05/16/23 15:17 101 H 100 05/16/23 15:12 99 H 100 05/16/23 15:07 90 100 05/16/23 15:04 90 119/59 L 05/16/23 15:02 96 H 100 05/16/23 15:00 18 05/16/23 15:00 18 05/16/23 14:57 85 100 05/16/23 14:52 93 H 100 05/16/23 14:49 88 128/57 L 05/16/23 14:47 97 H 100 05/16/23 14:42 108 H 100 05/16/23 14:37 82 100 05/16/23 14:34 88 138/75 05/16/23 14:32 82 100 05/16/23 14:30 18 05/16/23 14:30 18 05/16/23 14:27 83 100 05/16/23 14:22 85 100 05/16/23 14:19 88 127/73 05/16/23 14:17 87 100 05/16/23 14:12 83 100 05/16/23 14:07 82 100 05/16/23 14:05 18 05/16/23 14:05 37.4 C 18 05/16/23 14:04 86 130/76 05/16/23 14:02 94 H 99 05/16/23 13:57 96 H 99 05/16/23 13:52 74 100 05/16/23 13:49 74 125/67 05/16/23 13:47 92 H 100 05/16/23 13:45 16 05/16/23 13:45 16 05/16/23 13:42 69 99 05/16/23 13:37 70 98 05/16/23 13:33 80 133/59 L 05/16/23 13:32 68 96 05/16/23 13:27 67 97 05/16/23 13:22 67 99 05/16/23 13:19 76 141/60 H 05/16/23 13:17 73 95 05/16/23 13:12 70 97 05/16/23 13:07 67 98 05/16/23 13:03 72 130/61 05/16/23 13:02 68 97 05/16/23 12:57 66 99 05/16/23 12:52 64 99 05/16/23 12:50 85 123/58 L 05/16/23 12:47 67 99 05/16/23 12:42 75 100 05/16/23 12:37 71 100 05/16/23 12:34 70 125/69 05/16/23 12:32 87 100 05/16/23 12:31 18 05/16/23 12:31 37.2 C 18 05/16/23 12:30 16 05/16/23 12:30 16 05/16/23 12:27 90 100 05/16/23 12:22 73 100 05/16/23 12:19 72 109/58 L 05/16/23 12:17 71 100 05/16/23 12:12 71 100 05/16/23 12:07 82 100 05/16/23 12:04 74 108/60 05/16/23 12:02 75 100 05/16/23 12:00 16 05/16/23 12:00 16 05/16/23 11:57 75 100 05/16/23 11:52 73 100 05/16/23 11:49 75 110/56 L 05/16/23 11:47 73 100 05/16/23 11:42 72 100 05/16/23 11:37 73 100 05/16/23 11:33 111/67 05/16/23 11:32 79 100 05/16/23 11:27 78 100 05/16/23 11:22 72 100 05/16/23 11:19 74 107/54 L 05/16/23 11:17 73 100 05/16/23 11:12 76 100 05/16/23 11:07 81 100 05/16/23 11:04 73 107/52 L 05/16/23 11:02 82 100 05/16/23 11:00 18 05/16/23 11:00 18 05/16/23 10:57 78 100 05/16/23 10:52 77 100 05/16/23 10:49 72 101/52 L 05/16/23 10:47 75 100 05/16/23 10:42 76 100 05/16/23 10:37 79 100 05/16/23 10:32 75 100 05/16/23 10:27 77 100 05/16/23 10:22 75 100 05/16/23 10:17 77 100 05/16/23 10:12 78 100 05/16/23 10:07 80 100 05/16/23 10:03 89 128/80 05/16/23 10:02 88 100 05/16/23 10:01 84 131/71 05/16/23 10:00 86 130/63 05/16/23 09:57 95 H 99 05/16/23 09:55 98 H 110/68 05/16/23 09:52 90 100 05/16/23 09:46 95 H 100 05/16/23 09:42 88 132/72 05/16/23 09:41 109 H 100 05/16/23 09:36 84 100 05/16/23 09:31 83 100 05/16/23 09:30 18 05/16/23 09:30 18 05/16/23 09:26 86 100 05/16/23 09:21 92 H 100 05/16/23 08:57 83 124/66
--- NOTE | 2023-05-16 20:52 | Obstetrical Progress Note ---
Date of Service May 16, 2023 Assessment & Plan Admission and Anticipated Discharge Date Admission Date: May 15, 2023 Subjective Patient had been pushing for about 3 hours, exhausted and crying VE; caput succedaneum, +2, unable to tell OP or not FHR categ I Discussed options of continue with pushing vs Primary Ceserean delivery Patient desires C section Patient understands C section is a major surgery, with risks including but not limited to bleeding , infection, injury to surrounding organs like bowels, bladder, ureters, adhesions, scarring, wound infection, blood cloths in legs/ lungs, longer recovery. All questions were answered. She signed an informed consent. Results & Data Vital Signs (Past 12 Hours) Vital Signs Temp Pulse Resp BP Pulse Ox 05/16/23 20:45 109 H 100 05/16/23 20:40 108 H 100 05/16/23 20:35 120 H 155/76 H 100 05/16/23 20:30 121 H 100 05/16/23 20:22 129 H 99 05/16/23 20:19 110 H 145/72 H 05/16/23 20:17 133 H 99 05/16/23 20:15 16 05/16/23 20:15 16 05/16/23 20:12 123 H 97 05/16/23 20:07 128 H 98 05/16/23 20:02 121 H 99 05/16/23 19:57 106 H 98 05/16/23 19:52 100 H 100 05/16/23 19:48 85 125/72 05/16/23 19:47 97 H 99 05/16/23 19:45 18 05/16/23 19:45 18 05/16/23 19:42 97 H 99 05/16/23 19:37 100 H 99 05/16/23 19:34 90 143/77 H 05/16/23 19:32 118 H 100 05/16/23 19:27 91 H 97 05/16/23 19:22 104 H 100 05/16/23 19:19 90 138/66 05/16/23 19:17 86 98 05/16/23 19:12 97 H 98 05/16/23 19:07 100 H 98 05/16/23 19:06 115 H 158/72 H 05/16/23 19:02 97 H 99 12/12/23 19:00 18 05/16/23 19:00 37.3 C 18 05/16/23 18:57 93 H 100 05/16/23 18:52 96 H 98 05/16/23 18:49 108 H 139/63 05/16/23 18:47 128 H 100 05/16/23 18:45 22 05/16/23 18:45 22 05/16/23 18:42 93 H 100 05/16/23 18:37 106 H 100 05/16/23 18:35 105 H 175/71 H 05/16/23 18:32 115 H 100 05/16/23 18:27 102 H 100 05/16/23 18:25 18 05/16/23 18:25 38.2 C H 18 05/16/23 18:22 112 H 100 05/16/23 18:19 111 H 149/65 H 92 05/16/23 18:17 106 H 99 05/16/23 18:12 112 H 100 05/16/23 18:07 116 H 100 05/16/23 18:05 122 H 142/77 H 05/16/23 18:02 119 H 98 05/16/23 17:57 130 H 99 05/16/23 17:52 102 H 100 05/16/23 17:49 98 H 163/83 H 05/16/23 17:47 107 H 96 05/16/23 17:42 107 H 100 05/16/23 17:37 91 H 100 05/16/23 17:32 91 H 100 05/16/23 17:27 105 H 100 05/16/23 17:22 122 H 100 05/16/23 17:20 38 C H 20 05/16/23 17:17 104 H 100 05/16/23 17:12 117 H 100 05/16/23 17:07 85 100 05/16/23 17:02 101 H 100 05/16/23 16:57 109 H 100 05/16/23 16:52 85 100 05/16/23 16:49 77 128/65 05/16/23 16:47 80 100 05/16/23 16:42 82 100 05/16/23 16:37 93 H 100 05/16/23 16:32 82 100 05/16/23 16:27 89 100 05/16/23 16:22 83 100 05/16/23 16:17 77 100 05/16/23 16:12 89 100 05/16/23 16:07 88 100 05/16/23 16:04 18 05/16/23 16:04 37.0 C 18 05/16/23 16:02 110 H 100 05/16/23 15:57 89 100 05/16/23 15:52 94 H 100 05/16/23 15:49 85 126/59 L 05/16/23 15:47 98 H 100 05/16/23 15:42 89 100 05/16/23 15:37 86 100 05/16/23 15:33 94 H 114/54 L 05/16/23 15:32 108 H 100 05/16/23 15:30 18 05/16/23 15:30 18 05/16/23 15:27 95 H 100 05/16/23 15:22 95 H 100 05/16/23 15:20 93 H 116/50 L 05/16/23 15:17 101 H 100 05/16/23 15:12 99 H 100 05/16/23 15:07 90 100 05/16/23 15:04 90 119/59 L 05/16/23 15:02 96 H 100 05/16/23 15:00 18 05/16/23 15:00 18 05/16/23 14:57 85 100 05/16/23 14:52 93 H 100 05/16/23 14:49 88 128/57 L 05/16/23 14:47 97 H 100 05/16/23 14:42 108 H 100 05/16/23 14:37 82 100 05/16/23 14:34 88 138/75 05/16/23 14:32 82 100 05/16/23 14:30 18 05/16/23 14:30 18 05/16/23 14:27 83 100 05/16/23 14:22 85 100 05/16/23 14:19 88 127/73 05/16/23 14:17 87 100 05/16/23 14:12 83 100 05/16/23 14:07 82 100 05/16/23 14:05 18 05/16/23 14:05 37.4 C 18 05/16/23 14:04 86 130/76 05/16/23 14:02 94 H 99 05/16/23 13:57 96 H 99 05/16/23 13:52 74 100 05/16/23 13:49 74 125/67 05/16/23 13:47 92 H 100 05/16/23 13:45 16 05/16/23 13:45 16 05/16/23 13:42 69 99 05/16/23 13:37 70 98 05/16/23 13:33 80 133/59 L 05/16/23 13:32 68 96 05/16/23 13:27 67 97 05/16/23 13:22 67 99 05/16/23 13:19 76 141/60 H 05/16/23 13:17 73 95 05/16/23 13:12 70 97 05/16/23 13:07 67 98 05/16/23 13:03 72 130/61 05/16/23 13:02 68 97 05/16/23 12:57 66 99 05/16/23 12:52 64 99 05/16/23 12:50 85 123/58 L 05/16/23 12:47 67 99 05/16/23 12:42 75 100 05/16/23 12:37 71 100 05/16/23 12:34 70 125/69 05/16/23 12:32 87 100 05/16/23 12:31 18 05/16/23 12:31 37.2 C 18 05/16/23 12:30 16 05/16/23 12:30 16 05/16/23 12:27 90 100 05/16/23 12:22 73 100 05/16/23 12:19 72 109/58 L 05/16/23 12:17 71 100 05/16/23 12:12 71 100 05/16/23 12:07 82 100 05/16/23 12:04 74 108/60 05/16/23 12:02 75 100 05/16/23 12:00 16 05/16/23 12:00 16 05/16/23 11:57 75 100 05/16/23 11:52 73 100 05/16/23 11:49 75 110/56 L 05/16/23 11:47 73 100 05/16/23 11:42 72 100 05/16/23 11:37 73 100 05/16/23 11:33 111/67 05/16/23 11:32 79 100 05/16/23 11:27 78 100 05/16/23 11:22 72 100 05/16/23 11:19 74 107/54 L 05/16/23 11:17 73 100 05/16/23 11:12 76 100 05/16/23 11:07 81 100 05/16/23 11:04 73 107/52 L 05/16/23 11:02 82 100 05/16/23 11:00 18 05/16/23 11:00 18 05/16/23 10:57 78 100 05/16/23 10:52 77 100 05/16/23 10:49 72 101/52 L 05/16/23 10:47 75 100 05/16/23 10:42 76 100 05/16/23 10:37 79 100 05/16/23 10:32 75 100 05/16/23 10:27 77 100 05/16/23 10:22 75 100 05/16/23 10:17 77 100 05/16/23 10:12 78 100 05/16/23 10:07 80 100 05/16/23 10:03 89 128/80 05/16/23 10:02 88 100 05/16/23 10:01 84 131/71 05/16/23 10:00 86 130/63 05/16/23 09:57 95 H 99 05/16/23 09:55 98 H 110/68 05/16/23 09:52 90 100 05/16/23 09:46 95 H 100 05/16/23 09:42 88 132/72 05/16/23 09:41 109 H 100 05/16/23 09:36 84 100 05/16/23 09:31 83 100 05/16/23 09:30 18 05/16/23 09:30 18 05/16/23 09:26 86 100 05/16/23 09:21 92 H 100 05/16/23 08:57 83 124/66
[2023-05-16] MEDS ORDERED: LACTATED RINGER'S 1,000 ML IV SCH ×2 (21:00→22:00)
[2023-05-16] MEDS ORDERED: CITRIC ACID/SODIUM CITRATE 15 ML UDC PO STA (21:07)
[2023-05-16] MEDS ORDERED: AZITHROMYCIN 500 MG in DEXTROSE 5% 250 ML IV SCH (21:15)
[2023-05-16] MEDS ORDERED: ceFAZolin 2000MG 2,000 MG/15 ML SYR IV SCH (21:15)
--- NOTE | 2023-05-16 21:23 | Communication Note ---
Date of Service: May 16, 2023 patient failed to deliver after 3 hours of pushing. epidural working well. will dose epidural for c section
[2023-05-16] MEDS ORDERED: MoRPHine SULFATE PF 1 MG/ML 10 ML AMP/VIAL ONE (21:37)
[2023-05-16] MEDS ORDERED: KETOROLAC 30 MG/ML VIAL ONE (21:52)
[2023-05-16] MEDS ORDERED: ONDANSETRON INJ 2 MG/ML 2 ML VIAL ONE (21:52)
[2023-05-16] MEDS ORDERED: OXYTOCIN 10 UNITS/ML VIAL ONE (21:52)
[2023-05-16] MEDS ORDERED: MoRPHine SULFATE PF 1 MG/ML 10 ML AMP/VIAL EPI ONE (22:21)
[2023-05-16] MEDS ORDERED: NALOXONE HCL 0.08 MG in SYRINGE 1.8 ML IV PRN (22:21)
[2023-05-16] MEDS ORDERED: MEPERIDINE HCL 25 MG/ML CARP/VIAL IV PRN (22:21)
[2023-05-16] MEDS ORDERED: PROMETHAZINE HCL 6.25 MG in SODIUM CHLORIDE 0.9% 50 ML IV PRN (22:21)
[2023-05-16] MEDS ORDERED: LACTATED RINGER'S 500 ML IV PRN (22:21)
[2023-05-16] MEDS ORDERED: HYDROmorphone INJ 0.5 MG/0.5 ML SYR IV PRN (22:21)
[2023-05-16] MEDS ORDERED: MoRPHine SULFATE 2 MG/ML CARP IV PRN (22:21)
[2023-05-16] MEDS ORDERED: DC INTRASPINAL MORPHINE SCH (22:30)
[2023-05-16] MEDS ORDERED: NO NARCOTICS OR SEDATIVES SCH (22:30)
[2023-05-16] MEDS ORDERED: SODIUM CHLORIDE 0.9% 1,000 ML IV SCH (22:30)
[2023-05-16] MEDS ORDERED: HYDROCORTISONE ACETATE 25 MG SUPP PR PRN (22:38)
[2023-05-16] MEDS ORDERED: MEASLES, MUMPS & RUBELLA VIRUS VACCINE (MMR) VIAL SQ ONE (22:38)
[2023-05-16] MEDS ORDERED: BENZOCAINE 20% SPRY 85 APPLN/85 GM CAN EXT PRN (22:38)
[2023-05-16] MEDS ORDERED: MAGNESIUM HYDROXIDE SUSP 30 ML UDC PO PRN (22:38)
[2023-05-16] MEDS ORDERED: SENNA 8.6 MG TAB PO PRN (22:38)
[2023-05-16] MEDS ORDERED: DIPHTHERIA/TETANUS/PERTUSSIS Vaccine (Tdap, Age 7+yrs) 0.5mL SYR/VL IM ONE (22:38)
[2023-05-16] MEDS ORDERED: OXYTOCIN 10 UNITS/ML 10ML VIAL IM ONE (22:44)
--- NOTE | 2023-05-16 22:45 | Operative Report ---
Post Operative Report Pre & Post Diagnosis Operation Date: 05/16/23 20:50 Pre-Op Diagnosis: 1: Arrested decent 2: Suspected macrosomia Post-Op Diagnosis: Same I identified the patient and participated in the time-out.: Yes Procedure Operation Date: 05/16/23 20:50 Actual Procedures p Section in LD with the of a live male child at 2148.(Bilateral) - Reinier Rodriguez MD Surgeon Reinier Rodriguez MD Wage Conciliator Dr Anderson Estimated Blood Loss 600 Findings Consistent with Post-Op Diagnosis Baby was a viable male delivered in cephalic position, Apgars 8/9 and weight is 4140 g. Maternal findings: normal uterus fallopian tubes and ovaries. Specimens Placenta Drains Khalil catheter drained 100 amount of clear urine Anesthesia Type Labor Epidural Complications none Indications 27-year-old G1, P0 at 40 weeks and 2 days of gestation presenting with prolonged rupture of membranes, arrest of descent in second stage of labor, suspected macrosomia, intraamniotic infection. Description of Procedure Patient was taken to operating room where labor epidural anesthesia was checked to be adequate. She was placed in dorsal supine position with a leftward tilt. She was prepared and draped in usual sterile fashion. A financial skin incision was made and carried through to the underlying layer of fascia with the Bovie. Fascia was incised in the midline and incision was extended laterally with the help of Mckeon scissors. Then the upper aspect of the fascial incision was grasped with 2 Mazin clamps elevated the underlying rectus muscles were dissected off sharply with Mckeon scissors. Same thing was done on the lower incision. Then the muscles were in the midline, peritoneum was identified grasped with 2 pickups and entered sharply with Metzenbaum scissors. Peritoneal incision was extended superior and inferiorly with good visualization of the bladder. The bladder blade was inserted. Vesicouterine peritoneum was identified, grasped with pickups and entered sharply with Metzenbaum scissors, bladder flap was created digitally and bladder blade was reinserted. Uterus was incised in transverse fashion, incision was extended laterally with our appendage scissors, membranes were ruptured and clear fluid was obtained. Baby's head was low in pelvis, it was held up and alessia to the incision, and delivered withhout difficulty. Then the shoulders were delivered. Mouth and nose were suctioned there was dried on the field he was vigorously crying and moving. The cord was clamped times and cut at 1 minute delay and then the infant was handed off to the pediatric team. Then the placenta was delivered manually as intact and complete. Uterus was externalized and cleared of all clots and debris's. Uterine incision was repaired with 0 Vicryl in a running locked fashion, second umbricating layer was placed with the same suture in running locked fashion. Excellent hemostasis achieved. Cul-de-sac and the pelvis was irrigated with warm normal saline and suctioned. Incision was checked of anesthetic again. Uterus was returned to the abdomen, parietal peritoneum was reapproximated with 3-0 Vicryl in a running fashion and the muscles were reapproximated in the same suture in a running fashion. All of the fascia and rectus muscles were hemostatic. Rectus fascia was reapproximated with 3-0 Vicryl starting from both columns meeting in the midline. Subcuticular fat tissue was brought together with 2-0 Vicryl in a running fashion, skin was closed with 4-0 Monocryl in a subcuticular cuticular fashion. The mom and baby tolerated procedure well. Sponge needle instrument count was correct x3. No complications happened, I was present during whole procedure. My communication assistant was needed for retraction, hemostasis and aid during delivery of . I attest to the content of the Intraoperative Record and any orders documented therein. Any exceptions are noted below.
[2023-05-16] MEDS ORDERED: OXYTOCIN 20 UNITS in D5W AND LACTATED RINGERS 1,000 ML IV SCH (23:15)
[2023-05-17] MEDS: ceFAZolin 2000MG 2,000 MG/15 ML SYR IV SCH ×3 (01:09→17:12)
[2023-05-17] MEDS: CLINDAMYCIN/D5W 900 MG/50 ML BAG IV SCH ×3 (03:22→18:42)
[2023-05-17] MEDS: KETOROLAC 30 MG/ML VIAL IV PRN ×2 (04:05→10:21)
[2023-05-17] MEDS ORDERED: LACTATED RINGER'S 1,000 ML IV SCH (07:15)
[2023-05-17] MEDS ORDERED: OXYTOCIN 20 UNITS/LR 1,002 ML IV SCH (07:15)
[2023-05-17 08:50] LABS: Basophils # (auto) 0.04 K/uL (0.00-0.20); Basophils % (auto) 0.2 %; Hemoglobin 9.6 g/dl (12.0-16.0); Immature Granulocytes # (auto) 0.14 K/uL (0.01-0.20); Immature Granulocytes % (auto) 0.7 %; Lymphocytes # (auto) 1.46 K/uL (1.20-3.40); Lymphocytes % (auto) 7.7 %; Mean Corpuscular Hemoglobin 27.7 pg (25.0-34.0); Mean Corpuscular Hgb Conc 33.1 g/dL (32.0-36.0); Mean Corpuscular Volume 83.6 fL (80.0-100.0); Mean Platelet Volume 12.1 fL (9.4-12.4); Monocytes # (auto) 1.54 K/uL (0.11-0.59); Monocytes % (auto) 8.1 %; Neutrophils # (auto) 15.79 K/uL (1.40-6.50); Neutrophils % (auto) 83.3 %; Platelet Count 168 K/uL (130-400); RDW Coefficient of Variation 15.1 % (11.5-14.5); RDW Standard Deviation 45.8 fL (36.4-46.3); Red Blood Count 3.47 M/uL (4.20-5.40); White Blood Count 18.97 K/ul (4.8-10.8)
[2023-05-17] MEDS: DOCUSATE SODIUM 100 MG CAP PO SCH ×2 (08:51→20:11)
[2023-05-17] MEDS: FERROUS SULFATE 325 MG TAB PO SCH (08:52)
[2023-05-17] MEDS: SIMETHICONE 80 MG CHEW PO SCH ×4 (08:52→20:11)
[2023-05-17] MEDS: PRENATAL VITAMIN 1 TAB PO SCH (08:52)
--- NOTE | 2023-05-17 10:25 | Obstetrical Progress Note ---
Date of Service May 17, 2023 Subjective Ambulation: ambulating normally Voiding: no voiding problems Passing Gas:: Yes Diet Tolerance:: regular diet Lochia:: Small Feeding Type:: breast feeding Current Pain Level(1-10): 0 doing well Physical Exam Constitutional WD/WN, vitals as above Gastrointestinal (Abdomen) Inspection/Auscultation: abdomen normal to inspection Musculoskeletal Extremities: extremities normal to inspection Skin no rashes, warm and dry Neurologic patellar DTR's 2+ bilat, sensation intact Psychiatric A+Ox3, euthymic affect Results & Data Vital Signs (Past 12 Hours) Vital Signs Temp Pulse Pulse Resp BP BP Pulse Ox 05/17/23 08:10 18 98 05/17/23 08:10 36.8 C 83 18 118/73 98 05/17/23 07:40 16 95 05/17/23 06:00 20 97 05/17/23 05:00 18 95 05/17/23 04:00 18 94 05/17/23 03:30 18 97 05/17/23 03:30 36.8 C 82 18 124/69 97 05/17/23 02:00 18 95 05/17/23 01:04 18 96 05/17/23 01:04 36.8 C 78 18 128/69 96 05/17/23 00:45 84 96 05/17/23 00:41 88 94 05/17/23 00:40 37.2 C 18 05/17/23 00:40 85 94 05/17/23 00:39 70 121/60 05/17/23 00:35 85 98 05/17/23 00:32 79 94 05/17/23 00:30 78 98 05/17/23 00:27 72 94 05/17/23 00:25 72 98 05/17/23 00:20 76 98 05/17/23 00:15 78 96 05/17/23 00:10 16 05/17/23 00:10 77 98 05/17/23 00:09 75 113/56 L 05/17/23 00:05 79 98 05/17/23 00:00 77 97 05/16/23 23:55 80 97 05/16/23 23:51 74 111/52 L 05/16/23 23:50 88 97 05/16/23 23:45 86 99 05/16/23 23:41 87 113/56 L 05/16/23 23:40 18 05/16/23 23:40 88 97 05/16/23 23:35 79 97 05/16/23 23:31 78 101/52 L 05/16/23 23:30 16 05/16/23 23:30 81 97 05/16/23 23:25 79 96 05/16/23 23:21 94 H 120/56 L 05/16/23 23:20 18 05/16/23 23:20 94 H 98 05/16/23 23:15 80 97 05/16/23 23:10 18 05/16/23 23:10 78 109/50 L 97 05/16/23 23:05 89 98 05/16/23 23:01 89 78/50 L 05/16/23 23:00 16 05/16/23 23:00 85 98 05/16/23 22:55 83 97 05/16/23 22:51 85 101/51 L 05/16/23 22:50 18 05/16/23 22:50 83 96 05/16/23 22:43 96 H 109/49 L 05/16/23 22:40 37.1 C 18 O2 Del Method 05/17/23 08:10 05/17/23 08:10 Room Air 05/17/23 07:40 05/17/23 06:00 05/17/23 05:00 05/17/23 04:00 05/17/23 03:30 05/17/23 03:30 Room Air 05/17/23 02:00 05/17/23 01:04 05/17/23 01:04 Room Air 05/17/23 00:45 05/17/23 00:41 05/17/23 00:40 05/17/23 00:40 05/17/23 00:39 05/17/23 00:35 05/17/23 00:32 05/17/23 00:30 05/17/23 00:27 05/17/23 00:25 05/17/23 00:20 05/17/23 00:15 05/17/23 00:10 05/17/23 00:10 05/17/23 00:09 05/17/23 00:05 05/17/23 00:00 05/16/23 23:55 05/16/23 23:51 05/16/23 23:50 05/16/23 23:45 05/16/23 23:41 05/16/23 23:40 05/16/23 23:40 05/16/23 23:35 05/16/23 23:31 05/16/23 23:30 05/16/23 23:30 05/16/23 23:25 05/16/23 23:21 05/16/23 23:20 05/16/23 23:20 05/16/23 23:15 05/16/23 23:10 05/16/23 23:10 05/16/23 23:05 05/16/23 23:01 05/16/23 23:00 05/16/23 23:00 05/16/23 22:55 05/16/23 22:51 05/16/23 22:50 05/16/23 22:50 05/16/23 22:43 05/16/23 22:40 Laboratory Results 05/15/23 05/15/23 05/16/23 13:00 13:07 13:07 WBC 9.55 RBC 4.76 Hgb 12.9 Hct 40.2 MCV 84.5 MCH 27.1 MCHC 32.1 RDW Std Deviation 45.1 RDW Coeff of Linda 14.6 H Plt Count 213 MPV 11.2 Immature Gran % (Auto) Neut % (Auto) Lymph % (Auto) [place] % (Auto) Eos % (Auto) Baso % (Auto) Neut # (Auto) Lymph # (Auto) [place] # (Auto) Eos # (Auto) Baso # (Auto) Immature Gran # (Auto) Sodium 138 Potassium 4.4 Chloride 105 Carbon Dioxide 26 Anion Gap 7 BUN 9 Creatinine 0.57 L Est Cr Clr Drug Dosing Not Reportable Est GFR ( Amer) 147.2 Est GFR (Non-Af Amer) 127.0 BUN/Creatinine Ratio 15.8 Glucose 95 Calcium 9.5 Total Bilirubin 0.4 AST 24 ALT 17 Alkaline Phosphatase 237 H Total Protein 6.5 Albumin 3.7 Globulin 2.8 Albumin/Globulin Ratio 1.3 Ur Random Creatinine 64.9 U Random Total Protein 11.9 Protein/Creatinin Ratio 0.2 Blood Type O Positive Cancelled Antibody Screen NEGATIVE Cancelled 05/17/23 06:01 WBC 18.97 H RBC 3.47 L Hgb 9.6 L D Hct 29.0 L MCV 83.6 MCH 27.7 MCHC 33.1 RDW Std Deviation 45.8 RDW Coeff of Ilnda 15.1 H Plt Count 168 MPV 12.1 Immature Gran % (Auto) 0.7 Neut % (Auto) 83.3 Lymph % (Auto) 7.7 [place] % (Auto) 8.1 Eos % (Auto) 0.0 Baso % (Auto) 0.2 Neut # (Auto) 15.79 H Lymph # (Auto) 1.46 [place] # (Auto) 1.54 H Eos # (Auto) 0.00 Baso # (Auto) 0.04 Immature Gran # (Auto) 0.14 Sodium Potassium Chloride Carbon Dioxide Anion Gap BUN Creatinine Est Cr Clr Drug Dosing Est GFR ( Amer) Est GFR (Non-Af Amer) BUN/Creatinine Ratio Glucose Calcium Total Bilirubin AST ALT Alkaline Phosphatase Total Protein Albumin Globulin Albumin/Globulin Ratio Ur Random Creatinine U Random Total Protein Protein/Creatinin Ratio Blood Type Antibody Screen
[2023-05-17] MEDS ORDERED: PROMETHAZINE HCL 25 MG in SODIUM CHLORIDE 0.9% 50 ML IV PRN (16:21)
[2023-05-17] MEDS ORDERED: ONDANSETRON INJ 2 MG/ML 2 ML VIAL IV PRN (16:21)
[2023-05-17] MEDS ORDERED: diphenhydrAMINE Capsule 25 MG CAP PO PRN (16:21)
[2023-05-17] MEDS ORDERED: KETOROLAC 30 MG/ML VIAL IV PRN (16:21)
[2023-05-17] MEDS ORDERED: MEPERIDINE HCL 50 MG/ML CARP IV PRN (16:21)
[2023-05-17] MEDS ORDERED: diphenhydrAMINE 50 MG/ML VIAL IV PRN (16:21)
[2023-05-17] MEDS: oxyCODONE/ACETAMINOPHEN 5mg/325mg TAB PO PRN ×2 (17:16→21:33)
[2023-05-17] MEDS: IBUPROFEN 600 MG TAB PO PRN ×2 (17:17→21:33)
[2023-05-17] MEDS ORDERED: bisacodyL 5 MG TABEC PO SCH (20:00)
[2023-05-18] MEDS: ceFAZolin 2000MG 2,000 MG/15 ML SYR IV SCH (01:12)
[2023-05-18] MEDS: oxyCODONE/ACETAMINOPHEN 5mg/325mg TAB PO PRN ×5 (06:14→23:04)
[2023-05-18] MEDS: IBUPROFEN 600 MG TAB PO PRN ×5 (06:15→23:04)
[2023-05-18 06:49] LABS: Basophils # (auto) 0.03 K/uL (0.00-0.20); Basophils % (auto) 0.2 %; Eosinophils # (auto) 0.14 K/uL (0.00-0.50); Eosinophils % (auto) 1.1 %; Hematocrit (blood only) 26.8 % (37.0-47.0); Hemoglobin 8.9 g/dl (12.0-16.0); Immature Granulocytes # (auto) 0.14 K/uL (0.01-0.20); Immature Granulocytes % (auto) 1.1 %; Lymphocytes # (auto) 1.86 K/uL (1.20-3.40); Lymphocytes % (auto) 14.8 %; Mean Corpuscular Hemoglobin 27.7 pg (25.0-34.0); Mean Corpuscular Hgb Conc 33.2 g/dL (32.0-36.0); Mean Corpuscular Volume 83.5 fL (80.0-100.0); Mean Platelet Volume 11.4 fL (9.4-12.4); Monocytes # (auto) 1.14 K/uL (0.11-0.59); Monocytes % (auto) 9.1 %; Neutrophils # (auto) 9.22 K/uL (1.40-6.50); Neutrophils % (auto) 73.7 %; Platelet Count 156 K/uL (130-400); RDW Coefficient of Variation 15.1 % (11.5-14.5); RDW Standard Deviation 46.3 fL (36.4-46.3); Red Blood Count 3.21 M/uL (4.20-5.40); White Blood Count 12.53 K/ul (4.8-10.8)
[2023-05-18] MEDS: PRENATAL VITAMIN 1 TAB PO SCH (07:49)
[2023-05-18] MEDS: SIMETHICONE 80 MG CHEW PO SCH ×4 (07:49→20:03)
[2023-05-18] MEDS: FERROUS SULFATE 325 MG TAB PO SCH (07:49)
[2023-05-18] MEDS: DOCUSATE SODIUM 100 MG CAP PO SCH ×2 (07:49→20:03)
--- NOTE | 2023-05-18 08:52 | Obstetrical Progress Note ---
Date of Service May 18, 2023 Assessment & Plan Admission and Anticipated Discharge Date Admission Date: May 15, 2023 Subjective Patient is seen and examined. She feels well, no complaints. Pain is under control with oral meds. Ambulating without dizziness Voiding without difficulty Tolerating regular diet with out N&V Flatus + BM neg Bleeding is minimal No fever/ chills/ CP/ SOB/ N&V/ Leg pain Breast feeding without problems Vital Signs Temp Pulse Pulse Resp BP Pulse Ox O2 Del Method 05/18/23 07:40 36.6 C 87 18 122/78 Room Air 05/18/23 01:15 36.6 C 74 20 121/81 99 Room Air Lab Results 05/15/23 05/15/23 05/16/23 Range/Units 13:00 13:07 13:07 WBC 9.55 (4.8-10.8) K/ul RBC 4.76 (4.20-5.40) M/uL Hgb 12.9 (12.0-16.0) g/dl Hct 40.2 (37.0-47.0) % MCV 84.5 (80.0-100.0) fL MCH 27.1 (25.0-34.0) pg MCHC 32.1 (32.0-36.0) g/dL RDW Std Deviation 45.1 (36.4-46.3) fL RDW Coeff of Linda 14.6 H (11.5-14.5) % Plt Count 213 (130-400) K/uL MPV 11.2 (9.4-12.4) fL Immature Gran % (Auto) % Neut % (Auto) % Lymph % (Auto) % [place] % (Auto) % Eos % (Auto) % Baso % (Auto) % Neut # (Auto) (1.40-6.50) K/uL Lymph # (Auto) (1.20-3.40) K/uL [place] # (Auto) (0.11-0.59) K/uL Eos # (Auto) (0.00-0.50) K/uL Baso # (Auto) (0.00-0.20) K/uL Immature Gran # (Auto) (0.01-0.20) K/uL Sodium 138 (136-145) mmol/L Potassium 4.4 (3.5-5.1) mmol/L Chloride 105 (98-107) mmol/L Carbon Dioxide 26 (21-32) mmol/L Anion Gap 7 (3-11) BUN 9 (6-23) mg/dl Creatinine 0.57 L (0.6-1.2) mg/dl Est Cr Clr Drug Dosing Not Reportable Est GFR ( Amer) 147.2 ml/min Est GFR (Non-Af Amer) 127.0 ml/min BUN/Creatinine Ratio 15.8 (10-20) Glucose 95 (70-99(Fasting)) mg/dl Calcium 9.5 (8.6-10.3) mg/dl Total Bilirubin 0.4 (0.2-1.0) mg/dl AST 24 (13-39) U/L ALT 17 (7-52) U/L Alkaline Phosphatase 237 H (34-104) U/L Total Protein 6.5 (6.0-8.3) gm/dl Albumin 3.7 (3.4-5.0) gm/dl Globulin 2.8 (2.5-4.0) gm/dl Albumin/Globulin Ratio 1.3 (0.9-2) Ur Random Creatinine 64.9 mg/dl U Random Total Protein 11.9 (0-11.9) mg/dl Protein/Creatinin Ratio 0.2 (0-0.2) Blood Type O Positive Cancelled Antibody Screen NEGATIVE Cancelled 05/17/23 05/18/23 Range/Units 06:01 06:07 WBC 18.97 H 12.53 H (4.8-10.8) K/ul RBC 3.47 L 3.21 L (4.20-5.40) M/uL Hgb 9.6 L D 8.9 L (12.0-16.0) g/dl Hct 29.0 L 26.8 L (37.0-47.0) % MCV 83.6 83.5 (80.0-100.0) fL MCH 27.7 27.7 (25.0-34.0) pg MCHC 33.1 33.2 (32.0-36.0) g/dL RDW Std Deviation 45.8 46.3 (36.4-46.3) fL RDW Coeff of Linda 15.1 H 15.1 H (11.5-14.5) % Plt Count 168 156 (130-400) K/uL MPV 12.1 11.4 (9.4-12.4) fL Immature Gran % (Auto) 0.7 1.1 % Neut % (Auto) 83.3 73.7 % Lymph % (Auto) 7.7 14.8 % [place] % (Auto) 8.1 9.1 % Eos % (Auto) 0.0 1.1 % Baso % (Auto) 0.2 0.2 % Neut # (Auto) 15.79 H 9.22 H (1.40-6.50) K/uL Lymph # (Auto) 1.46 1.86 (1.20-3.40) K/uL [place] # (Auto) 1.54 H 1.14 H (0.11-0.59) K/uL Eos # (Auto) 0.00 0.14 (0.00-0.50) K/uL Baso # (Auto) 0.04 0.03 (0.00-0.20) K/uL Immature Gran # (Auto) 0.14 0.14 (0.01-0.20) K/uL Sodium (136-145) mmol/L Potassium (3.5-5.1) mmol/L Chloride (98-107) mmol/L Carbon Dioxide (21-32) mmol/L Anion Gap (3-11) BUN (6-23) mg/dl Creatinine (0.6-1.2) mg/dl Est Cr Clr Drug Dosing Est GFR ( Amer) ml/min Est GFR (Non-Af Amer) ml/min BUN/Creatinine Ratio (10-20) Glucose (70-99(Fasting)) mg/dl Calcium (8.6-10.3) mg/dl Total Bilirubin (0.2-1.0) mg/dl AST (13-39) U/L ALT (7-52) U/L Alkaline Phosphatase (34-104) U/L Total Protein (6.0-8.3) gm/dl Albumin (3.4-5.0) gm/dl Globulin (2.5-4.0) gm/dl Albumin/Globulin Ratio (0.9-2) Ur Random Creatinine mg/dl U Random Total Protein (0-11.9) mg/dl Protein/Creatinin Ratio (0-0.2) Blood Type Antibody Screen PE: General: Alert, orientedx3, NAD CVS: S1S2 RRR Lungs; CTAB Abd: soft, NT, ND, BS+, fundus firm, below Umbilicus Incision: Clean, dry, intact Perineum intact, Lochia rubra minimal Ext; NT, +1/1 edema, homans sign neg/ neg AP: 27 yo s/p C Section, pod# 2 VSS Afebrile doing well Continue routine postop care Encourage ambulation, PO intake All questions were answered D/C home tomorrow Results & Data Vital Signs (Past 12 Hours) Vital Signs Temp Pulse Pulse Resp BP Pulse Ox O2 Del Method 05/18/23 07:40 36.6 C 87 18 122/78 Room Air 05/18/23 01:15 36.6 C 74 20 121/81 99 Room Air
[2023-05-18] MEDS ORDERED: bisacodyL 10 MG SUPP PR PRN (22:38)
[2023-05-19] MEDS: IBUPROFEN 600 MG TAB PO PRN ×2 (04:33→09:38)
[2023-05-19] MEDS: oxyCODONE/ACETAMINOPHEN 5mg/325mg TAB PO PRN ×2 (04:33→09:39)
--- NOTE | 2023-05-19 07:22 | Obstetrical Progress Note ---
Date of Service May 19, 2023 Assessment & Plan Admission and Anticipated Discharge Date Admission Date: May 15, 2023 Subjective Patient is seen and examined. She feels well, no complaints. Pain is under control with oral meds. Ambulating without dizzinesss Voiding without difficulty Tolerating regular diet with out N&V Flatus + BM + Bleeding is minimal No fever/ chills/ CP/ SOB/ N&V/ Leg pain Breast feeding without problems Vital Signs Temp Pulse Resp BP Pulse Ox O2 Del Method 05/19/23 04:30 36.6 C 65 137/84 05/18/23 23:05 36.5 C 77 18 129/90 100 Room Air 05/18/23 19:40 36.6 C 80 18 119/74 97 Room Air Lab Results 05/15/23 05/15/23 05/16/23 Range/Units 13:00 13:07 13:07 WBC 9.55 (4.8-10.8) K/ul RBC 4.76 (4.20-5.40) M/uL Hgb 12.9 (12.0-16.0) g/dl Hct 40.2 (37.0-47.0) % MCV 84.5 (80.0-100.0) fL MCH 27.1 (25.0-34.0) pg MCHC 32.1 (32.0-36.0) g/dL RDW Std Deviation 45.1 (36.4-46.3) fL RDW Coeff of Linda 14.6 H (11.5-14.5) % Plt Count 213 (130-400) K/uL MPV 11.2 (9.4-12.4) fL Immature Gran % (Auto) % Neut % (Auto) % Lymph % (Auto) % [place] % (Auto) % Eos % (Auto) % Baso % (Auto) % Neut # (Auto) (1.40-6.50) K/uL Lymph # (Auto) (1.20-3.40) K/uL [place] # (Auto) (0.11-0.59) K/uL Eos # (Auto) (0.00-0.50) K/uL Baso # (Auto) (0.00-0.20) K/uL Immature Gran # (Auto) (0.01-0.20) K/uL Sodium 138 (136-145) mmol/L Potassium 4.4 (3.5-5.1) mmol/L Chloride 105 (98-107) mmol/L Carbon Dioxide 26 (21-32) mmol/L Anion Gap 7 (3-11) BUN 9 (6-23) mg/dl Creatinine 0.57 L (0.6-1.2) mg/dl Est Cr Clr Drug Dosing Not Reportable Est GFR ( Amer) 147.2 ml/min Est GFR (Non-Af Amer) 127.0 ml/min BUN/Creatinine Ratio 15.8 (10-20) Glucose 95 (70-99(Fasting)) mg/dl Calcium 9.5 (8.6-10.3) mg/dl Total Bilirubin 0.4 (0.2-1.0) mg/dl AST 24 (13-39) U/L ALT 17 (7-52) U/L Alkaline Phosphatase 237 H (34-104) U/L Total Protein 6.5 (6.0-8.3) gm/dl Albumin 3.7 (3.4-5.0) gm/dl Globulin 2.8 (2.5-4.0) gm/dl Albumin/Globulin Ratio 1.3 (0.9-2) Ur Random Creatinine 64.9 mg/dl U Random Total Protein 11.9 (0-11.9) mg/dl Protein/Creatinin Ratio 0.2 (0-0.2) Blood Type O Positive Cancelled Antibody Screen NEGATIVE Cancelled 05/17/23 05/18/23 Range/Units 06:01 06:07 WBC 18.97 H 12.53 H (4.8-10.8) K/ul RBC 3.47 L 3.21 L (4.20-5.40) M/uL Hgb 9.6 L D 8.9 L (12.0-16.0) g/dl Hct 29.0 L 26.8 L (37.0-47.0) % MCV 83.6 83.5 (80.0-100.0) fL MCH 27.7 27.7 (25.0-34.0) pg MCHC 33.1 33.2 (32.0-36.0) g/dL RDW Std Deviation 45.8 46.3 (36.4-46.3) fL RDW Coeff of Linda 15.1 H 15.1 H (11.5-14.5) % Plt Count 168 156 (130-400) K/uL MPV 12.1 11.4 (9.4-12.4) fL Immature Gran % (Auto) 0.7 1.1 % Neut % (Auto) 83.3 73.7 % Lymph % (Auto) 7.7 14.8 % Hamlin % (Auto) 8.1 9.1 % Eos % (Auto) 0.0 1.1 % Baso % (Auto) 0.2 0.2 % Neut # (Auto) 15.79 H 9.22 H (1.40-6.50) K/uL Lymph # (Auto) 1.46 1.86 (1.20-3.40) K/uL Hamlin # (Auto) 1.54 H 1.14 H (0.11-0.59) K/uL Eos # (Auto) 0.00 0.14 (0.00-0.50) K/uL Baso # (Auto) 0.04 0.03 (0.00-0.20) K/uL Immature Gran # (Auto) 0.14 0.14 (0.01-0.20) K/uL Sodium (136-145) mmol/L Potassium (3.5-5.1) mmol/L Chloride (98-107) mmol/L Carbon Dioxide (21-32) mmol/L Anion Gap (3-11) BUN (6-23) mg/dl Creatinine (0.6-1.2) mg/dl Est Cr Clr Drug Dosing Est GFR ( Amer) ml/min Est GFR (Non-Af Amer) ml/min BUN/Creatinine Ratio (10-20) Glucose (70-99(Fasting)) mg/dl Calcium (8.6-10.3) mg/dl Total Bilirubin (0.2-1.0) mg/dl AST (13-39) U/L ALT (7-52) U/L Alkaline Phosphatase (34-104) U/L Total Protein (6.0-8.3) gm/dl Albumin (3.4-5.0) gm/dl Globulin (2.5-4.0) gm/dl Albumin/Globulin Ratio (0.9-2) Ur Random Creatinine mg/dl U Random Total Protein (0-11.9) mg/dl Protein/Creatinin Ratio (0-0.2) Blood Type Antibody Screen PE: General: Alert, orientedx3, NAD CVS: S1S2 RRR Lungs; CTAB Abd: soft, NT, ND, BS+, fundus firm, below Umbilicus Incision: Clean, dry, intact Perineum intact, Lochia rubra minimal Ext; NT, edema is better, Homans sign neg/neg AP: 27 yo s/p C Section, pod# 3 VSS Afebrile doing well Continue routine postop care Encourage ambulation, PO intake All questions were answered D/C home , f/u in office Results & Data Vital Signs (Past 12 Hours) Vital Signs Temp Pulse Resp BP Pulse Ox O2 Del Method 05/19/23 04:30 36.6 C 65 137/84 05/18/23 23:05 36.5 C 77 18 129/90 100 Room Air 05/18/23 19:40 36.6 C 80 18 119/74 97 Room Air
[2023-05-19] MEDS: DOCUSATE SODIUM 100 MG CAP PO SCH (08:33)
[2023-05-19] MEDS: SIMETHICONE 80 MG CHEW PO SCH (08:33)
[2023-05-19] MEDS: PRENATAL VITAMIN 1 TAB PO SCH (08:33)
[2023-05-19] MEDS: FERROUS SULFATE 325 MG TAB PO SCH (08:34)
== END 2023-05-19 12:14 | disposition home or self-care (01) | DRG 788 ==
LOC: 4S1 12:06 → 4E2 05-17 01:14

== ENCOUNTER 2025-03-05 06:06 | Inpatient (IN) ==
[2025-03-05] MEDS ORDERED: LIDOCAINE 1% LOCAL 20 ML VIAL INFIL PRN (07:13)
[2025-03-05] MEDS ORDERED: OXYTOCIN 30 UNITS/NSS 30 UNITS/500 ML BAG IV PRN ×2 (07:13→17:31)
--- NOTE | 2025-03-05 07:21 | History & Physical Report ---
Date of Service March 05, 2025 Assessment & Plan (1) : Plan: TOLAC planned History of Present Illness Chief Complaint: labor Primary Care Provider: NO PCP 29 F P0000 at 40.3 weeks presents to L&D in labor and feeling wet. She previously had a with a prior for arrest of descent due to macrosomia. She wants to try to this . I gave her the risks and benefits of trial of labor and she is consenting to have TOLAC. Allergies Allergy/AdvReac Type Severity Reaction Status Date / Time No Known Allergies Allergy Verified 03/05/25 07:01 Home Medications Medication Instructions Recorded Confirmed Type vits no.124-ferrous fum 1 tab PO DAILY 05/15/23 05/15/23 History 27 mg iron-folic acid 800 mcg tablet ( Vitamin) ibuprofen 600 mg tablet 600 mg PO Q6 #60 tabs 05/17/23 Rx iron,carbonyl 65 mg-vitamin C 125 1 tab PO BID #30 tabs 05/17/23 05/15/23 Rx mg tablet,delayed release (Vitron-C) vits no.124-ferrous fum 1 tab PO DAILY@08 #60 tabs 05/17/23 Rx 27 mg iron-folic acid 800 mcg tablet ( Vitamin) docusate sodium 100 mg capsule 100 mg PO DAILY@08,21 #60 caps 05/19/23 Rx oxycodone-acetaminophen 5 mg-325 1 tab PO Q4 PRN pain #20 tabs 05/19/23 Rx mg tablet (Percocet) simethicone 80 mg chewable tablet 80 mg PO DAILY@08,13,17,21 #30 tabs 05/19/23 Rx (Gas Relief (simethicone)) Patient History Medical History No known health problems Surgical History No history of previous surgery Family History Mother Hypertension Asthma Father Hypertension Uncle Diabetes Social History Smoking Status: Never smoker Hx Alcohol Use: No Hx Substance Use: No Preferred Language: Korean Communication Ability: Effective President Financial Institution Required: No Beliefs That Will Affect Care: None marital status: Current Living Situation: Spouse Current Living Situation Comment: 1 son Feels Safe at Home: Yes Safety Concerns: Feels Safe At This Time Assistive Devices: None OB History for arrest of descent [employer]CT [employer] History neg Physical Exam Constitutional: WD/WN, vitals as above Eyes: PERRL, conjunctivae normal, anicteric sclerae Respiratory: normal respiratory effort Cardiovascular: Rate/Rhythm: regular rate and regular rhythm Gastrointestinal (Abdomen): Inspection/Auscultation: abdomen normal to ins pection Musculoskeletal: Extremities: extremities normal to inspection Skin: no rashes, warm and dry Neurologic: patellar DTR's 2+ bilat, sensation intact Psychiatric: A+Ox3, euthymic affect Genitourinary: OB Exam Abdomen: + fundal height and + vertex Manual OB Exam: + cervical dilation 4 cm, + cervical effacement 70% and 80% and + station -1 OB Exam Monitor Tracing: + external FHT monitor used, + external uterine monitor used, + category I and + normal FHT variability EFW 8 lbs Results & Data Vital Signs (Past 12 Hours) Vital Signs Temp Pulse Resp BP 03/05/25 07:04 90 124/77 03/05/25 06:25 99 H 131/79 03/05/25 06:20 36.5 C 18 Code Status & VTE Plan VTE Prophylaxis Plan VTE Prophylaxis will be ordered: No Monitoring External Monitor Cat 1 (1) Weeks of gestation: 39 weeks Qualified Code(s): Z3A.39 - 39 weeks gestation of
[2025-03-05 07:41] LABS: Hematocrit (blood only) 35.0 % (37.0-47.0); Hemoglobin 11.2 g/dl (12.0-16.0); Mean Corpuscular Hemoglobin 26.7 pg (25.0-34.0); Mean Corpuscular Volume 83.3 fL (80.0-100.0); Platelet Count 185 K/uL (130-400); RDW Standard Deviation 45.1 fL (36.4-46.3); Red Blood Count 4.20 M/uL (4.20-5.40); White Blood Count 9.00 K/ul (4.8-10.8)
--- NOTE | 2025-03-05 10:28 | Obstetrical Progress Note ---
Date of Service March 05, 2025 Assessment & Plan Admission and Anticipated Discharge Date Admission Date: March 05, 2025 Subjective Patient is seen and examined. Reviewed her records and confirmed her. She was known to me from prior when I performed her primary due to arrest of descent and active phase of labor/second stage. she has been wanting TOLAC/ and wanted to wait until 42 weeks. She was originally scheduled for induction of labor for next week. She started to have contractions around 2 AM when she could get rest in between. Woke up at 5 AM with more intense contractions, she has been feeling them every 3 to 4 minutes. she plans to have unmedicated , wants to avoid Pitocin, AROM if possible. Plans to stand or sit on birthing ball and move around the bed is much as she can. She was checked by her nurse when she first arrived this morning and her cervix was 4, 75%, -1, I rechecked her cervix now and it is 5 to 6 cm, 75 % effaced, head is -1 with a bulging bag. patient is happy to hear the cervical change, Continue monitor closely, All questions were answered. Results & Data Vital Signs (Past 12 Hours) Vital Signs Temp Pulse Resp BP 03/05/25 07:05 36.9 C 90 18 124/77 03/05/25 07:04 90 124/77 03/05/25 06:25 99 H 131/79 03/05/25 06:20 36.5 C 18
--- NOTE | 2025-03-05 18:22 | Obstetrical Progress Note ---
Date of Service March 05, 2025 Assessment & Plan Admission and Anticipated Discharge Date Admission Date: March 05, 2025 Subjective Patient is reevaluated. She has been standing and listening to the music. Contractions spaced out for a while and then started to come back again she feels them every 2 to 3 minutes, states that they are manageable. She rates pain 3-4 out of 10. No leakage of fluid or vaginal bleeding. She reports good movements. heart rate had been category 1, contractions are difficult to trace due to she is standing and moving. She accepted cervical check, cervix is 6 cm dilated, 70% effaced, head is -1 station, bulging bag. Discussed the findings and no significant change since this morning offered her oxytocin and or AROM. She declined oxytocin but she a ccepted AROM. AROM is done by myself, clear fluid was obtained. All questions were answered. Continue to monitor closely. Results & Data Vital Signs (Past 12 Hours) Vital Signs Temp Pulse Resp BP 03/05/25 16:32 18 03/05/25 16:32 36.9 C 18 03/05/25 14:03 18 03/05/25 14:03 36.9 C 18 03/05/25 12:39 96 H 18 110/68 03/05/25 11:12 110 H 132/81 03/05/25 11:11 20 03/05/25 11:11 36.7 C 20 03/05/25 07:05 36.9 C 90 18 124/77 03/05/25 07:04 90 124/77 03/05/25 06:25 99 H 131/79
--- NOTE | 2025-03-05 21:24 | Obstetrical Progress Note ---
Date of Service March 05, 2025 Assessment & Plan Admission and Anticipated Discharge Date Admission Date: March 05, 2025 Subjective patient states contractions get more stronger feels on every 3 to 4 minutes, pain level is 5-6 out of 10. Her cervix was just checked by her nurse and it was 7 cm dilated, 90% effaced, head is at -1 station. [place]ascade registering contractions every 3 to 8 minutes, heart rate had been category 1, Discussed augmentation with low-dose Pitocin, patient does not want it, wants to try to lay down on her right side with peanut ball between legs, Continue to monitor closely Results & Data Vital Signs (Past 12 Hours) Vital Signs Temp Pulse Resp BP 03/05/25 19:05 36.5 C 92 H 18 129/76 03/05/25 19:04 92 H 129/76 03/05/25 18:44 91 H 133/84 03/05/25 18:21 36.9 C 03/05/25 16:32 18 03/05/25 16:32 36.9 C 18 03/05/25 14:03 18 03/05/25 14:03 36.9 C 18 03/05/25 12:39 96 H 18 110/68 03/05/25 11:12 110 H 132/81 03/05/25 11:11 20 03/05/25 11:11 36.7 C 20
--- NOTE | 2025-03-05 21:27 | Anesthesia Procedure Note ---
Date of Service March 05, 2025 Anesthesia Post Epidural Note Vital Signs Vital Signs: Temp Pulse Resp BP 36.7 C 92 H 18 129/76 03/05/25 21:01 03/05/25 19:05 03/05/25 21:01 03/05/25 19:05 Notes Mental Status: alert / awake / arousable and participated in evaluation Patient Amnestic to Procedure: No Nausea / Vomiting: adequately controlled Pain: adequately controlled Airway Patency, RR, SpO2: stable & adequate BP & HR: stable & adequate Hydration State: stable & adequate Neuraxial Anesthesia: was administered and sensory block is resolving Anesthetic Complications: no major complications apparent and Pt Satisfied with anesthetic care Epidural: Removed without complications and With tip intact
[2025-03-05] MEDS: LACTATED RINGER'S 1,000 ML IV PRN (21:44)
[2025-03-05] MEDS ORDERED: ROPIVACAINE 0.5% PF 5 MG/ML 20 ML VIAL EPI PRN (21:50)
[2025-03-05] MEDS ORDERED: LIDOCAINE 2% MPF LOCAL 5 ML VIAL EPI PRN (21:50)
[2025-03-05] MEDS ORDERED: NALOXONE HCL 1 MG in SODIUM CHLORIDE 0.9% 1,000 ML IV PRN (21:50)
[2025-03-05] MEDS ORDERED: NALBUPHINE HCL INJ 10 MG/ML AMP IV PRN (21:50)
[2025-03-05] MEDS ORDERED: NALOXONE HCL 0.4 MG/1 ML VIAL/CARP IV PRN (21:50)
[2025-03-05] MEDS ORDERED: diphenhydrAMINE 50 MG/ML VIAL IV PRN (21:50)
[2025-03-05] MEDS ORDERED: SODIUM CHLORIDE 0.9% PF INJ 10 ML VIAL EPI PRN (21:50)
[2025-03-05] MEDS ORDERED: BUPIVACAINE 0.25% PF 30 ML VIAL EPI PRN (21:50)
--- NOTE | 2025-03-05 21:51 | Anesthesiology Consultation ---
Date of Service March 05, 2025 Assessment & Plan (1) Encounter for pre-operative examination: Chart Review Chart Review: Patient NOT seen in Pre Admission Testing and Acceptable Risk for Labor Epidural Consults Requested none History Height/Weight Height: 5 ft 8 in Weight: 82.1 kg Allergies Allergy/AdvReac Type Severity Reaction Status Date / Time No Known Allergies Allergy Verified 03/05/25 07:01 Medications Home Medications Medication Instructions Recorded Confirmed Last Taken vits no.124-ferrous fum 1 tab PO DAILY 05/15/23 05/15/23 05/14/23 27 mg iron-folic acid 800 mcg tablet ( Vitamin) ibuprofen 600 mg tablet 600 mg PO Q6 #60 tabs 05/17/23 Unknown iron,carbonyl 65 mg-vitamin C 125 1 tab PO BID #30 tabs 05/17/23 05/15/23 05/14/23 mg tablet,delayed release (Vitron-C) vits no.124-ferrous fum 1 tab PO DAILY@08 #60 tabs 05/17/23 Unknown 27 mg iron-folic acid 800 mcg tablet ( Vitamin) docusate sodium 100 mg capsule 100 mg PO DAILY@08,21 #60 caps 05/19/23 Unknown oxycodone-acetaminophen 5 mg-325 1 tab PO Q4 PRN pain #20 tabs 05/19/23 Unknown mg tablet (Percocet) simethicone 80 mg chewable tablet 80 mg PO DAILY@08,13,17,21 #30 tabs 05/19/23 Unknown (Gas Relief (simethicone)) Active Medications Generic Name Dose Route Start Last Admin Trade Name Freq PRN Reason Stop Dose Admin Lactated Ringer's 1,000 mls @ 125 mls/hr 03/05/25 07:13 03/05/25 21:44 Lr IV 03/07/25 07:12 999 mls/hr .Q8H PRN Administration L&D Protocol Protocol Past Medical History Medical History (Updated 03/05/25 @ 21:53 by Duarte Littlejohn MD) Encounter for pre-operative examination No known health problems Past Family History Family History Mother Hypertension Asthma Father Hypertension Uncle Diabetes Past Surgical History Surgical History (Updated 03/05/25 @ 21:52 by Duarte Littlejohn MD) History of primary section Social History Smoking Status: Never smoker Hx Alcohol Use: No Hx Substance Use: No Physical Exam Vital Signs Last Vital Signs Temp 36.7 C 03/05/25 21:01 Pulse 96 H 03/05/25 22:13 Resp 18 03/05/25 21:01 BP 123/75 03/05/25 22:13 Pulse Ox 100 03/05/25 22:11 Testing Laboratory Results 03/05/25 07:21 Blood Type O Positive 03/05/25 07:21 Antibody Screen NEGATIVE 03/05/25 07:21
[2025-03-05] MEDS: fentANYL 2 MCG/ML BUPIVacaine 0.125%-NSS 100ML BAG EPI PRN (22:15)
[2025-03-05] MEDS: BUPIVACAINE 0.25% PF 30 ML VIAL ONE (22:18)
[2025-03-05] MEDS: LIDOCAINE 2%/EPINEPHRINE 1:200,000 20 ML PF ONE (22:18)
[2025-03-05] MEDS: SODIUM CHLORIDE 0.9% PF INJ 10 ML VIAL ONE (22:19)
[2025-03-05] MEDS: fentANYL 2 MCG/ML BUPIVacaine 0.125%-NSS 100ML BAG ONE (22:19)
[2025-03-05] MEDS ORDERED: LIDOCAINE 2%/EPINEPHRINE 1:200,000 20 ML PF ONE (23:44)
[2025-03-05] MEDS ORDERED: ROPIVACAINE 0.5% 5 MG/ML 30 ML VIAL ONE (23:44)
[2025-03-06] MEDS ORDERED: NURSING L&D Epidural Breakthrough Pain Update ONE (03:27)
[2025-03-06] MEDS: ONDANSETRON INJ 2 MG/ML 2 ML VIAL IV PRN (06:01)
--- NOTE | 2025-03-06 06:53 | Obstetrical Progress Note ---
Date of Service March 06, 2025 Assessment & Plan Admission and Anticipated Discharge Date Admission Date: March 05, 2025 Subjective Patient and up getting epidural after trial of labor without epidural until about 10 PM last night. She got some relief and then contractions started to be painful again when she had epidural redosed by anesthesiologist. Cervix slowly progressed to full dilatation around 4 AM Without augmentation with oxytocin since patient did not want to use any of oxytocin during labor. She pushed between 4:15-6:15 a.m. with good efforts. during second stage her contractions were regular every 1 to 2 minutes. Head at +2 station with caput and occiput posterior, I attempted internal manual rotation but,head goes back to occipitoposterior position. Patient has been leaking clear fluids while pushing. heart rate had been category 1. Patient became very painful for send of pushing and started to cry I recommended since there is no change in the head station despite regular contractions and good effort with pushes, patient wanted to get pain relief first and then decide. Anesthesia is seeing her now. Continue to monitor closely. Results & Data Vital Signs (Past 12 Hours) Vital Signs Temp Pulse Resp BP Pulse Ox 03/06/25 06:46 100 03/06/25 06:46 119 H 03/06/25 06:46 97 H 125/73 03/06/25 06:41 104 H 123/70 99 03/06/25 06:39 92 H 124/69 03/06/25 06:37 109 H 119/89 03/06/25 06:36 104 H 98 03/06/25 06:35 108 H 115/58 L 03/06/25 06:31 110 H 98 03/06/25 06:30 20 03/06/25 06:30 20 03/06/25 06:26 114 H 98 03/06/25 06:21 97 03/06/25 06:21 111 H 03/06/25 06:21 105 H 106/65 03/06/25 06:16 101 H 98 03/06/25 06:11 129 H 97 03/06/25 06:06 146 H 97 03/06/25 06:01 116 H 97 03/06/25 05:56 121 H 97 03/06/25 05:51 118 H 97 03/06/25 05:46 145 H 99 03/06/25 05:41 109 H 97 03/06/25 05:38 111 H 94 03/06/25 05:36 131 H 98 03/06/25 05:31 107 H 96 03/06/25 05:30 20 03/06/25 05:30 20 03/06/25 05:26 109 H 96 03/06/25 05:21 100 H 95 03/06/25 05:16 102 H 94 03/06/25 05:11 133 H 99 03/06/25 05:06 125 H 100 03/06/25 05:01 109 H 99 03/06/25 05:00 18 03/06/25 05:00 36.9 C 18 03/06/25 04:56 116 H 98 03/06/25 04:51 129 H 121/56 L 95 03/06/25 04:46 99 H 98 03/06/25 04:41 107 H 99 03/06/25 04:36 139 H 98 03/06/25 04:31 122 H 99 03/06/25 04:30 20 03/06/25 04:30 20 03/06/25 04:26 97 H 99 03/06/25 04:21 115 H 99 03/06/25 04:16 97 H 100 03/06/25 04:11 94 H 100 03/06/25 04:06 111 H 100 03/06/25 04:01 104 H 100 03/06/25 04:00 18 03/06/25 04:00 18 03/06/25 03:56 108 H 100 03/06/25 03:52 95 H 147/60 H 03/06/25 03:51 97 H 99 03/06/25 03:46 94 H 98 03/06/25 03:45 94 H 93 03/06/25 03:41 96 H 97 03/06/25 03:36 85 121/63 98 03/06/25 03:31 97 H 97 03/06/25 03:26 95 H 98 03/06/25 03:25 18 03/06/25 03:25 37.0 C 18 03/06/25 03:21 90 100 03/06/25 03:16 88 97 03/06/25 03:11 93 H 98 03/06/25 03:10 98 H 93 03/06/25 03:06 99 03/06/25 03:06 90 03/06/25 03:06 92 H 108/57 L 03/06/25 03:01 98 H 98 03/06/25 02:56 93 H 95 03/06/25 02:52 96 H 101/55 L 03/06/25 02:51 91 H 98 03/06/25 02:46 88 97 03/06/25 02:41 90 97 03/06/25 02:36 98 H 107/54 L 99 03/06/25 02:31 90 100 03/06/25 02:30 16 03/06/25 02:30 16 03/06/25 02:26 83 99 03/06/25 02:21 95 H 103/51 L 98 03/06/25 02:16 87 98 03/06/25 02:11 82 98 03/06/25 02:06 98 03/06/25 02:06 83 03/06/25 02:06 91 H 103/53 L 03/06/25 02:01 95 H 99 03/06/25 02:00 18 03/06/25 02:00 18 03/06/25 01:56 114 H 100 03/06/25 01:51 98 H 100 03/06/25 01:50 92 H 121/69 03/06/25 01:46 98 H 100 03/06/25 01:41 102 H 99 03/06/25 01:36 100 H 116/63 99 03/06/25 01:31 103 H 99 03/06/25 01:30 18 03/06/25 01:30 18 03/06/25 01:26 86 99 03/06/25 01:22 93 H 118/65 03/06/25 01:21 100 H 98 03/06/25 01:16 99 H 100 03/06/25 01:11 95 H 100 03/06/25 01:06 91 H 100 03/06/25 01:05 82 119/66 03/06/25 01:01 98 H 98 03/06/25 01:00 18 03/06/25 01:00 37.0 C 18 03/06/25 00:56 93 H 97 03/06/25 00:51 88 97 03/06/25 00:50 92 H 99/58 L 03/06/25 00:46 90 96 03/06/25 00:41 87 97 03/06/25 00:36 97 H 100/58 L 98 03/06/25 00:31 85 98 03/06/25 00:30 18 03/06/25 00:30 18 03/06/25 00:26 90 100 03/06/25 00:21 85 100 03/06/25 00:20 88 104/58 L 03/06/25 00:16 96 H 100 03/06/25 00:11 98 H 100 03/06/25 00:06 99 H 106/60 98 03/06/25 00:03 94 H 106/67 03/06/25 00:01 92 H 100 03/06/25 00:00 18 03/06/25 00:00 18 03/05/25 23:58 88 107/55 L 03/05/25 23:56 95 03/05/25 23:56 84 03/05/25 23:56 84 94 03/05/25 23:54 81 108/57 L 03/05/25 23:51 86 97 03/05/25 23:50 79 110/53 L 03/05/25 23:49 76 114/56 L 03/05/25 23:46 79 98 03/05/25 23:41 81 99 03/05/25 23:36 100 03/05/25 23:36 85 03/05/25 23:36 89 121/85 03/05/25 23:31 81 100 03/05/25 23:30 18 03/05/25 23:30 18 03/05/25 23:26 83 99 03/05/25 23:21 99 03/05/25 23:21 81 03/05/25 23:21 79 126/70 03/05/25 23:16 74 97 03/05/25 23:11 78 100 03/05/25 23:06 81 125/81 100 03/05/25 23:01 82 100 03/05/25 23:00 18 03/05/25 23:00 36.8 C 18 03/05/25 22:56 84 100 03/05/25 22:51 80 100 03/05/25 22:50 73 118/58 L 03/05/25 22:46 73 100 03/05/25 22:44 81 118/58 L 03/05/25 22:41 78 100 03/05/25 22:36 77 100 03/05/25 22:35 65 119/58 L 03/05/25 22:31 74 100 03/05/25 22:30 18 03/05/25 22:30 18 03/05/25 22:29 83 119/57 L 03/05/25 22:26 76 122/59 L 100 03/05/25 22:25 81 116/54 L 03/05/25 22:23 81 133/61 03/05/25 22:21 100 03/05/25 22:21 82 03/05/25 22:21 85 122/60 03/05/25 22:19 91 H 121/58 L 03/05/25 22:17 83 140/84 03/05/25 22:16 86 100 03/05/25 22:15 103 H 142/70 H 03/05/25 22:13 96 H 123/75 03/05/25 22:11 98 H 100 03/05/25 22:06 92 H 100 03/05/25 22:01 97 H 100 03/05/25 21:01 18 03/05/25 21:01 36.7 C 18 03/05/25 19:05 36.5 C 92 H 18 129/76 03/05/25 19:04 92 H 129/76
--- NOTE | 2025-03-06 06:55 | Anesthesia Procedure Note ---
Date of Service March 06, 2025 Anesthesia Epidural Re-Dose Vital Signs Temp Pulse Resp BP Pulse Ox 36.9 C 93 H 20 132/59 L 100 03/06/25 05:00 03/06/25 06:51 03/06/25 06:30 03/06/25 06:51 03/06/25 06:46 Notes Pain Intensity: 8 Dilatation (cm): 10.0 Effacement (%): 100 Called by nursing to evaluate epidural as the patient is having increased pain. The epidural was re-dosed with the following medications (all medications via epidural route) after negative aspiration of the epidural catheter for CSF/HEME. 5ml of 2% LIdocaine mixed with 0.5% ropivicaine. This was done at 2300 last evening with excellent relief. Called at 0630 this morning as patient with sig pain. She had pushed for two hours without much progress. Again bolused her with above mix. Pain not much improved. After Epidural Re-Dose Mental Status: alert / awake / arousable Pain: improving with treatment Airway Patency, RR, SpO2: stable & adequate BP & HR: stable & adequate
[2025-03-06] MEDS ORDERED: DEXAMETHASONE SOD INJ 4 MG/ML VIAL ONE (07:06)
[2025-03-06] MEDS ORDERED: PHENYLEPHRINE HCL 25 MG/250 ML NSS IV ONE (07:06)
[2025-03-06] MEDS ORDERED: PHENYLEPHRINE 100MCG/ML 5ML SYR ONE (07:06)
[2025-03-06] MEDS ORDERED: ONDANSETRON INJ 2 MG/ML 2 ML VIAL ONE ×2 (07:06→08:41)
[2025-03-06] MEDS ORDERED: SUCCINYLCHOLINE CHLORIDE 20 MG/ML 10 ML VIAL IV ONE (07:06)
[2025-03-06] MEDS ORDERED: PROPOFOL IV EMULSION 10 MG/ML 20 ML VIAL IV ONE (07:06)
--- NOTE | 2025-03-06 07:11 | Obstetrical Progress Note ---
Date of Service March 06, 2025 Assessment & Plan Admission and Anticipated Discharge Date Admission Date: March 05, 2025 Subjective Anesthesia redosed her. She has not gotten any pain relief she decided for C- section. She understand the risks and benefits and signed informed consent. heart rate category 1, Continue monitor closely will proceed with repeat . All questions were answered. Results & Data Vital Signs (Past 12 Hours) Vital Signs Temp Pulse Resp BP Pulse Ox 03/06/25 07:06 97 H 99 03/06/25 07:01 105 H 99 03/06/25 07:00 18 03/06/25 07:00 18 03/06/25 06:59 96 H 140/61 03/06/25 06:57 91 H 133/61 03/06/25 06:56 102 H 99 03/06/25 06:55 96 H 139/66 03/06/25 06:53 90 137/62 03/06/25 06:52 100 H 94 03/06/25 06:51 97 03/06/25 06:51 91 H 03/06/25 06:51 93 H 132/59 L 03/06/25 06:50 96 H 128/65 03/06/25 06:46 100 03/06/25 06:46 119 H 03/06/25 06:46 97 H 125/73 03/06/25 06:41 104 H 123/70 99 03/06/25 06:39 92 H 124/69 03/06/25 06:37 109 H 119/89 03/06/25 06:36 104 H 98 03/06/25 06:35 108 H 115/58 L 03/06/25 06:31 110 H 98 03/06/25 06:30 20 03/06/25 06:30 20 03/06/25 06:26 114 H 98 03/06/25 06:21 97 03/06/25 06:21 111 H 03/06/25 06:21 105 H 106/65 03/06/25 06:16 101 H 98 03/06/25 06:11 129 H 97 03/06/25 06:06 146 H 97 03/06/25 06:01 116 H 97 03/06/25 05:56 121 H 97 03/06/25 05:51 118 H 97 03/06/25 05:46 145 H 99 03/06/25 05:41 109 H 97 03/06/25 05:38 111 H 94 03/06/25 05:36 131 H 98 03/06/25 05:31 107 H 96 03/06/25 05:30 20 03/06/25 05:30 20 03/06/25 05:26 109 H 96 03/06/25 05:21 100 H 95 03/06/25 05:16 102 H 94 03/06/25 05:11 133 H 99 03/06/25 05:06 125 H 100 03/06/25 05:01 109 H 99 03/06/25 05:00 18 03/06/25 05:00 36.9 C 18 03/06/25 04:56 116 H 98 03/06/25 04:51 129 H 121/56 L 95 03/06/25 04:46 99 H 98 03/06/25 04:41 107 H 99 03/06/25 04:36 139 H 98 03/06/25 04:31 122 H 99 03/06/25 04:30 20 03/06/25 04:30 20 03/06/25 04:26 97 H 99 03/06/25 04:21 115 H 99 03/06/25 04:16 97 H 100 03/06/25 04:11 94 H 100 03/06/25 04:06 111 H 100 03/06/25 04:01 104 H 100 03/06/25 04:00 18 03/06/25 04:00 18 03/06/25 03:56 108 H 100 03/06/25 03:52 95 H 147/60 H 03/06/25 03:51 97 H 99 03/06/25 03:46 94 H 98 03/06/25 03:45 94 H 93 03/06/25 03:41 96 H 97 03/06/25 03:36 85 121/63 98 03/06/25 03:31 97 H 97 03/06/25 03:26 95 H 98 03/06/25 03:25 18 03/06/25 03:25 37.0 C 18 03/06/25 03:21 90 100 03/06/25 03:16 88 97 03/06/25 03:11 93 H 98 03/06/25 03:10 98 H 93 03/06/25 03:06 99 03/06/25 03:06 90 03/06/25 03:06 92 H 108/57 L 03/06/25 03:01 98 H 98 03/06/25 02:56 93 H 95 03/06/25 02:52 96 H 101/55 L 03/06/25 02:51 91 H 98 03/06/25 02:46 88 97 03/06/25 02:41 90 97 03/06/25 02:36 98 H 107/54 L 99 03/06/25 02:31 90 100 03/06/25 02:30 16 03/06/25 02:30 16 03/06/25 02:26 83 99 03/06/25 02:21 95 H 103/51 L 98 03/06/25 02:16 87 98 03/06/25 02:11 82 98 03/06/25 02:06 98 03/06/25 02:06 83 03/06/25 02:06 91 H 103/53 L 03/06/25 02:01 95 H 99 03/06/25 02:00 18 03/06/25 02:00 18 03/06/25 01:56 114 H 100 03/06/25 01:51 98 H 100 03/06/25 01:50 92 H 121/69 03/06/25 01:46 98 H 100 03/06/25 01:41 102 H 99 03/06/25 01:36 100 H 116/63 99 03/06/25 01:31 103 H 99 03/06/25 01:30 18 03/06/25 01:30 18 03/06/25 01:26 86 99 03/06/25 01:22 93 H 118/65 03/06/25 01:21 100 H 98 03/06/25 01:16 99 H 100 03/06/25 01:11 95 H 100 03/06/25 01:06 91 H 100 03/06/25 01:05 82 119/66 03/06/25 01:01 98 H 98 03/06/25 01:00 18 03/06/25 01:00 37.0 C 18 03/06/25 00:56 93 H 97 03/06/25 00:51 88 97 03/06/25 00:50 92 H 99/58 L 03/06/25 00:46 90 96 03/06/25 00:41 87 97 03/06/25 00:36 97 H 100/58 L 98 03/06/25 00:31 85 98 03/06/25 00:30 18 03/06/25 00:30 18 03/06/25 00:26 90 100 03/06/25 00:21 85 100 03/06/25 00:20 88 104/58 L 03/06/25 00:16 96 H 100 03/06/25 00:11 98 H 100 03/06/25 00:06 99 H 106/60 98 03/06/25 00:03 94 H 106/67 03/06/25 00:01 92 H 100 03/06/25 00:00 18 03/06/25 00:00 18 03/05/25 23:58 88 107/55 L 03/05/25 23:56 95 03/05/25 23:56 84 03/05/25 23:56 84 94 03/05/25 23:54 81 108/57 L 03/05/25 23:51 86 97 03/05/25 23:50 79 110/53 L 03/05/25 23:49 76 114/56 L 03/05/25 23:46 79 98 03/05/25 23:41 81 99 03/05/25 23:36 100 03/05/25 23:36 85 03/05/25 23:36 89 121/85 03/05/25 23:31 81 100 03/05/25 23:30 18 03/05/25 23:30 18 03/05/25 23:26 83 99 03/05/25 23:21 99 03/05/25 23:21 81 03/05/25 23:21 79 126/70 03/05/25 23:16 74 97 03/05/25 23:11 78 100 03/05/25 23:06 81 125/81 100 03/05/25 23:01 82 100 03/05/25 23:00 18 03/05/25 23:00 36.8 C 18 03/05/25 22:56 84 100 03/05/25 22:51 80 100 03/05/25 22:50 73 118/58 L 03/05/25 22:46 73 100 03/05/25 22:44 81 118/58 L 03/05/25 22:41 78 100 03/05/25 22:36 77 100 03/05/25 22:35 65 119/58 L 03/05/25 22:31 74 100 03/05/25 22:30 18 03/05/25 22:30 18 03/05/25 22:29 83 119/57 L 03/05/25 22:26 76 122/59 L 100 03/05/25 22:25 81 116/54 L 03/05/25 22:23 81 133/61 03/05/25 22:21 100 03/05/25 22:21 82 03/05/25 22:21 85 122/60 03/05/25 22:19 91 H 121/58 L 03/05/25 22:17 83 140/84 03/05/25 22:16 86 100 03/05/25 22:15 103 H 142/70 H 03/05/25 22:13 96 H 123/75 03/05/25 22:11 98 H 100 03/05/25 22:06 92 H 100 03/05/25 22:01 97 H 100 03/05/25 21:01 18 03/05/25 21:01 36.7 C 18
[2025-03-06] MEDS: TERBUTALINE SULFATE 1 MG/ML VIAL SQ ONE (07:12)
[2025-03-06] MEDS: AZITHROMYCIN 500 MG/255 ML BAG IV SCH (07:20)
[2025-03-06] MEDS: CITRIC ACID/SODIUM CITRATE 15 ML UDC PO SCH (07:22)
[2025-03-06] MEDS ORDERED: OXYTOCIN 10 UNITS/ML VIAL ONE (07:46)
[2025-03-06] MEDS ORDERED: HYDROmorphone INJ 2 MG/ML SYR/VIAL ONE (08:01)
[2025-03-06] MEDS: OXYTOCIN 10 UNITS/ML VIAL IM ONE (08:07)
[2025-03-06] MEDS ORDERED: ROPIVACAINE 0.5% 5 MG/ML 30 ML VIAL ONE (08:07)
[2025-03-06] MEDS ORDERED: MoRPHine SULFATE PF 1 MG/ML 10 ML AMP/VIAL ONE (08:08)
[2025-03-06] MEDS ORDERED: PROMETHAZINE 12.5 MG/50.5 ML BAG IV PRN (08:59)
[2025-03-06] MEDS ORDERED: HYDROmorphone INJ 0.5 MG/0.5 ML SYR IV PRN ×2 (08:59→09:24)
[2025-03-06] MEDS ORDERED: diphenhydrAMINE Capsule 25 MG CAP PO PRN (08:59)
[2025-03-06] MEDS ORDERED: diphenhydrAMINE 50 MG/ML VIAL IV PRN ×2 (08:59→09:24)
[2025-03-06] MEDS ORDERED: BENZOCAINE 20% SPRY 85 APPLN/85 GM CAN EXT PRN (08:59)
[2025-03-06] MEDS ORDERED: HYDROCORTISONE ACETATE 25 MG SUPP PR PRN (08:59)
[2025-03-06] MEDS ORDERED: MAGNESIUM HYDROXIDE SUSP 30 ML UDC PO PRN (08:59)
[2025-03-06] MEDS ORDERED: CALCIUM CARBONATE 500 MG CHEWABLE TAB PO PRN (08:59)
[2025-03-06] MEDS ORDERED: SENNA 8.6 MG TAB PO PRN (08:59)
[2025-03-06] MEDS ORDERED: ONDANSETRON INJ 2 MG/ML 2 ML VIAL IV PRN ×2 (08:59→09:24)
[2025-03-06] MEDS ORDERED: LACTATED RINGER'S 1,000 ML IV SCH (09:00)
[2025-03-06] MEDS: OXYTOCIN 20 UNITS/LR 1,002 ML IV SCH (09:00)
--- NOTE | 2025-03-06 09:06 | Operative Report ---
Post Operative Report Pre & Post Diagnosis Operation Date: 03/06/25 07:30 <No data on this case meets the specified criteria> Pre-Op diagnosis: Patient is a 29-year-old -0-0-1 at 40 weeks and 5 days of gestation with history of prior failed Tolak/ arrest of descent during second stage of labor, postop diagnosis: same and macrosomia I identified the patient and participated in the time-out.: Yes Procedure Operation Date: 03/06/25 07:30 <No data on this case meets the specified criteria> repeat low-transverse with financial skin incision Surgeon Reinier Rodriguez MD Wafer Slicer Dr Anderson Estimated Blood Loss 742 Findings Consistent with Post-Op Diagnosis Baby was a viable female infant delivered at 0 7:57 AM Apgars 8/9 weight is 4245 g, Maternal findings normal uterus, fallopian tubes and ovaries. Specimens Placenta, cord Drains Khalil catheter drained 300 mL of urine Anesthesia Type General Complications none Disposition Accompanied Patient To Recovery: Yes Indications patient is a 29-year-old -0-0-1 at 40 weeks and 5 days she was admitted on March 05, 2025 for contractions and in early labor. Patient has a history of prior 2 years ago and she was planning to have TOLAC/ during this she originally scheduled induction of labor for SAMANTHA/ for next week and she will be 41+ weeks. Her cervix was 4 cm dilated, 75% effaced and head was at -1 station she wanted to expectant management without medications, without oxytocin, AROM or epidural. Her cervix progressed slowly to 6 cm in evening when she accepted AROM. she has not received epidural for pain. She done progressed slowly and became fully dilated at 4 AM after which she pushed over 2 hours with no progress in head station. patient was counseled for repeat due to arrest of descent in active stage of labor and suspected macrosomia. She accepted the risks and benefits and signed informed consent. Description of Procedure Patient was taken to operating room where a spinal anesthesia was given without difficulty. She was placed in dorsal supine position with a leftward tilt. She was prepared and draped in usual sterile fashion. A financial skin incision was made and carried through to the underlying layer of fascia with the Bovie. Fascia was incised in the midline and incision was extended laterally with the help of Mckeon scissors. Then the upper aspect of the fascial incision was grasped with 2 Mazin clamps elevated the underlying rectus muscles were dissected off sharply with Mckeon scissors. Same thing was done on the lower incision. Then the muscles were in the midline, peritoneum was identified grasped with 2 pickups and entered sharply with Metzenbaum scissors. Peritoneal incision was extended superior and inferiorly with good visualization of the bladder. The bladder blade was inserted. Vesicouterine peritoneum was identified, grasped with pickups and entered sharply with Metzenbaum scissors, bladder flap was created digitally and bladder blade was reinserted. Uterus was incised in transverse fashion, incision was extended laterally, membr anes were ruptured and clear fluid was obtained. We came across with baby's shoulders. Baby's head was Low in the vagina, it was brought up to the incision with my right hand and delivered through incision without difficulty. then followed by shoulders and body with minimal traction without difficulty. Mouth and nose were suctioned there was dried on the field he was vigorously crying and moving. The cord was clamped times and cut and then the infant was handed off to the pediatric team. turned noted to be Khalil balloon in the lower uterine cavity. It was pulled by our nurse from vagina and came out without difficulty. Then the placenta was delivered manually as intact and complete. Uterus was externalized and cleared of all clots and debris's. Uterine incision was repaired with 0 Vicryl in a running locked fashion, second umbricating layer was placed with the same suture in running locked fashion. Excellent hemostasis achieved. Cul-de-sac and the pelvis was irrigated with warm normal saline and suctioned. Incision was checked of to be hemostatic again. then we checked the bladder integrity it felt full and intact. While Dr. Anderson was watching from abdomen/pelvis I went down between her legs and inserted a new Khalil catheter into the bladder. Then methylene blue was instilled sealed from the Khalil into the bladder while Dr. Anderson was watching that no dye was seen in the pelvis. Bladder was checked to be intact with no dye spillage noted. Her legs were covered again and I will change into sterile gauze again and continued with the procedure with my video library assistant Dr. Anderson. Uterus was returned to the abdomen, parietal peritoneum was reapproximated with 3-0 Vicryl in a running fashion and the muscles were reapproximated in the same suture in a running fashion. All of the fascia and rectus muscles were hemostatic. Rectus fascia was reapproximated with 0 Vicryl starting from both columns meeting in the midline. Subcuticular fat tissue was brought together with 2-0 Vicryl in a running fashion, skin was closed with 4-0 Monocryl in a subcuticular cuticular fashion. The mom and baby tolerated procedure well. Sponge needle instrument count was correct x3. Then I went down to the vagina where there was a small second-degree tear, and repaired with 2-0 Vicryl in a continuous fashion it was oozing minimal blood. It was covered with Yao powder and pack with sponges to be removed later. she was given 2 g of cefazolin before And 500 mg of azithromycin during surgery. No complications happened, I was present during whole procedure. My video library assistant was needed for retraction, hemostasis and aid during delivery of I attest to the content of the Intraoperative Record and any orders documented therein. Any exceptions are noted below.
[2025-03-06] MEDS ORDERED: NALOXONE HCL 1 MG in SODIUM CHLORIDE 0.9% 1,000 ML IV PRN (09:24)
[2025-03-06] MEDS ORDERED: NALOXONE HCL 0.08 MG in SYRINGE 1.8 ML IV PRN (09:24)
[2025-03-06] MEDS ORDERED: MEPERIDINE HCL 25 MG/ML CARP/VIAL IV PRN (09:24)
[2025-03-06] MEDS ORDERED: NALBUPHINE HCL INJ 10 MG/ML AMP IV PRN (09:24)
[2025-03-06] MEDS ORDERED: MoRPHine SULFATE 2 MG/ML CARP IV PRN (09:24)
[2025-03-06] MEDS ORDERED: NALOXONE HCL 0.4 MG/1 ML VIAL/CARP IV PRN (09:24)
[2025-03-06] MEDS ORDERED: PROMETHAZINE 6.25 MG/50.25 ML BAG IV PRN (09:24)
--- NOTE | 2025-03-06 09:25 | Anesthesia Procedure Note ---
Date of Service March 06, 2025 Anesthesia Post Epidural Note Vital Signs Vital Signs: Temp Pulse Resp BP Pulse Ox 36.9 C 105 H 18 126/88 100 03/06/25 05:00 03/06/25 09:21 03/06/25 07:00 03/06/25 09:07 03/06/25 09:21 Pain Intensity Right Hip: Pain Intensity: 9 Notes Mental Status: alert / awake / arousable Nausea / Vomiting: adequately controlled Pain: adequately controlled Airway Patency, RR, SpO2: stable & adequate BP & HR: stable & adequate Hydration State: stable & adequate Neuraxial Anesthesia: was administered and sensory block is resolving Anesthetic Complications: no major complications apparent and Pt Satisfied with anesthetic care Epidural: Removed without complications and With tip intact
--- NOTE | 2025-03-06 09:25 | Anesthesiology Progress Note ---
Date of Service March 06, 2025 Anesthesia Post Procedure Vital Signs Vital Signs: Temp Pulse Resp BP Pulse Ox 03/06/25 09:21 105 H 100 03/06/25 09:16 110 H 100 03/06/25 09:11 114 H 100 03/06/25 09:07 113 H 126/88 03/06/25 09:06 117 H 100 03/06/25 07:31 135 H 100 03/06/25 07:29 141 H 124/65 03/06/25 07:26 138 H 99 03/06/25 07:21 131 H 100 03/06/25 07:16 115 H 100 03/06/25 07:15 104 H 124/58 L 03/06/25 07:11 95 H 100 03/06/25 07:06 97 H 99 03/06/25 07:01 105 H 99 03/06/25 07:00 18 03/06/25 07:00 18 03/06/25 06:59 96 H 140/61 03/06/25 06:57 91 H 133/61 03/06/25 06:56 102 H 99 03/06/25 06:55 96 H 139/66 03/06/25 06:53 90 137/62 03/06/25 06:52 100 H 94 03/06/25 06:51 97 03/06/25 06:51 91 H 03/06/25 06:51 93 H 132/59 L 03/06/25 06:50 96 H 128/65 03/06/25 06:46 100 03/06/25 06:46 119 H 03/06/25 06:46 97 H 125/73 03/06/25 06:41 104 H 123/70 99 03/06/25 06:39 92 H 124/69 03/06/25 06:37 109 H 119/89 03/06/25 06:36 104 H 98 03/06/25 06:35 108 H 115/58 L 03/06/25 06:31 110 H 98 03/06/25 06:30 20 03/06/25 06:30 20 03/06/25 06:26 114 H 98 03/06/25 06:21 97 03/06/25 06:21 111 H 03/06/25 06:21 105 H 106/65 03/06/25 06:16 101 H 98 03/06/25 06:11 129 H 97 03/06/25 06:06 146 H 97 03/06/25 06:01 116 H 97 03/06/25 05:56 121 H 97 03/06/25 05:51 118 H 97 03/06/25 05:46 145 H 99 03/06/25 05:41 109 H 97 03/06/25 05:38 111 H 94 03/06/25 05:36 131 H 98 03/06/25 05:31 107 H 96 03/06/25 05:30 20 03/06/25 05:30 20 03/06/25 05:26 109 H 96 03/06/25 05:21 100 H 95 03/06/25 05:16 102 H 94 03/06/25 05:11 133 H 99 03/06/25 05:06 125 H 100 03/06/25 05:01 109 H 99 03/06/25 05:00 18 03/06/25 05:00 36.9 C 18 03/06/25 04:56 116 H 98 03/06/25 04:51 129 H 121/56 L 95 03/06/25 04:46 99 H 98 03/06/25 04:41 107 H 99 03/06/25 04:36 139 H 98 03/06/25 04:31 122 H 99 03/06/25 04:30 20 03/06/25 04:30 20 03/06/25 04:26 97 H 99 03/06/25 04:21 115 H 99 03/06/25 04:16 97 H 100 03/06/25 04:11 94 H 100 03/06/25 04:06 111 H 100 03/06/25 04:01 104 H 100 03/06/25 04:00 18 03/06/25 04:00 18 03/06/25 03:56 108 H 100 03/06/25 03:52 95 H 147/60 H 03/06/25 03:51 97 H 99 03/06/25 03:46 94 H 98 03/06/25 03:45 94 H 93 03/06/25 03:41 96 H 97 03/06/25 03:36 85 121/63 98 03/06/25 03:31 97 H 97 03/06/25 03:26 95 H 98 03/06/25 03:25 18 03/06/25 03:25 37.0 C 18 03/06/25 03:21 90 100 03/06/25 03:16 88 97 03/06/25 03:11 93 H 98 03/06/25 03:10 98 H 93 03/06/25 03:06 99 03/06/25 03:06 90 03/06/25 03:06 92 H 108/57 L 03/06/25 03:01 98 H 98 03/06/25 02:56 93 H 95 03/06/25 02:52 96 H 101/55 L 03/06/25 02:51 91 H 98 03/06/25 02:46 88 97 03/06/25 02:41 90 97 03/06/25 02:36 98 H 107/54 L 99 03/06/25 02:31 90 100 03/06/25 02:30 16 03/06/25 02:30 16 03/06/25 02:26 83 99 03/06/25 02:21 95 H 103/51 L 98 03/06/25 02:16 87 98 03/06/25 02:11 82 98 03/06/25 02:06 98 03/06/25 02:06 83 03/06/25 02:06 91 H 103/53 L 03/06/25 02:01 95 H 99 03/06/25 02:00 18 03/06/25 02:00 18 03/06/25 01:56 114 H 100 03/06/25 01:51 98 H 100 03/06/25 01:50 92 H 121/69 03/06/25 01:46 98 H 100 03/06/25 01:41 102 H 99 03/06/25 01:36 100 H 116/63 99 03/06/25 01:31 103 H 99 03/06/25 01:30 18 03/06/25 01:30 18 03/06/25 01:26 86 99 03/06/25 01:22 93 H 118/65 03/06/25 01:21 100 H 98 03/06/25 01:16 99 H 100 03/06/25 01:11 95 H 100 03/06/25 01:06 91 H 100 03/06/25 01:05 82 119/66 03/06/25 01:01 98 H 98 03/06/25 01:00 18 03/06/25 01:00 37.0 C 18 03/06/25 00:56 93 H 97 03/06/25 00:51 88 97 03/06/25 00:50 92 H 99/58 L 03/06/25 00:46 90 96 03/06/25 00:41 87 97 03/06/25 00:36 97 H 100/58 L 98 03/06/25 00:31 85 98 03/06/25 00:30 18 03/06/25 00:30 18 03/06/25 00:26 90 100 03/06/25 00:21 85 100 03/06/25 00:20 88 104/58 L 03/06/25 00:16 96 H 100 03/06/25 00:11 98 H 100 03/06/25 00:06 99 H 106/60 98 03/06/25 00:03 94 H 106/67 03/06/25 00:01 92 H 100 03/06/25 00:00 18 03/06/25 00:00 18 03/05/25 23:58 88 107/55 L 03/05/25 23:56 95 03/05/25 23:56 84 03/05/25 23:56 84 94 03/05/25 23:54 81 108/57 L 03/05/25 23:51 86 97 03/05/25 23:50 79 110/53 L 03/05/25 23:49 76 114/56 L 03/05/25 23:46 79 98 03/05/25 23:41 81 99 03/05/25 23:36 100 03/05/25 23:36 85 03/05/25 23:36 89 121/85 03/05/25 23:31 81 100 03/05/25 23:30 18 03/05/25 23:30 18 03/05/25 23:26 83 99 03/05/25 23:21 99 03/05/25 23:21 81 03/05/25 23:21 79 126/70 03/05/25 23:16 74 97 03/05/25 23:11 78 100 03/05/25 23:06 81 125/81 100 03/05/25 23:01 82 100 03/05/25 23:00 18 03/05/25 23:00 36.8 C 18 03/05/25 22:56 84 100 03/05/25 22:51 80 100 03/05/25 22:50 73 118/58 L 03/05/25 22:46 73 100 03/05/25 22:44 81 118/58 L 03/05/25 22:41 78 100 03/05/25 22:36 77 100 03/05/25 22:35 65 119/58 L 03/05/25 22:31 74 100 03/05/25 22:30 18 03/05/25 22:30 18 03/05/25 22:29 83 119/57 L 03/05/25 22:26 76 122/59 L 100 03/05/25 22:25 81 116/54 L 03/05/25 22:23 81 133/61 03/05/25 22:21 100 03/05/25 22:21 82 03/05/25 22:21 85 122/60 03/05/25 22:19 91 H 121/58 L 03/05/25 22:17 83 140/84 03/05/25 22:16 86 100 03/05/25 22:15 103 H 142/70 H 03/05/25 22:13 96 H 123/75 03/05/25 22:11 98 H 100 03/05/25 22:06 92 H 100 03/05/25 22:01 97 H 100 03/05/25 21:01 18 03/05/25 21:01 36.7 C 18 03/05/25 19:05 36.5 C 92 H 18 129/76 03/05/25 19:04 92 H 129/76 03/05/25 18:44 91 H 133/84 03/05/25 18:21 36.9 C 03/05/25 16:32 18 03/05/25 16:32 36.9 C 18 03/05/25 14:03 18 03/05/25 14:03 36.9 C 18 03/05/25 12:39 96 H 18 110/68 03/05/25 11:12 110 H 132/81 03/05/25 11:11 20 03/05/25 11:11 36.7 C 20 Pain Intensity Right Hip: Pain Intensity: 9 Transfer of Care Handoff Completed per policy Notes Mental Status: alert / awake / arousable Patient Amnestic to Procedure: Yes Nausea / Vomiting: adequately controlled Pain: adequately controlled Airway Patency, RR, SpO2: stable & adequate BP & HR: stable & adequate Hydration State: stable & adequate Anesthetic Complications: no major complications apparent
[2025-03-06] MEDS ORDERED: NO NARCOTICS OR SEDATIVES SCH (09:30)
[2025-03-06] MEDS ORDERED: DC INTRASPINAL MORPHINE SCH (09:30)
[2025-03-06] MEDS ORDERED: SODIUM CHLORIDE 0.9% 1,000 ML IV SCH (09:30)
[2025-03-06] MEDS: METHYLENE BLUE 0.5% 10 ML VIAL ONE (09:31)
[2025-03-06] MEDS: KETOROLAC 30 MG/ML VIAL IV SCH (09:42)
[2025-03-06] MEDS: GELATIN SPONGE SZ 100 EXT ONE (10:04)
[2025-03-06] MEDS: SODIUM CHLORIDE 0.9% PF INJ 10 ML VIAL EPI STA (10:06)
[2025-03-06] MEDS: BUPIVACAINE 0.25% PF 30 ML VIAL EPI STA (10:06)
[2025-03-06] MEDS: LIDOCAINE 2%/EPINEPHRINE 1:200,000 20 ML PF EPI STA (10:06)
[2025-03-06] MEDS: LACTATED RINGER'S 1,000 ML IV SCH ×2 (10:07)
[2025-03-06] MEDS: MINERAL OIL 30 ML UDC ONE (10:07)
[2025-03-06] MEDS: TERBUTALINE SULFATE 1 MG/ML VIAL ONE (10:07)
[2025-03-06] MEDS: DIPHTHER/TETAN/PERTUS Vaccine (Tdap, Adol/Adult) 0.5mL IM ONE (10:08)
[2025-03-06] MEDS: MEASLES, MUMPS & RUBELLA VIRUS VACCINE (MMR) 0.5ML VIAL SQ ONE (10:08)
[2025-03-06] MEDS: IRON SUCROSE 200 MG in SODIUM CHLORIDE 0.9% 100 ML IV ONE (10:13)
[2025-03-06] MEDS: MoRPHine SULFATE PF 1 MG/ML 10 ML AMP/VIAL INT SPINAL ONE (11:03)
[2025-03-06] MEDS: SIMETHICONE 80 MG CHEW PO SCH (15:01)
[2025-03-06] MEDS: ACETAMINOPHEN 325 MG TAB PO SCH (15:01)
[2025-03-06] MEDS: DOCUSATE SODIUM 100 MG CAP PO SCH (21:03)
[2025-03-06] MEDS: AMOXICILLIN/CLAVULANATE 875 MG TAB PO SCH (21:05)
[2025-03-06] MEDS: LACTATED RINGER'S 500 ML IV PRN (22:20)
[2025-03-07] MEDS ORDERED: diphenhydrAMINE Capsule 25 MG CAP PO PRN (03:24)
[2025-03-07] MEDS ORDERED: diphenhydrAMINE 50 MG/ML VIAL IV PRN (03:24)
[2025-03-07] MEDS ORDERED: PROMETHAZINE 12.5 MG/50.5 ML BAG IV PRN (03:24)
[2025-03-07] MEDS ORDERED: ONDANSETRON INJ 2 MG/ML 2 ML VIAL IV PRN (03:24)
[2025-03-07 07:30] LABS: Hematocrit (blood only) 24.0 % (37.0-47.0); Hemoglobin 7.9 g/dl (12.0-16.0); Immature Granulocytes # (auto) 0.11 K/uL (0.01-0.20); Immature Granulocytes % (auto) 0.9 %; Mean Corpuscular Hemoglobin 28.3 pg (25.0-34.0); Mean Corpuscular Volume 86.0 fL (80.0-100.0); Platelet Count 131 K/uL (130-400); RBC Morphology Unremarkable; RDW Standard Deviation 46.8 fL (36.4-46.3); Red Blood Count 2.79 M/uL (4.20-5.40); White Blood Count 12.12 K/ul (4.8-10.8)
[2025-03-07] MEDS: FERROUS SULFATE 325 MG TAB PO SCH (08:37)
[2025-03-07] MEDS: PRENATAL VITAMIN 1 TAB PO SCH (08:37)
[2025-03-07] MEDS: IBUPROFEN 600 MG TAB PO SCH (08:48)
[2025-03-07] MEDS: ACETAMINOPHEN 500 MG TAB PO SCH (08:52)
[2025-03-07] MEDS ORDERED: KETOROLAC 30 MG/ML VIAL IV PRN (08:59)
--- NOTE | 2025-03-07 09:22 | Obstetrical Progress Note ---
Date of Service March 07, 2025 Assessment & Plan (1) Anemia affecting : IV Venofer planned Trimester: third trimester Qualified Code(s): O99.013 - Anemia complicating , third trimester Subjective Ambulation: limited ambulation Voiding: ty catheter in place Passing Gas:: Yes Diet Tolerance:: regular diet Lochia:: Small Feeding Type:: breast feeding Current Pain Level(1-10): 0 flat affect noted. Ty is removed by RN. denies being SOB or dizzy. Physical Exam Constitutional WD/WN, vitals as above Gastrointestinal (Abdomen) Inspection/Auscultation: abdomen normal to inspection incision c/d/i. fundus firm below U. Musculoskeletal Extremities: extremities normal to inspection Skin no rashes, warm and dry Neurologic patellar DTR's 2+ bilat, sensation intact Psychiatric A+Ox3, euthymic affect Affect: + flat affect Genitourinary Vaginal packing removed Results & Data Vital Signs (Past 12 Hours) Vital Signs Temp Pulse Resp BP BP Pulse Ox O2 Del Method 03/07/25 08:55 36.6 C 79 16 103/68 100 Room Air 03/07/25 03:05 18 98 03/07/25 03:05 36.5 C 91 H 18 104/71 98 Room Air 03/07/25 01:05 18 95 03/07/25 00:33 36.9 C 88 18 105/70 97 Room Air 03/07/25 00:08 18 96 03/06/25 23:00 18 95 03/06/25 22:00 18 94 Laboratory Results Laboratory Results - last 72 hr 03/05/25 03/07/25 07:21 06:16 WBC 9.00 12.12 H RBC 4.20 2.79 L Hgb 11.2 L 7.9 L D Hct 35.0 L 24.0 L MCV 83.3 86.0 MCH 26.7 28.3 MCHC 32.0 32.9 RDW Std Deviation 45.1 46.8 H RDW Coeff of Linda 14.7 H 14.9 H Plt Count 185 131 MPV 11.3 11.5 Immature Gran % (Auto) 0.9 Neut % (Auto) 70.3 Lymph % (Auto) 17.7 Bremer % (Auto) 9.8 Eos % (Auto) 1.0 Baso % (Auto) 0.3 Neut # (Auto) 8.51 H Lymph # (Auto) 2.15 Bremer # (Auto) 1.19 H Eos # (Auto) 0.12 Baso # (Auto) 0.04 Immature Gran # (Auto) 0.11 RBC Morphology Unremarkable Treponema pallidum Ab Negative Blood Type O Positive Antibody Screen NEGATIVE
[2025-03-07] MEDS: IRON SUCROSE 200 MG in SODIUM CHLORIDE 0.9% 100 ML IV ONE (10:58)
[2025-03-07 23:14] VITALS: PULSE 69
[2025-03-08 08:21] LABS: Hematocrit (blood only) 26.6 % (37.0-47.0); Hemoglobin 8.5 g/dl (12.0-16.0)
[2025-03-08] MEDS: IBUPROFEN 600 MG TAB PO PRN (08:54)
--- NOTE | 2025-03-08 10:03 | Ultrasound Report ---
Clinical History: Pain Technique: Venous ultrasound evaluation was performed utilizing grayscale, color Doppler and wave form evaluation. Images were also obtained with and without compression Findings: The left common femoral, superficial femoral, popliteal, and visualized calf veins demonstrate normal anechoic lumens with full compressibility. Normal flow is seen on color Doppler images. Expected waveforms were produced with augmentation maneuvers Impression: No evidence of left leg deep venous thrombosis Electronically signed by Aurelio Azevedo 03-08-2025 10:03 AM
[2025-03-08 10:29] VITALS: RESP 18; TEMP 98.4; O2SAT 97
--- NOTE | 2025-03-08 10:34 | Obstetrical Progress Note ---
Date of Service March 08, 2025 Assessment & Plan Admission and Anticipated Discharge Date Admission Date: March 05, 2025 Subjective abdomen soft and non tender bowel sounds normal passing gas bandage is dry no calf tenderness ambulating well vaginal bleeding scant hgb 8.5 Results & Data Vital Signs (Past 12 Hours) Vital Signs Temp Pulse Resp BP Pulse Ox O2 Del Method 03/08/25 08:30 36.9 C 69 18 113/73 97 Room Air 03/07/25 23:12 36.5 C 69 16 108/69 94 Room Air
[2025-03-08 11:14] VITALS: BP 105/70
[2025-03-08] MEDS ORDERED: ACETAMINOPHEN 325 MG TAB PO PRN (14:59)
--- NOTE | 2025-03-10 06:46 | Coding Query ---
CODING QUERY To promote full compliance with coding requirements relating to patient care, provider participation is requested in all cases of lead mechanical engineer uncertainty. Please assist us with the question(s) below: Coding Question(s): 03/07/25 Progress Note lists Anemia affecting . Please clarify if the anemia was affecting or . Physician's Response(s): ( ) Anemia affecting ( x ) POA ( ) Anemia in the ( x ) cause Thank you Lety Juan R Principal Diagnosis: "that condition established after study, to be chiefly responsible for occasioning the admission of the patient to the hospital for care." Co-Existing Principal Diagnosis: "when two or more diagnoses equally meet the criteria for principal diagnosis as determined by the circumstances of admission, diagnostic work up, and/or therapy provided, and the Alphabetic Index, Tabular List, or another coding guideline does not provide sequencing direction, any one of the diagnoses may be sequenced first." "When the physician has documented what appears to be a current diagnosis in the body of the record, but has not included the diagnosis in the final diagnostic statement, the physician should be asked whether the diagnosis should be added." ([facility] 2 QTR90. p3-4) ARYA
--- NOTE | 2025-03-17 18:11 | Discharge Summary ---
Date of Service March 17, 2025 Admission HPI Per Admitting Provider 29 F P0000 at 40.3 weeks presents to L&D in labor and feeling wet. She previously had a with a prior for arrest of descent due to macrosomia. She wants to try to this . I gave her the risks and benefits of trial of labor and she is consenting to have TOLAC. Discharge Data Consultations 03/05/25 07:13 Consult Anesthesiology Stat 03/07/25 12:25 Consult Behavioral Health Liaison Routine Procedures Performed Operation Date: 03/06/25 07:30 Actual Procedures p Section in LD with the of a live female child at 0757 and repair of second degree vaginal laceration - Reinier Rodriguez MD Hospital Course (1) Delivery by section of full-term infant: (2) History of delivery: patient is a 29-year-old -0-0-1 at 40 weeks and 5 days she was admitted on March 05, 2025 for contractions and in early labor. Patient has a history of prior 2 years ago For arrest of descent in second stage of phase and macrosomia, and she was planning to have TOLAC/ during this she originally scheduled induction of labor for SAMANTHA/ for next week and she will be 41+ weeks. Her cervix was 4 cm dilated, 75% effaced and head was at -1 station she wanted to expectant management without medications, without oxytocin, AROM or epidural. Her cervix progressed slowly to 6 cm in evening when she accepted AROM. she has not received epidural for pain. She done progressed slowly and became fully dilated at 4 AM after which she pushed over 2 hours with no progress in head station. patient was counseled for repeat due to arrest of descent in active stage of labor and suspected macrosomia. She accepted the risks and benefits and signed informed consent. She was taken to the OR for repeat low-transverse , delivered a viable female without any complications. See dictated op note for details. On postop recovery patient was doing well, vital signs stable afebrile, urine output was adequate. postop day #1 patient was doing well, vital signs stable afebrile, ambulating, tolerating regular diet, passing gas. She was anemic and asymptomatic, received IV iron. postop day #2 patient was doing well, vital signs stable afebrile her H&H was stable and she wanted to be discharged. Discharge instructions were given. Prescription written for pain. She is to be seen in office in a week for incision check. All questions were answered. (3) Patient desires vaginal after section ():
== END 2025-03-08 14:54 | disposition home or self-care (01) | DRG 788 ==
LOC: OPB 06:06 → 4S1 06:10 → 4E2 03-06 11:50